=== PATIENT | female | born 1940 | race Caucasian/White ===

== ENCOUNTER → 2016-05-11 | Outpatient (CLI) | payer MEDICARE, OTHER ==
[2016-05-11 10:05] LABS: ALANINE AMINOTRANSFERASE 29 U/L (9-52); ALBUMIN 4.4 g/dL (3.5-5.0); ALKALINE PHOSPHATASE 72 U/L (38-126); ANION GAP 13 (5-19); ASPARTATE AMINO TRANSFERASE 27 U/L (14-36); BILIRUBIN,DIRECT 0.1 mg/dL (0.0-0.4); BILIRUBIN,TOTAL 0.8 mg/dL (0.2-1.3); BLOOD UREA NITROGEN 23 mg/dL (7-20); CALCIUM 9.1 mg/dL (8.4-10.2); CARBON DIOXIDE 28 mmol/L (22-30); CHLORIDE 100 mmol/L (98-107); CHOLESTEROL 226.99 mg/dL (0-200); CREATININE RESULT 0.77 mg/dL (0.52-1.25); Direct HDL 58 mg/dL (>40); GLUCOSE 141 mg/dL (75-110); POTASSIUM 4.1 mmol/L (3.6-5.0); TOTAL PROTEIN 6.9 g/dL (6.3-8.2); TRIGLYCERIDES 99 mg/dL (<150)
[2016-05-11 10:22] LABS: DIRECT LDL 127 mg/dL (<100)
[2016-05-11 10:27] LABS: ANION GAP 13 (5-19); BLOOD UREA NITROGEN 23 mg/dL (7-20); CALCIUM 9.1 mg/dL (8.4-10.2); CARBON DIOXIDE 28 mmol/L (22-30); CHLORIDE 100 mmol/L (98-107); CHOLESTEROL 226.99 mg/dL (0-200); CREATININE RESULT 0.77 mg/dL (0.52-1.25); DIRECT LDL 127 mg/dL (<100); Direct HDL 58 mg/dL (>40); GLUCOSE 141 mg/dL (75-110); POTASSIUM 4.1 mmol/L (3.6-5.0); TRIGLYCERIDES 99 mg/dL (<150)
== END ==
LOC: OD 08:05
PROVIDERS: ATTEND Family Medicine
DX: E11.9 Type 2 diabetes mellitus without complications (principal); I10 Essential (primary) hypertension; E78.5 Hyperlipidemia, unspecified
CPT/HCPCS: 36415; 80048; 80053; 80061; 83036; 84443

== ENCOUNTER 2016-06-08 15:04 | Emergency (ER) | payer MEDICARE, OTHER ==
--- NOTE | 2016-06-08 16:00 | ER Document Report ---
ED Medical Screen (RME) - General Chief Complaint: Swelling of Lower Extremity Stated Complaint: SWOLLEN LEGS Mode of Arrival: Ambulatory Information source: Patient TRAVEL OUTSIDE OF THE [place] IN LAST 30 DAYS: No - HPI Onset: Other - 2 WEEKS? Onset/Duration: Gradual Quality of pain: Pressure Severity: Mild Associated Symptoms: Leg swelling. denies: Chest pain, Chills, Fever, Shortness of breath Exacerbated by: Other - WORSE LATE IN THE DAY Relieved by: Denies Similar symptoms previously: No Recently seen / treated by doctor: Yes - Related Data Smoking: Non-smoker Frequency of alcohol use: None Drug Abuse: None Allergies/Adverse Reactions: diphenhydramine HCl [From Benadryl] Allergy (Severe, Verified 06/08/16 15:53) trouble breathing, redness of skin cortisone [Cortisone] Allergy (Unknown, Verified 06/08/16 15:53) oxcarbazepine [From Trileptal] Allergy (Verified 06/08/16 15:53) WEIGHT LOSS erythromycin base [Erythromycin Base] Adverse Reaction (Mild, Verified 06/08/16 15:53) upset stomach Sulfa (Sulfonamide Antibiotics) Adverse Reaction (Mild, Verified 06/08/16 15:53) itchy eyes IVP dye Allergy (Mild, Uncoded 06/08/16 15:53) splotches Past Medical History - General Information source: Patient - Social History Cigarette use (# per day): No Chew tobacco use (# tins/day): No Frequency of alcohol use: None Drug Abuse: None Lives with: Family Family history: None - Past Medical History Cardiac Medical History: Reports: Hx Hypercholesterolemia, Hx Hypertension - UP AND DOWN Denies: Hx Coronary Artery Disease - Neg cath 11/16, Hx Heart Attack - catherization Pulmonary Medical History: Reports: Hx Bronchitis Denies: Hx Asthma, Hx COPD, Hx Pneumonia, Hx Tuberculosis Neurological Medical History: Denies: Hx Cerebrovascular Accident, Hx Seizures Renal/ Medical History: Denies: Hx Peritoneal Dialysis GI Medical History: Reports: Hx Gastroesophageal Reflux Disease, Hx Hiatal Hernia, Hx Ulcer - years ago. Denies: Hx Hepatitis Musculoskeltal Medical History: Reports Hx Arthritis Psychiatric Medical History: Reports: Hx Anxiety, Hx Bipolar Disorder, Hx Depression Infectious Medical History: Denies: Hx Hepatitis Past Surgical History: Reports: Hx Cardiac Catheterization - 11/2011, Hx Cholecystectomy, Hx Hysterectomy, Hx Orthopedic Surgery - cyst removed right wrist and right shoulder. Denies: Hx Mastectomy, Hx Open Heart Surgery, Hx Pacemaker - Immunizations Immunizations up to date: No Hx Diphtheria, Pertussis, Tetanus Vaccination: No - unk Review of Systems - Review of Systems Constitutional: No symptoms reported EENT: No symptoms reported Cardiovascular: Edema. denies: Chest pain, Palpitations, Orthopnea Respiratory: No symptoms reported Gastrointestinal: No symptoms reported Skin: No symptoms reported Neurological/Psychological: No symptoms reported Physical Exam - Vital signs Vitals: Temp Pulse Resp BP Pulse Ox 98.7 F 88 20 171/71 H 97 06/08/16 15:14 06/08/16 15:14 06/08/16 15:14 06/08/16 15:14 06/08/16 15:14 Interpretation: Hypertensive. No: Tachycardic, Tachypneic - General General appearance: Appears well, Alert In distress: None - HEENT Head: Normocephalic Eyes: Normal Conjunctiva: Normal Ears: Normal Nasal: Normal Mouth/Lips: Normal Mucous membranes: Normal - Respiratory Respiratory status: No respiratory distress - Cardiovascular Rhythm: Regular - Abdominal Inspection: Obese - Back Back: Normal - Extremities General upper extremity: Normal inspection General lower extremity: Edema - 2+ BILAT.. No: Normal inspection Course - Vital Signs Vital signs: Temp Pulse Resp BP Pulse Ox 98.7 F 88 20 171/71 H 97 06/08/16 15:14 06/08/16 15:14 06/08/16 15:14 06/08/16 15:14 06/08/16 15:14
[2016-06-08 17:07] LABS: APPEARANCE,URINE CLEAR; BILIRUBIN,URINE NEGATIVE (NEGATIVE); GLUCOSE, URINE NEGATIVE (NEGATIVE); KETONES,URINE NEGATIVE (NEGATIVE); LEUKOCYTE ESTERASE,URINE NEGATIVE (NEGATIVE); NITRITE,URINE NEGATIVE (NEGATIVE); PROTEIN,URINE NEGATIVE (NEGATIVE); URINE SPECIFIC GRAVITY 1.005; UROBILINOGEN,URINE NEGATIVE mg/dL (<2.0)
--- NOTE | 2016-06-08 18:35 | ER Document Report ---
ED General - General Chief Complaint: Swelling of Lower Extremity Stated Complaint: SWOLLEN LEGS Mode of Arrival: Ambulatory Information source: Patient, [facility] Records Notes: This is a 76-year-old female who presents for evaluation of edema. She states that she feels swollen all over but specifically in her legs. She states that this has been progressing for the past 2 weeks. She did see her primary care physician Dr. Miles 2 weeks ago, and states that she was told to take Lasix twice a day which she has been compliant with. She states that her lower extremity swelling has gotten worse. Of note she denies any chest pain or shortness of breath although occasionally she has some dyspnea on exertion but this does not appear to be new for her. She denies any fevers chills or systemic symptoms. She has had no dysuria. TRAVEL OUTSIDE OF THE [place] IN LAST 30 DAYS: No - Related Data Allergies/Adverse Reactions: diphenhydramine HCl [From Benadryl] Allergy (Severe, Verified 06/08/16 15:53) trouble breathing, redness of skin cortisone [Cortisone] Allergy (Unknown, Verified 06/08/16 15:53) oxcarbazepine [From Trileptal] Allergy (Verified 06/08/16 15:53) WEIGHT LOSS erythromycin base [Erythromycin Base] Adverse Reaction (Mild, Verified 06/08/16 15:53) upset stomach Sulfa (Sulfonamide Antibiotics) Adverse Reaction (Mild, Verified 06/08/16 15:53) itchy eyes IVP dye Allergy (Mild, Uncoded 06/08/16 15:53) splotches Past Medical History - General Information source: Patient - Social History Smoking Status: Unknown if Ever Smoked Cigarette use (# per day): No Chew tobacco use (# tins/day): No Frequency of alcohol use: None Drug Abuse: None Lives with: Family Family History: Reviewed & Not Pertinent Patient has suicidal ideation: No Patient has homicidal ideation: No - Past Medical History Cardiac Medical History: Reports: Hx Hypercholesterolemia, Hx Hypertension - UP AND DOWN Denies: Hx Coronary Artery Disease - Neg cath 11/16, Hx Heart Attack - catherization Pulmonary Medical History: Reports: Hx Bronchitis Denies: Hx Asthma, Hx COPD, Hx Pneumonia, Hx Tuberculosis Neurological Medical History: Denies: Hx Cerebrovascular Accident, Hx Seizures Renal/ Medical History: Denies: Hx Peritoneal Dialysis GI Medical History: Reports: Hx Gastroesophageal Reflux Disease, Hx Hiatal Hernia, Hx Ulcer - years ago. Denies: Hx Hepatitis Musculoskeltal Medical History: Reports Hx Arthritis Psychiatric Medical History: Reports: Hx Anxiety, Hx Bipolar Disorder, Hx Depression Infectious Medical History: Denies: Hx Hepatitis Past Surgical History: Reports: Hx Cardiac Catheterization - 11/2011, Hx Cholecystectomy, Hx Hysterectomy, Hx Orthopedic Surgery - cyst removed right wrist and right shoulder. Denies: Hx Mastectomy, Hx Open Heart Surgery, Hx Pacemaker - Immunizations Immunizations up to date: No Hx Diphtheria, Pertussis, Tetanus Vaccination: No - unk Hx Pneumococcal Vaccination: 11/06/11 Review of Systems - Review of Systems Constitutional: denies: Chills, Fever, Weakness, Recent illness EENT: No symptoms reported. denies: Nose congestion, Throat pain Cardiovascular: See HPI. denies: Chest pain, Palpitations, Orthopnea Respiratory: No symptoms reported. denies: Cough, Hurts to breathe Gastrointestinal: No symptoms reported Genitourinary: No symptoms reported. denies: Dysuria Musculoskeletal: See HPI, Leg swelling Skin: No symptoms reported Neurological/Psychological: No symptoms reported Physical Exam - Vital signs Vitals: Temp Pulse Resp BP Pulse Ox 98.7 F 88 20 171/71 H 97 06/08/16 15:14 06/08/16 15:14 06/08/16 15:14 06/08/16 15:14 06/08/16 15:14 - Notes Notes: PHYSICAL EXAMINATION: GENERAL: Well-appearing, well-nourished and in no acute distress. Very pleasant and conversant with no conversational dyspnea HEAD: Atraumatic, normocephalic. EYES: Pupils equal round and reactive to light, extraocular movements intact, sclera anicteric, conjunctiva are normal. ENT: nares patent, oropharynx clear without exudates. Moist mucous membranes. NECK: Normal range of motion, supple without lymphadenopathy LUNGS: Breath sounds clear to auscultation bilaterally and equal. No wheezes rales or rhonchi. HEART: Regular rate and rhythm without murmurs ABDOMEN: Soft, nontender, normoactive bowel sounds. No guarding, no rebound. No masses appreciated. EXTREMITIES: Normal range of motion. 2+ pitting edema BLE which is symmetric, mild erythema to anterior shins bilaterally, DNVI NEUROLOGICAL: Cranial nerves grossly intact. Normal speech. Motor strength +5/ 5 B upper and lower extremities, no focal sensory deficits noted PSYCH: Normal mood, normal affect. SKIN: Warm, Dry, no rashes or lesions noted. Course - Re-evaluation Re-evalutation: 06/08/16 20:00 Labs, EKG and chest x-ray reviewed and are reassuring. The patient has no chest pain or shortness of breath. 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 Webb earlier today about her symptoms. He recommended that she cut her dose of amlodipine and half. She actually has a follow-up appointment with him on Sunday which is 4 days. She is instructed to decrease her dose of amlodipine as directed and she will take an extra dose of Lasix tonight. Also she is instructed to elevate her legs when able. She is appropriate for discharge at this time, and she is very comfortable with the plan. Strict return precautions were discussed. - Vital Signs Vital signs: Temp Pulse Resp BP Pulse Ox 98.3 F 61 16 159/75 H 97 06/08/16 20:20 06/08/16 20:20 06/08/16 20:20 06/08/16 20:20 06/08/16 20:20 - Laboratory Result Diagrams: 06/08/16 18:30 06/08/16 18:30 Laboratory results interpreted by me: 06/08/16 06/08/16 18:30 18:30 RBC 5.39 H Glucose 130 H Discharge - Discharge Clinical Impression: Peripheral edema Hypertension Qualifiers: Hypertension type: essential hypertension Qualified Code(s): I10 - Essential ( primary) hypertension Condition: Stable Disposition: HOME, SELF-CARE Additional Instructions: Edema, Peripheral You have swelling in your legs. This is called peripheral edema. It can be caused by "leaky capillaries," inflammation, disease of the leg veins, or excess salt and water in your body. Edema may be a sign of heart, kidney, or liver disease. A medical evaluation can determine if there is a serious underlying cause for your edema. Avoid prolonged standing. If you must sit for a long time, occasionally get up and walk around or elevate your legs. Support stockings can be helpful in limiting swelling. Often diuretic or water pills are used to remove excess salt and water from your body. Call the doctor or return if you develop increased swelling, pain, or redness, shortness of breath, chest pain, or any other significant change. As discussed and recommended by your steamboat captain today, decrease your Amlodipine dose by 1/2. Also, take an extra dose of your lasix tonight. Elevate your legs when able. Follow up with Dr. Webb on Sunday as scheduled. Return to the ER for fever, chest pain, breathing trouble, or any worsening symptoms or concerns as we discussed. Forms: Elevated Blood Pressure Referrals: YON MILES MD [Primary Care Provider] - Follow up in 3-5 days
[2016-06-08 18:59] LABS: ABSOLUTE BASOPHILS # (AUTO) 0.1 10^3/uL (0.0-0.2); ABSOLUTE EOSINOPHILS # (AUTO) 0.3 10^3/uL (0.0-0.6); ABSOLUTE LYMPHOCYTES (AUTO) 1.5 10^3/uL (0.5-4.7); ABSOLUTE MONOCYTES (AUTO) 0.5 10^3/uL (0.1-1.4); ABSOLUTE NEUT (AUTO) 4.9 10^3/uL (1.7-8.2); BASOPHILS % (AUTO) 1.1 % (0-2); EOSINOPHILS % (AUTO) 4.4 % (0-6); HEMATOCRIT 46.2 % (36.0-47.0); HEMOGLOBIN 15.4 g/dL (12.0-15.5); LYMPHOCYTES % (AUTO) 20.8 % (13-45); MEAN CORPUSCULAR HEMOGLOBIN 28.6 pg (27.0-33.4); MEAN CORPUSCULAR HGB CONC 33.4 g/dL (32.0-36.0); MEAN CORPUSCULAR VOLUME 86 fl (80-97); MONOCYTES % (AUTO) 6.9 % (3-13); RED BLOOD COUNT 5.39 10^6/uL (3.72-5.28); RED CELL DISTRIBUTION WIDTH 13.3 % (11.5-14.0); SEGMENTED NEUTROPHILS % (AUTO) 66.8 % (42-78); WHITE BLOOD COUNT 7.4 10^3/uL (4.0-10.5)
[2016-06-08 19:21] LABS: ALANINE AMINOTRANSFERASE 37 U/L (9-52); ALBUMIN 4.5 g/dL (3.5-5.0); ALKALINE PHOSPHATASE 87 U/L (38-126); ANION GAP 14 (5-19); ASPARTATE AMINO TRANSFERASE 31 U/L (14-36); BILIRUBIN,DIRECT 0.3 mg/dL (0.0-0.4); BILIRUBIN,TOTAL 0.9 mg/dL (0.2-1.3); BLOOD UREA NITROGEN 18 mg/dL (7-20); CARBON DIOXIDE 28 mmol/L (22-30); CHLORIDE 100 mmol/L (98-107); CREATININE RESULT 0.79 mg/dL (0.52-1.25); GLUCOSE 130 mg/dL (75-110); POTASSIUM 4.2 mmol/L (3.6-5.0); SODIUM 141.5 mmol/L (137-145); TOTAL PROTEIN 7.5 g/dL (6.3-8.2)
[2016-06-08 20:27] VITALS: BP 159/75
--- NOTE | 2016-06-09 08:14 | EKG REPORT ---
SEVERITY:- ABNORMAL ECG - SINUS RHYTHM JAYNE, CONSIDER BIATRIAL ABNORMALITIES LEFT BUNDLE BRANCH BLOCK : Confirmed by: Jose Bell MD 09-Jun-2016 08:13:40
== END 2016-06-08 20:20 | disposition home or self-care (01) ==
LOC: ER 15:04
DX: R60.0 Localized edema (principal); I10 Essential (primary) hypertension; M79.89 Other specified soft tissue disorders
CPT/HCPCS: 36415; 71010; 80053; 81001; 83880; 85025; 93005; 93010; 99283

== ENCOUNTER 2016-08-07 20:27 | Emergency (ER) | payer MEDICARE, OTHER ==
[2016-08-07 21:59] LABS: AMORPHOUS SEDIMENT,URINE TRACE /HPF; APPEARANCE,URINE SLIGHTLY-CLOUDY; BILIRUBIN,URINE NEGATIVE (NEGATIVE); GLUCOSE, URINE NEGATIVE (NEGATIVE); KETONES,URINE NEGATIVE (NEGATIVE); LEUKOCYTE ESTERASE,URINE LARGE (NEGATIVE); NITRITE,URINE NEGATIVE (NEGATIVE); PROTEIN,URINE NEGATIVE (NEGATIVE); URINE SPECIFIC GRAVITY 1.005; UROBILINOGEN,URINE NEGATIVE mg/dL (<2.0)
[2016-08-07] MEDS ORDERED: CEPHALEXIN 500 MG CAPSULE PO ONE (22:24)
[2016-08-07] MEDS ORDERED: PHENAZOPYRIDINE HCL 100 MG TABLET PO ONE (22:24)
--- NOTE | 2016-08-07 22:26 | ER Document Report ---
ED General - General Chief Complaint: Urinary Problem Stated Complaint: PAINFUL URINATION Time Seen by Provider: 08/07/16 22:12 Notes: Patient is a 76-year-old female who presents with 10 days of dysuria that has been unresolved despite outpatient treatment with nitrofurantoin. Patient does describe it as a severe, burning pain that is worsened by passing urine. Nothing improves the pain other than Pyridium. Patient states this feels similar to when she has had urinary tract infections in the past. Denies any flank pain, fever or constitutional symptoms. TRAVEL OUTSIDE OF THE [place] IN LAST 30 DAYS: No - Related Data Allergies/Adverse Reactions: diphenhydramine HCl [From Benadryl] Allergy (Severe, Verified 08/07/16 21:17) trouble breathing, redness of skin cortisone [Cortisone] Allergy (Unknown, Verified 08/07/16 21:17) oxcarbazepine [From Trileptal] Allergy (Verified 08/07/16 21:17) WEIGHT LOSS erythromycin base [Erythromycin Base] Adverse Reaction (Mild, Verified 08/07/16 21:17) upset stomach Sulfa (Sulfonamide Antibiotics) Adverse Reaction (Mild, Verified 08/07/16 21:17) itchy eyes IVP dye Allergy (Mild, Uncoded 08/07/16 21:17) splotches Past Medical History - General Information source: Patient - Social History Smoking Status: Never Smoker Chew tobacco use (# tins/day): No Frequency of alcohol use: None Drug Abuse: None Lives with: Family Family History: Reviewed & Not Pertinent Patient has suicidal ideation: No Patient has homicidal ideation: No - Past Medical History Cardiac Medical History: Reports: Hx Hypercholesterolemia, Hx Hypertension - UP AND DOWN Denies: Hx Coronary Artery Disease - Neg cath 11/16, Hx Heart Attack - catherization Pulmonary Medical History: Reports: Hx Bronchitis Denies: Hx Asthma, Hx COPD, Hx Pneumonia, Hx Tuberculosis Neurological Medical History: Denies: Hx Cerebrovascular Accident, Hx Seizures Renal/ Medical History: Denies: Hx Peritoneal Dialysis GI Medical History: Reports: Hx Gastroesophageal Reflux Disease, Hx Hiatal Hernia, Hx Ulcer - years ago. Denies: Hx Hepatitis Musculoskeltal Medical History: Reports Hx Arthritis Psychiatric Medical History: Reports: Hx Anxiety, Hx Bipolar Disorder, Hx Depression Infectious Medical History: Denies: Hx Hepatitis Past Surgical History: Reports: Hx Cardiac Catheterization - 11/2011, Hx Cholecystectomy, Hx Hysterectomy, Hx Orthopedic Surgery - cyst removed right wrist and right shoulder. Denies: Hx Mastectomy, Hx Open Heart Surgery, Hx Pacemaker - Immunizations Immunizations up to date: No Hx Diphtheria, Pertussis, Tetanus Vaccination: No - unk Hx Pneumococcal Vaccination: 11/06/11 Review of Systems - Review of Systems Notes: Constitutional: Negative for fever. HENT: Negative for sore throat. Eyes: Negative for visual changes. Cardiovascular: Negative for chest pain. Respiratory: Negative for shortness of breath. Gastrointestinal: Negative for abdominal pain, vomiting or diarrhea. Genitourinary: Positive for dysuria. Musculoskeletal: Negative for back pain. Skin: Negative for rash. Neurological: Negative for headaches, weakness or numbness. 10 point ROS negative except as marked above and in HPI. Physical Exam - Vital signs Vitals: Temp Pulse Resp BP Pulse Ox 98.6 F 58 L 18 140/85 H 100 08/07/16 21:17 08/07/16 21:17 08/07/16 21:17 08/07/16 21:17 08/07/16 21:17 Interpretation: Bradycardic Notes: PHYSICAL EXAMINATION: GENERAL: Well-appearing, well-nourished and in no acute distress. HEAD: Atraumatic, normocephalic. EYES: Pupils equal round and reactive to light, extraocular movements intact, sclera anicteric, conjunctiva are normal. ENT: nares patent, oropharynx clear without exudates. Moist mucous membranes. NECK: Normal range of motion, supple without lymphadenopathy LUNGS: Breath sounds clear to auscultation bilaterally and equal. No wheezes rales or rhonchi. HEART: Regular rate and rhythm without murmurs ABDOMEN: Soft, nontender, normoactive bowel sounds. No guarding, no rebound. No masses appreciated. No flank tenderness on palpation EXTREMITIES: Normal range of motion, no pitting or edema. No cyanosis. NEUROLOGICAL: No focal neurological deficits. Moves all extremities spontaneously and on command. PSYCH: Normal mood, normal affect. SKIN: Warm, Dry, normal turgor, no rashes or lesions noted. Course - Re-evaluation Re-evalutation: 08/07/16 22:24 Patient presents with symptoms consistent with an acute cystitis. Vitals wnl. No history of fever, flank pain, or constitution symptoms to suggest ascending infection at this time. Patient is well in appearance, tolerating oral intake without difficulty. No focal abdominal tenderness to suggest acute appendicitis , biliary pathology, acute pancreatitis, tubo-ovarian abscesses, or pelvic inflammatory disease. Patient will be started on antibiotics at this time. A culture has been sent. They will be discharged with return precautions and follow-up recommendations. - Vital Signs Vital signs: Temp Pulse Resp BP Pulse Ox 98.6 F 53 L 16 152/55 H 96 08/07/16 22:34 08/07/16 22:34 08/07/16 22:34 08/07/16 22:34 08/07/16 22:34 - Laboratory Laboratory results interpreted by me: 08/07/16 21:30 Urine Blood MODERATE H Ur Leukocyte Esterase LARGE H Discharge - Discharge Clinical Impression: Cystitis Condition: Good Disposition: HOME, SELF-CARE Additional Instructions: Your urine shows findings consistent with a urinary tract infection. Please take all the antibiotics as directed even if your symptoms have improved. Please follow-up with your primary care physician as needed. Return to emergency room if you develop fever >101F, persistent vomiting, become lethargic , have severe pain in your sides, or any other symptoms that are concerning to you. Prescriptions: Cephalexin Monohydrate [Keflex 500 mg Capsule] 500 mg PO QID #20 capsule Phenazopyridine HCl [Pyridium 100 Mg Tablet] 100 mg PO TID #15 tablet Referrals: YON WILLETT MD [Primary Care Provider] - Follow up as needed
[2016-08-07 22:41] VITALS: BP 152/55
== END 2016-08-07 22:40 | disposition home or self-care (01) ==
LOC: ER 20:27
DX: N30.90 Cystitis, unspecified without hematuria (principal); E78.00 Pure hypercholesterolemia, unspecified; I10 Essential (primary) hypertension; K21.9 Gastro-esophageal reflux disease without esophagitis; Z88.3 Allergy status to other anti-infective agents; Z88.2 Allergy status to sulfonamides; Z90.49 Acquired absence of other specified parts of digestive tract; Z90.710 Acquired absence of both cervix and uterus
CPT/HCPCS: 99283; 36415; 87086; 87088; 81001; 87186; A9270 ×2; J3490

== ENCOUNTER 2016-08-13 17:34 | Emergency (ER) | payer MEDICARE, OTHER ==
--- NOTE | 2016-08-13 18:12 | ER Document Report ---
ED Medical Screen (RME) - General Chief Complaint: Urinary Problem Stated Complaint: URINARY SYMPTOMS Time Seen by Provider: 08/13/16 18:04 Mode of Arrival: Ambulatory Information source: Patient Notes: 76-year-old female with complaints of abdominal pain urinary symptoms and flank pain. Patient notes she has been on recent 2 doses of antibiotics I have greeted and performed a rapid initial assessment of this patient. A comprehensive ED assessment and evaluation of the patient, analysis of test results and completion of the medical decision making process will be conducted by additional ED providers. PHYSICAL EXAMINATION: GENERAL: Well-appearing, well-nourished and in no acute distress. HEAD: Atraumatic, normocephalic. EYES: Pupils equal round extraocular movements intact, conjunctiva are normal. ENT: Nares patent NECK: Normal range of motion LUNGS: No respiratory distress Musculoskeletal: Normal range of motion NEUROLOGICAL: Normal speech, normal gait. PSYCH: Normal mood, normal affect. SKIN: Warm, Dry, normal turgor, no rashes or lesions noted. TRAVEL OUTSIDE OF THE [place] IN LAST 30 DAYS: No - Related Data Allergies/Adverse Reactions: diphenhydramine HCl [From Benadryl] Allergy (Severe, Verified 08/07/16 21:17) trouble breathing, redness of skin cortisone [Cortisone] Allergy (Unknown, Verified 08/07/16 21:17) oxcarbazepine [From Trileptal] Allergy (Verified 08/07/16 21:17) WEIGHT LOSS erythromycin base [Erythromycin Base] Adverse Reaction (Mild, Verified 08/07/16 21:17) upset stomach Sulfa (Sulfonamide Antibiotics) Adverse Reaction (Mild, Verified 08/07/16 21:17) itchy eyes IVP dye Allergy (Mild, Uncoded 08/07/16 21:17) splotches Past Medical History - Social History Family history: None - Past Medical History Cardiac Medical History: Reports: Hx Hypercholesterolemia, Hx Hypertension - UP AND DOWN Denies: Hx Coronary Artery Disease - Neg cath 11/16, Hx Heart Attack - catherization Pulmonary Medical History: Reports: Hx Bronchitis Denies: Hx Asthma, Hx COPD, Hx Pneumonia, Hx Tuberculosis Neurological Medical History: Denies: Hx Cerebrovascular Accident, Hx Seizures Renal/ Medical History: Denies: Hx Peritoneal Dialysis GI Medical History: Reports: Hx Gastroesophageal Reflux Disease, Hx Hiatal Hernia, Hx Ulcer - years ago. Denies: Hx Hepatitis Musculoskeltal Medical History: Reports Hx Arthritis Psychiatric Medical History: Reports: Hx Anxiety, Hx Bipolar Disorder, Hx Depression Infectious Medical History: Denies: Hx Hepatitis Past Surgical History: Reports: Hx Cardiac Catheterization - 11/2011, Hx Cholecystectomy, Hx Hysterectomy, Hx Orthopedic Surgery - cyst removed right wrist and right shoulder. Denies: Hx Mastectomy, Hx Open Heart Surgery, Hx Pacemaker - Immunizations Immunizations up to date: No Hx Diphtheria, Pertussis, Tetanus Vaccination: No - unk Physical Exam - Vital signs Vitals: Temp Pulse Resp BP Pulse Ox 98 F 82 17 193/63 H 95 08/13/16 17:51 08/13/16 17:51 08/13/16 17:51 08/13/16 17:51 08/13/16 17:51 Course - Vital Signs Vital signs: Temp Pulse Resp BP Pulse Ox 98 F 82 17 193/63 H 95 08/13/16 17:51 08/13/16 17:51 08/13/16 17:51 08/13/16 17:51 08/13/16 17:51
[2016-08-13 18:47] LABS: APPEARANCE,URINE CLEAR; BILIRUBIN,URINE NEGATIVE (NEGATIVE); GLUCOSE, URINE NEGATIVE (NEGATIVE); KETONES,URINE NEGATIVE (NEGATIVE); LEUKOCYTE ESTERASE,URINE NEGATIVE (NEGATIVE); NITRITE,URINE NEGATIVE (NEGATIVE); PROTEIN,URINE NEGATIVE (NEGATIVE); URINE SPECIFIC GRAVITY 1.002; UROBILINOGEN,URINE NEGATIVE mg/dL (<2.0)
[2016-08-13 19:10] LABS: ABSOLUTE BASOPHILS # (AUTO) 0.1 10^3/uL (0.0-0.2); ABSOLUTE EOSINOPHILS # (AUTO) 0.4 10^3/uL (0.0-0.6); ABSOLUTE LYMPHOCYTES (AUTO) 2.1 10^3/uL (0.5-4.7); ABSOLUTE MONOCYTES (AUTO) 0.6 10^3/uL (0.1-1.4); ABSOLUTE NEUT (AUTO) 5.3 10^3/uL (1.7-8.2); EOSINOPHILS % (AUTO) 4.7 % (0-6); HEMATOCRIT 47.1 % (36.0-47.0); HEMOGLOBIN 15.7 g/dL (12.0-15.5); LYMPHOCYTES % (AUTO) 24.9 % (13-45); MEAN CORPUSCULAR HEMOGLOBIN 28.4 pg (27.0-33.4); MEAN CORPUSCULAR HGB CONC 33.4 g/dL (32.0-36.0); MEAN CORPUSCULAR VOLUME 85 fl (80-97); MONOCYTES % (AUTO) 7.1 % (3-13); RED BLOOD COUNT 5.54 10^6/uL (3.72-5.28); RED CELL DISTRIBUTION WIDTH 13.5 % (11.5-14.0); SEGMENTED NEUTROPHILS % (AUTO) 62.3 % (42-78); WHITE BLOOD COUNT 8.5 10^3/uL (4.0-10.5)
--- NOTE | 2016-08-13 19:11 | RADIOLOGY REPORT (SQ) ---
EXAM DESCRIPTION: CT ABD/PELVIS NO ORAL OR IV COMPLETED DATE/TIME: 08/13/2016 6:19 pm REASON FOR STUDY: abd pain COMPARISON: 02/21/2012 TECHNIQUE: CT scan of the abdomen and pelvis performed without intravenous or oral contrast. Images reviewed with lung, soft tissue, and bone windows. Reconstructed coronal and sagittal MPR images revi ewed. All images stored on PACS. All CT scanners at this facility use dose modulation, iterative reconstruction, and/or weight based d osing when appropriate to reduce radiation dose to as low as reasonably achievable (ALARA). [facility]: Dose Right [facility]: CareDose [facility]: Dose Right [facility]: Teradose 4D [facility]: Smart 6fusion RADIATION DOSE: Up-to-date CT equipment and radiation dose reduction techniques were employed. CTDIv ol: 17.1 mGy. DLP: 893 mGy-cm.mGy. LIMITATIONS: None. FINDINGS: LOWER CHEST: No significant findings. No nodules or infiltrates. NON-CONTRASTED LIVER, SPLEEN, ADRENALS: Evaluation limited by lack of IV contrast. No identified sign ificant masses. PANCREAS: No masses. No peripancreatic inflammatory changes. GALLBLADDER: Surgically absent. RIGHT KIDNEY AND URETER: No suspicious masses. Assessment limited by lack of IV contrast. No signif icant calcifications. No hydronephrosis or hydroureter. LEFT KIDNEY AND URETER: No suspicious masses. Assessment limited by lack of IV contrast. No signifi cant calcifications. No hydronephrosis or hydroureter. AORTA AND RETROPERITONEUM: No aneurysm. No retroperitoneal masses or adenopathy. BOWEL AND PERITONEAL CAVITY: Colonic diverticulosis. No obvious masses or inflammatory changes. No f ree fluid. APPENDIX: Normal. PELVIS, BLADDER, AND ABDOMINAL WALL:Prior hysterectomy. No free fluid. Bladder normal. BONES: No significant findings. OTHER: No other significant finding. IMPRESSION: NO ACUTE PROCESS IN THE ABDOMEN OR PELVIS. TECHNICAL DOCUMENTATION: JOB ID: [id number] Quality ID # [id number]: Final reports with documentation of one or more dose reduction techniques (e.g., Au tomated exposure control, adjustment of the mA and/or kV according to patient size, use of iterative reconstruction technique) 2010 [employer]- All Rights Reserved
--- NOTE | 2016-08-13 19:25 | ER Document Report ---
ED GI/ - General Chief Complaint: Urinary Problem Stated Complaint: URINARY SYMPTOMS Time Seen by Provider: 08/13/16 18:04 Mode of Arrival: Ambulatory Notes: The 76-year-old female presents to ED for urinary tract symptoms and pain in his flank. No fever no nausea or vomiting. She had a UTI on July 26 and that antibiotics and on Sunday she was seen and get another set of antibiotics she states she continued to have pelvic pain flank pain. TRAVEL OUTSIDE OF THE [place] IN LAST 30 DAYS: No - HPI Patient complains to provider of: Flank pain, Pelvic pain, Vaginal pain Onset: Timing/Duration: Intermittent Quality of pain: Burning Severity at maximum: Severe Severity in ED: Moderate Pain Level: 3 Location: Left flank, Right flank, Pelvis, Vaginal Vaginal bleeding (Compared to normal period): None Associated symptoms: Radiates to back Exacerbated by: Other - urination Relieved by: Denies Similar symptoms previously: Yes Recently seen / treated by doctor: Yes - Related Data Allergies/Adverse Reactions: diphenhydramine HCl [From Benadryl] Allergy (Severe, Verified 08/13/16 22:41) trouble breathing, redness of skin cortisone [Cortisone] Allergy (Unknown, Verified 08/13/16 22:41) oxcarbazepine [From Trileptal] Allergy (Verified 08/13/16 22:41) WEIGHT LOSS erythromycin base [Erythromycin Base] Adverse Reaction (Mild, Verified 08/13/16 22:41) upset stomach Sulfa (Sulfonamide Antibiotics) Adverse Reaction (Mild, Verified 08/13/16 22:41) itchy eyes IVP dye Allergy (Mild, Uncoded 08/13/16 22:41) splotches Past Medical History - General Information source: Patient - Social History Smoking Status: Never Smoker Cigarette use (# per day): No Chew tobacco use (# tins/day): No Smoking Education Provided: No Frequency of alcohol use: Rare Drug Abuse: None Occupation: Retired Lives with: Alone Family History: Reviewed & Not Pertinent Patient has suicidal ideation: No Patient has homicidal ideation: No - Past Medical History Cardiac Medical History: Reports: Hx Hypercholesterolemia, Hx Hypertension - UP AND DOWN Denies: Hx Coronary Artery Disease - Neg cath 11/16 Pulmonary Medical History: Reports: Hx Bronchitis EENT Medical History: Reports: None Neurological Medical History: Reports: None Endocrine Medical History: Reports: Hx Diabetes Mellitus Type 2 Renal/ Medical History: Reports: Other - fibroids Malignancy Medical History: Reports: None GI Medical History: Reports: Hx Gastroesophageal Reflux Disease, Hx Hiatal Hernia, Hx Ulcer - years ago, Hx Colonoscopy, Hx Endoscopy Musculoskeltal Medical History: Reports Hx Arthritis Skin Medical History: Reports None Psychiatric Medical History: Reports: Hx Anxiety, Hx Bipolar Disorder, Hx Depression Traumatic Medical History: Reports: None Infectious Medical History: Reports: None Past Surgical History: Reports: Hx Cardiac Catheterization - 11/2011, Hx Cholecystectomy, Hx Hysterectomy, Hx Orthopedic Surgery - cyst removed right wrist and right shoulder, Other - cyst removed from right shoulder and hand, 8 eye surgeries - Immunizations Immunizations up to date: No Hx Diphtheria, Pertussis, Tetanus Vaccination: No - unk Hx Pneumococcal Vaccination: 11/06/11 Review of Systems - Review of Systems Constitutional: No symptoms reported EENT: No symptoms reported Cardiovascular: No symptoms reported Respiratory: No symptoms reported Gastrointestinal: Abdominal pain. denies: Diarrhea, Nausea, Vomiting Genitourinary: Flank pain, Other - burning with urination Female Genitourinary: No symptoms reported Musculoskeletal: Back pain Skin: No symptoms reported Hematologic/Lymphatic: No symptoms reported Neurological/Psychological: No symptoms reported Physical Exam - Vital signs Vitals: Temp Pulse Resp BP Pulse Ox 98 F 82 17 193/63 H 95 08/13/16 17:51 08/13/16 17:51 08/13/16 17:51 08/13/16 17:51 08/13/16 17:51 Interpretation: Normal - Notes Notes: Physical Exam: General: Alert, appears well. HEENT: Normocephalic. Atraumatic. PERRLA. Extraocular movements intact. Oropharynx clear. Neck: Supple. Non-tender. Respiratory: No respiratory distress. Clear and equal breath sounds bilaterally. Cardiovascular: Regular rate and rhythm. Abdominal: Normal Inspection. Soft, tender lower abdomen and bilateral flank. No distension. Normal Bowel Sounds. Back: Non-tender. No deformity or step off. Bilateral CVA Extremities: Moves all four extremities. Upper extremities: Normal inspection. Non-tender. Normal color. Normal ROM. Normal temperature. Lower extremities: Normal inspection. Non-tender. No edema. Normal color. Normal ROM. Normal temperature. Neurological: Cranial nerves II-XII grossly intact bilaterally. Strength 5/5 throughout. Sensation intact to light touch. Normal cognition. AAOx4. Normal speech. Psychological: Normal affect. Normal Mood. Skin: Warm. Dry. Normal color. - General General appearance: Appears well, Alert - HEENT Head: Normocephalic, Atraumatic Eyes: Normal Pupils: PERRL - Respiratory Respiratory status: No respiratory distress Chest status: Nontender Breath sounds: Normal Chest palpation: Normal - Cardiovascular Rhythm: Regular Heart sounds: Normal auscultation Murmur: No - Abdominal Inspection: Normal Distension: No distension Bowel sounds: Normal Tenderness: Tender Organomegaly: No organomegaly - Back Back: Normal, Nontender - Extremities General upper extremity: Normal inspection, Nontender, Normal color, Normal ROM , Normal temperature General lower extremity: Normal inspection, Nontender, Normal color, Normal ROM , Normal temperature, Normal weight bearing. No: Sandra's sign - Neurological Neuro grossly intact: Yes Cognition: Normal Orientation: AAOx4 [place] Coma Scale Eye Opening: Spontaneous [place] Coma Scale Verbal: Oriented [place] Coma Scale Motor: Obeys Commands [place] Coma Scale Total: 15 Speech: Normal Motor strength normal: LUE, RUE, LLE, RLE Sensory: Normal - Psychological Associated symptoms: Normal affect, Normal mood - Skin Skin Temperature: Warm Skin Moisture: Dry Skin Color: Normal Course - Re-evaluation Re-evalutation: 08/13/16 23:00 Labs and CAT scan with patient report given to patient to follow-up with her primary doctor. She was instructed to call her primary doctor in the morning to schedule a follow-up appointment. Patient has been drinking fluids throughout her stay here and is tolerating them well no nausea or vomiting. She states the pain has decreased since she has been drinking a lot of water. - Vital Signs Vital signs: Temp Pulse Resp BP Pulse Ox 97.9 F 82 20 138/53 H 96 08/13/16 21:00 08/13/16 17:51 08/13/16 22:01 08/13/16 22:01 08/13/16 22:01 - Laboratory Result Diagrams: 08/13/16 18:47 08/13/16 21:44 Laboratory results interpreted by me: 08/13/16 08/13/16 08/13/16 18:47 19:56 21:44 RBC 5.54 H Hgb 15.7 H Hct 47.1 H Glucose 134 H POC Glucose 166 H - Diagnostic Test Radiology reviewed: Image reviewed, Reports reviewed Discharge - Discharge Clinical Impression: Flank pain Condition: Stable Disposition: HOME, SELF-CARE Additional Instructions: Flank Pain We weren't able to prove an exact cause for your flank pain. Pain in the flank can be caused by a muscle strain or spasm. Sometimes a kidney stone causes pain, but can't be found on our tests. Infection in the kidney should be evident on a urine test. Early shingles can occasionally cause flank pain, without the rash that proves the diagnosis. On rare occasions, disease of the pancreas, aorta, spleen, or colon can create pain in the flank. At this time, there's no evidence of a dangerous condition, and it seems safe for you to be at home. If the pain goes away and does not come back, no further testing will be needed. If pain persists, or becomes more severe, we may need to repeat some tests or order additional new testing. Blood in the urine, urgency to urinate frequently, and pain that radiates to the groin can indicate a kidney stone. Fever may mean that the pain is due to infection, either of the kidney or the colon (diverticulitis). If your pain is early shingles, you should develop an eruption of blisters in the painful area within a few days. Call the doctor or return if you have pain that is spreading or becoming more severe, pain that does not resolve with time, fever, or any other new symptoms. Acetaminophen Acetaminophen may be taken for pain relief or fever control. It's much safer than aspirin, offering a wider range of "safe" dosages. It is safe during . Some brand names are Tylenol, Panadol, Datril, Anacin 3, Tempra, and Liquiprin. Acetaminophen can be repeated every four hours. The following are maximum recommended dosages: WEIGHT Dose Drops Elixir Chewable( 80mg) (LBS.) drprs=droppers tsp=teaspoon 6 40 mg .4 ml (1/2) 6-11 80 mg .8 ml (full) 1/2 tsp 1 tab 12-16 120 mg 1 1/2 drprs 3/4 tsp 1 1/2 tabs 17-23 160 mg 2 drprs 1 tsp 2 tabs 24-30 240 mg 3 drprs 1 1/2 tsp 3 tabs 30-35 320 mg 2 tsp 4 tabs 36-41 360 mg 2 1/4 tsp 4 1 /2 tabs 42-47 400 mg 2 1/2 tsp 5 tabs 48-53 480 mg 3 tsp 6 tabs 54-59 520 mg 3 1/4 tsp 6 1 /2 tabs 60-64 560 mg 3 1/2 tsp 7 tabs 65-70 600 mg 3 3/4 tsp 7 1 /2 tabs 71-76 640 mg 4 tsp 8 tabs 77-82 720 mg 4 1/2 tsp 9 tabs 83-88 800 mg 5 tsp 10 tabs >89 pounds or adults 650 mg to 900 mg Acetaminophen can be repeated every four hours. Maximum daily dose not to exceed 4000 mg. These maximum recommended dosages are slightly higher than the dosages written on the product container, but these dosages are very safe and well below the toxic dosage for acetaminophen. Increase your fluid intake especially water. Call your primary doctor in the morning to schedule a follow-up appointment. Please take your labs that I provided with you to your doctor's appointment. FOLLOW-UP CARE: If you have been referred to a physician for follow-up care, call the physician s office for an appointment as you were instructed or within the next two days. If you experience worsening or a significant change in your symptoms, notify the physician immediately or return to the Emergency Department at any time for re-evaluation.
--- NOTE | 2016-08-13 21:07 | EKG REPORT ---
SEVERITY:- ABNORMAL ECG - SINUS RHYTHM MULTIPLE ATRIAL PREMATURE COMPLEXES PROBABLE LEFT ATRIAL ABNORMALITY LEFT BUNDLE BRANCH BLOCK : Confirmed by: Jose Bell MD 13-Aug-2016 21:06:40
[2016-08-13 22:11] LABS: VENOUS BLOOD BASE EXCESS 4.5 mmol/L; VENOUS BLOOD HCO3 30.9 mmol/L (20-32); VENOUS BLOOD PCO2 52.8 mmHg (35-63); VENOUS BLOOD PH 7.39 (7.30-7.42)
[2016-08-13 22:13] LABS: ALANINE AMINOTRANSFERASE 29 U/L (9-52); ALBUMIN 4.1 g/dL (3.5-5.0); ALKALINE PHOSPHATASE 82 U/L (38-126); ANION GAP 8 (5-19); ASPARTATE AMINO TRANSFERASE 22 U/L (14-36); BILIRUBIN,DIRECT 0.2 mg/dL (0.0-0.4); BILIRUBIN,TOTAL 0.6 mg/dL (0.2-1.3); BLOOD UREA NITROGEN 17 mg/dL (7-20); CALCIUM 9.3 mg/dL (8.4-10.2); CARBON DIOXIDE 28 mmol/L (22-30); CHLORIDE 105 mmol/L (98-107); CREATININE RESULT 0.82 mg/dL (0.52-1.25); GLUCOSE 134 mg/dL (75-110); TOTAL PROTEIN 7.2 g/dL (6.3-8.2)
[2016-08-13 23:11] VITALS: BP 154/59
== END 2016-08-13 23:20 | disposition home or self-care (01) ==
LOC: ER 17:34
DX: R10.9 Unspecified abdominal pain (principal); R10.2 Pelvic and perineal pain; R30.0 Dysuria; M54.9 Dorsalgia, unspecified; E11.9 Type 2 diabetes mellitus without complications; I10 Essential (primary) hypertension; Z87.440 Personal history of urinary (tract) infections; Z88.8 Allergy status to other drugs, medicaments and biological substances; Z91.041 Radiographic dye allergy status
CPT/HCPCS: 36415; 74176; 80053; 81001; 82803; 82962; 83605; 85025; 85610; 87040; 87086; 93005; 93010; 99284

== ENCOUNTER → 2016-09-13 | Outpatient (CLI) | payer MEDICARE, OTHER ==
[2016-09-15 06:39] LABS: THYROXINE (T4) 6.5 ug/dL (4.5-12.0)
[2016-09-15 14:40] LABS: IMMUNOGLOBULIN G 867 mg/dL (700-1600)
[2016-09-16 08:10] LABS: IMMUNOGLOBULIN M 103 mg/dL (26-217)
[2016-09-16 08:12] LABS: DEAMIDATED GLIADIN IGA AB 6 units (0-19); DEAMIDATED GLIADIN IGG AB 2 units (0-19); IMMUNOGLOBULIN A 2 266 mg/dL (64-422); T-TRANSGLUTAMINASE (TTG) IGG <2 U/mL (0-5)
[2016-09-19 11:41] LABS: LEAD UR None Detected ug/L (0-49); MERCURY UR 1 ug/L (0-19); MERCURY/CREAT RATIO UR 1 ug/g creat (0-5)
== END ==
LOC: OD 14:34
PROVIDERS: ATTEND Specialist
DX: E53.8 Deficiency of other specified B group vitamins (principal); E05.90 Thyrotoxicosis, unspecified without thyrotoxic crisis or storm; E11.9 Type 2 diabetes mellitus without complications
CPT/HCPCS: 36415; 82043; 82175; 82607; 82784; 83520; 83655; 83825; 84436; 84443; 84480; 85652; 86038

== ENCOUNTER 2016-11-11 22:08 | Emergency (ER) | payer MEDICARE, OTHER ==
[2016-11-11] MEDS ORDERED: CETIRIZINE 10 MG TABLET PO ONE (23:54)
[2016-11-11] MEDS ORDERED: FAMOTIDINE 20 MG TABLET PO ONE (23:55)
--- NOTE | 2016-11-12 01:14 | ER Document Report ---
ED General - General Chief Complaint: Insect Bite Stated Complaint: POSSIBLE INSECT BITE Time Seen by Provider: 11/11/16 23:54 Mode of Arrival: Ambulatory Information source: Patient Notes: Patient is a 68-year-old female comes emergency room complaining of an insect bite to her left antecubital area. She states she is sitting out on the porch tonight and something better. She has had a reaction to where it is swollen up warm and itchy. Patient denies any other areas of concern and has no history of major reactions to any kind of stings. States she even does not remember being stung. TRAVEL OUTSIDE OF THE [place] IN LAST 30 DAYS: No - HPI Onset: Just prior to arrival Onset/Duration: Constant, Waxing and waning Quality of pain: Other - Itchy Severity: Moderate Pain Level: 2 Associated symptoms: None Exacerbated by: Denies Relieved by: Denies Similar symptoms previously: No Recently seen / treated by doctor: No - Related Data Allergies/Adverse Reactions: diphenhydramine HCl [From Benadryl] Allergy (Severe, Verified 11/11/16 22:37) trouble breathing, redness of skin cortisone [Cortisone] Allergy (Unknown, Verified 11/11/16 22:37) oxcarbazepine [From Trileptal] Allergy (Verified 11/11/16 22:37) WEIGHT LOSS erythromycin base [Erythromycin Base] Adverse Reaction (Mild, Verified 11/11/16 22:37) upset stomach Sulfa (Sulfonamide Antibiotics) Adverse Reaction (Mild, Verified 11/11/16 22:37) itchy eyes IVP dye Allergy (Mild, Uncoded 11/11/16 22:37) splotches Past Medical History - General Information source: Patient - Social History Smoking Status: Former Smoker Frequency of alcohol use: None Drug Abuse: None Lives with: Alone Family History: Reviewed & Not Pertinent - Medical History Notes: History of high blood pressure - Past Medical History Cardiac Medical History: Reports: Hx Hypercholesterolemia, Hx Hypertension - UP AND DOWN Denies: Hx Coronary Artery Disease - Neg cath 11/16, Hx Heart Attack - catherization Pulmonary Medical History: Reports: Hx Bronchitis Denies: Hx Asthma, Hx COPD, Hx Pneumonia, Hx Tuberculosis Neurological Medical History: Denies: Hx Cerebrovascular Accident, Hx Seizures Endocrine Medical History: Reports: Hx Diabetes Mellitus Type 2 Renal/ Medical History: Denies: Hx Peritoneal Dialysis GI Medical History: Reports: Hx Gastroesophageal Reflux Disease, Hx Hiatal Hernia, Hx Ulcer - years ago, Hx Colonoscopy, Hx Endoscopy. Denies: Hx Hepatitis Musculoskeltal Medical History: Reports Hx Arthritis Psychiatric Medical History: Reports: Hx Anxiety, Hx Bipolar Disorder, Hx Depression Infectious Medical History: Denies: Hx Hepatitis Past Surgical History: Reports: Hx Cardiac Catheterization - 11/2011, Hx Cholecystectomy, Hx Hysterectomy, Hx Orthopedic Surgery - cyst removed right wrist and right shoulder, Other - cyst removed from right shoulder and hand, 8 eye surgeries. Denies: Hx Mastectomy, Hx Open Heart Surgery, Hx Pacemaker - Immunizations Immunizations up to date: No Hx Diphtheria, Pertussis, Tetanus Vaccination: No - unk Hx Pneumococcal Vaccination: 11/06/11 Review of Systems - Review of Systems Constitutional: No symptoms reported EENT: No symptoms reported Cardiovascular: No symptoms reported Respiratory: No symptoms reported Gastrointestinal: No symptoms reported Genitourinary: No symptoms reported Female Genitourinary: No symptoms reported Musculoskeletal: No symptoms reported Skin: See HPI, Rash, Other - Allergic reaction Hematologic/Lymphatic: No symptoms reported Neurological/Psychological: No symptoms reported -: Yes All other systems reviewed and negative Physical Exam - Vital signs Vitals: Temp Pulse Resp BP Pulse Ox 98.1 F 59 L 18 191/76 H 95 11/11/16 22:39 11/11/16 22:39 11/11/16 22:39 11/11/16 22:39 11/11/16 22:39 - Notes Notes: Patient is awake alert and oriented 4 answers questions appropriately is in no apparent distress - General General appearance: Appears well - HEENT Head: Normocephalic, Atraumatic Eyes: Normal External canal: Normal Tympanic membrane: Normal Sinus: Normal. No: Swelling Nasal: Normal Mouth/Lips: Normal. No: Angioedema Mucous membranes: Normal, Moist Pharynx: Normal. No: Blood in hypopharynx, Erythema, Exudate, Peritonsillar abscess, Post nasal drainage, Retropharyngeal abscess, Tonsillar hypertrophy, Uvular edema, Potential airway comprom. Neck: Normal, Supple. No: Lymphadenopathy, Meningismus - Respiratory Respiratory status: No respiratory distress Chest status: Nontender Breath sounds: Normal. No: Rales, Rhonchi, Stridor, Wheezing Chest palpation: No: Normal - Cardiovascular Heart sounds: Normal auscultation Murmur: No - Extremities General upper extremity: Tender. No: Normal inspection, Edema Arm: Tender, Other - Examination patient's left arm shows that at the antecubital she has an approximately 8 cm x 5 cm raised area that appears to be a high or urticarial in nature. Mild warmth to it as well there is a secondary hyper type appearance that is attached to a just off the distal portion that is about 3 cm around. Again both are urticarial in nature and in description. Warmth to touch. Question a secondary cellulitis possibility.. No: Normal Elbow: Normal Forearm: Normal Course - Vital Signs Vital signs: Temp Pulse Resp BP Pulse Ox 98.1 F 59 L 18 191/76 H 95 11/11/16 22:39 11/11/16 22:39 11/11/16 22:39 11/11/16 22:39 11/11/16 22:39 - Transfer of Care Notes: 11/12/16 01:15 Patient has allergies to Benadryl hydrocortisone cortisone injection so we have been limited to what we can use. Patient is taking Zyrtec in the past so we are given that again tonight. We also given her some Pepcid as a histamine floresita. We are keeping here over an hour so we can monitor her response to the Zyrtec as well as to the Zyrtec. 11/12/16 01:[address] patient on an antibiotic secondary to the possibilities being in a extensive cellulitis that is needing to be kept in check. 11/12/16 01:25 To note I would back and examined patient and she is having some reduction in the amount of swelling and itching in the areas after taking the Zyrtec and the Pepcid. However as we are looking at it we spotted an area that was a possibility of being a stinger. I used a pair of forceps or tweezers and removed it and it was what appeared to be a stinger from an insect. Patient bled a little bit into the area when use a Band-Aid to cover it. Discharge - Discharge Clinical Impression: Cellulitis Allergic reaction Qualifiers: Encounter type: initial encounter Qualified Code(s): T78.40XA - Allergy, unspecified, initial encounter Condition: Stable Disposition: HOME, SELF-CARE Additional Instructions: Cellulitis You have an infection of your skin and underlying soft tissues called cellulitis. This is due to bacteria, which can enter through any break in the skin, or even through an irritated hair follicle. Untreated, cellulitis will usually worsen. Antibiotics are required. Usually, warm packs or warm soaks, and elevation of the infected area are recommended. You should start getting better within 24 to 36 hours. Most infections respond quickly to the right medication. Follow-up care is important, however, to check for abscess (boil) formation, unsuspected foreign body, or resistant infection. If you develop fever, chills, or if the area of infection is becoming rapidly more swollen or painful, call the doctor at once. Insect Sting You've been stung by an insect. The venom can cause pain, redness, and swelling. Right after the sting, we sometimes use adrenaline to reduce the reaction to the venom. This also stops any allergic reaction. You should apply cold compresses, rest and elevate the affected part, and take antihistamines. A more severe, itchy red swelling sometimes develops the next day. This is a local allergic reaction to the venom. This local allergy isn't dangerous. We treat it with cortisone-type medicine and antihistamines. Sometimes we use antibiotics if we're worried about infection. If you develop a fever, chills, a red streak, or swollen glands in the area of the bite, infection may be starting. Return at once. Insect stings from the bee and hornet family may cause a severe allergic reaction. Symptoms include hoarseness, shortness of breath, general redness of the skin, general itching, or lightheadedness. If any of these symptoms occur, you'll be treated with adrenalin and cortisone-like steroids. You should carry an "Anaphylaxis Kit" with you in the summer months so you can administer these medications to yourself before getting emergency medical care. Home and rest. Continue with the Zyrtec and the ranitidine as directed. He may resume all your other medications. Monitor the area and use cool compresses 3-4 times a day. Return to ER for any concerns or problems. Prescriptions: Cephalexin Monohydrate [Keflex 500 mg Capsule] 500 mg PO Q6H 5 Days #20 capsule Cetirizine HCl [Zyrtec 10 mg Tablet] 1 tab PO DAILY 15 Days #15 tablet Ranitidine HCl 150 mg PO BID 14 Days #28 tablet Forms: Elevated Blood Pressure Referrals: YON WILLETT MD [Primary Care Provider] - Follow up as needed
[2016-11-12 01:35] VITALS: BP 170/81
== END 2016-11-12 01:35 | disposition home or self-care (01) ==
LOC: ER 22:08
DX: L03.114 Cellulitis of left upper limb (principal); T78.40XA Allergy, unspecified, initial encounter; S50.362A Insect bite (nonvenomous) of left elbow, initial encounter; W57.XXXA Bitten or stung by nonvenomous insect and other nonvenomous arthropods, initial encounter; Z87.891 Personal history of nicotine dependence
CPT/HCPCS: 99281; A9270 ×2

== ENCOUNTER → 2016-12-05 | Outpatient (CLI) | payer MEDICARE, OTHER | LOC: OD 09:47 | PROVIDERS: ATTEND Family Medicine | DX: E11.9 Type 2 diabetes mellitus without complications (principal) | CPT/HCPCS: 36415; 83036 ==

== ENCOUNTER 2017-01-05 19:03 | Emergency (ER) | payer MEDICARE, OTHER ==
--- NOTE | 2017-01-05 21:04 | ER Document Report ---
ED General - General Chief Complaint: Vaginal Pain Stated Complaint: VAGINAL IRRITATION Time Seen by Provider: 01/05/17 20:57 Mode of Arrival: Ambulatory Information source: Patient Notes: This is a 76-year-old female with a history of diabetes status post antibiotics for 2 weeks, now presents with vaginal irritation and whitish discharge. Patient also states she has had right foot pain but does not really remember any trauma. TRAVEL OUTSIDE OF THE [place] IN LAST 30 DAYS: No - HPI Onset: Just prior to arrival Onset/Duration: Gradual Quality of pain: No pain Severity: None Pain Level: Denies Associated symptoms: denies: Chest pain, Fever, Shortness of breath Exacerbated by: Denies Relieved by: Denies Similar symptoms previously: No Recently seen / treated by doctor: Yes - Related Data Allergies/Adverse Reactions: diphenhydramine HCl [From Benadryl] Allergy (Severe, Verified 01/05/17 19:05) trouble breathing, redness of skin cortisone [Cortisone] Allergy (Unknown, Verified 01/05/17 19:05) oxcarbazepine [From Trileptal] Allergy (Verified 01/05/17 19:05) WEIGHT LOSS erythromycin base [Erythromycin Base] Adverse Reaction (Mild, Verified 01/05/17 19:05) upset stomach Sulfa (Sulfonamide Antibiotics) Adverse Reaction (Mild, Verified 01/05/17 19:05) itchy eyes IVP dye Allergy (Mild, Uncoded 01/05/17 19:05) splotches Past Medical History - General Information source: Patient - Social History Smoking Status: Never Smoker Cigarette use (# per day): No Chew tobacco use (# tins/day): No Frequency of alcohol use: None Drug Abuse: None Lives with: Alone Family History: Reviewed & Not Pertinent Patient has suicidal ideation: No Patient has homicidal ideation: No - Past Medical History Cardiac Medical History: Reports: Hx Hypercholesterolemia, Hx Hypertension - UP AND DOWN Denies: Hx Coronary Artery Disease - Neg cath 11/16, Hx Heart Attack - catherization Pulmonary Medical History: Reports: Hx Bronchitis Denies: Hx Asthma, Hx COPD, Hx Pneumonia, Hx Tuberculosis Neurological Medical History: Denies: Hx Cerebrovascular Accident, Hx Seizures Endocrine Medical History: Reports: Hx Diabetes Mellitus Type 2 Renal/ Medical History: Denies: Hx Peritoneal Dialysis GI Medical History: Reports: Hx Gastroesophageal Reflux Disease, Hx Hiatal Hernia, Hx Ulcer - years ago, Hx Colonoscopy, Hx Endoscopy. Denies: Hx Hepatitis Musculoskeltal Medical History: Reports Hx Arthritis Psychiatric Medical History: Reports: Hx Anxiety, Hx Bipolar Disorder, Hx Depression Infectious Medical History: Denies: Hx Hepatitis Past Surgical History: Reports: Hx Cardiac Catheterization - 11/2011, Hx Cholecystectomy, Hx Hysterectomy, Hx Orthopedic Surgery - cyst removed right wrist and right shoulder, Other - cyst removed from right shoulder and hand, 8 eye surgeries. Denies: Hx Mastectomy, Hx Open Heart Surgery, Hx Pacemaker - Immunizations Immunizations up to date: No Hx Diphtheria, Pertussis, Tetanus Vaccination: No - unk Hx Pneumococcal Vaccination: 11/06/11 Review of Systems - Review of Systems Constitutional: denies: Chills, Fever EENT: No symptoms reported Cardiovascular: No symptoms reported Respiratory: No symptoms reported Gastrointestinal: No symptoms reported Genitourinary: No symptoms reported Female Genitourinary: No symptoms reported Musculoskeletal: See HPI Skin: No symptoms reported Hematologic/Lymphatic: No symptoms reported Neurological/Psychological: No symptoms reported Physical Exam - Vital signs Vitals: Temp Pulse Resp BP Pulse Ox 98.6 F 92 18 192/75 H 97 01/05/17 19:21 01/05/17 19:21 01/05/17 19:21 01/05/17 19:21 01/05/17 19:21 Notes: Physical exam: GENERAL: This is a 76-year-old female who appear was well on exam, alert and oriented 3, no acute distress HEAD: Atraumatic, normocephalic. EYES: Pupils equal round and reactive to light, extraocular movements intact, sclera anicteric, conjunctiva are normal. ENT: TMs normal, nares patent, oropharynx clear without exudates. Moist mucous membranes. NECK: Normal range of motion, supple without obvious mass or JVD. LUNGS: Breath sounds clear to auscultation bilaterally and equal. No wheezes rales or rhonchi. HEART: Regular rate and rhythm without murmurs, rubs or gallops. ABDOMEN: Soft, normoactive bowel sounds. No tenderness to palpation. No guarding, no rebound. No masses appreciated. Vaginal exam: External genitalia with excoriation of the skin of the labia majora. She does have a whitish discharge in the vault. No masses, no tenderness. EXTREMITIES: Normal range of motion, no pitting or edema. No clubbing or cyanosis. NEUROLOGICAL: Cranial nerves II through XII grossly intact. Normal speech, moving all extremities. No obvious lesions of the right foot. PSYCH: Normal mood, normal affect. SKIN: Warm, Dry, normal turgor, no rashes or lesions noted. Course - Vital Signs Vital signs: Temp Pulse Resp BP Pulse Ox 98.6 F 92 18 192/75 H 97 01/05/17 19:21 01/05/17 19:21 01/05/17 19:21 01/05/17 19:21 01/05/17 19:21 - Diagnostic Test Radiology reviewed: Image reviewed, Reports reviewed - Right foot x-rays show no foreign body or bony injury Discharge - Discharge Clinical Impression: Vaginitis, Right foot pain, Hypertension Condition: Stable Disposition: HOME, SELF-CARE Additional Instructions: Recommendations: If you continue to have vaginal irritation, take the Diflucan tablet in 3 days. Rest, drink plenty of fluids As far as your blood pressure: Continue your medicines, check your blood pressure and if he continues to stay high, follow-up with your primary care doctor. As we discussed today, the x-rays of the right foot looked good. Follow-up with your primary care doctor if you have continued pain in that foot. Prescriptions: Fluconazole [Diflucan] 150 mg PO ONCE PRN #1 tablet PRN Reason: Referrals: YON WILLETT MD [Primary Care Provider] - Follow up as needed
--- NOTE | 2017-01-05 21:42 | RADIOLOGY REPORT (SQ) ---
EXAM DESCRIPTION: FOOT RIGHT COMPLETE COMPLETED DATE/TIME: 01/05/2017 9:34 pm REASON FOR STUDY: diabetic-right lateral foot pain COMPARISON: None. NUMBER OF VIEWS: Three views. TECHNIQUE: AP, lateral and oblique radiographic images acquired of the right foot. LIMITATIONS: None. FINDINGS: MINERALIZATION: Normal. BONES: No acute fracture or dislocation. No worrisome bone lesions. Small plantar and dorsal calcan eal spurs. JOINTS: No effusions. SOFT TISSUES: No soft tissue swelling. No foreign body. OTHER: No other significant finding. IMPRESSION: NEGATIVE STUDY OF THE RIGHT FOOT. NO RADIOGRAPHIC EVIDENCE OF ACUTE INJURY. TECHNICAL DOCUMENTATION: JOB ID: [id number] [employer]- All Rights Reserved
[2017-01-05 21:56] LABS: APPEARANCE,URINE CLEAR; BILIRUBIN,URINE NEGATIVE (NEGATIVE); GLUCOSE, URINE NEGATIVE (NEGATIVE); KETONES,URINE NEGATIVE (NEGATIVE); LEUKOCYTE ESTERASE,URINE NEGATIVE (NEGATIVE); NITRITE,URINE NEGATIVE (NEGATIVE); PROTEIN,URINE NEGATIVE (NEGATIVE); URINE SPECIFIC GRAVITY 1.011; UROBILINOGEN,URINE NEGATIVE mg/dL (<2.0)
[2017-01-05 22:17] LABS: RBC,URINE 0-1 /HPF; WBC,URINE 0-1 /HPF
[2017-01-05] MEDS ORDERED: FLUCONAZOLE 100 MG TABLET PO ONE (22:26)
[2017-01-05 23:42] VITALS: BP 164/74
== END 2017-01-05 23:42 | disposition home or self-care (01) ==
LOC: ER 19:03
DX: N76.0 Acute vaginitis (principal); R10.2 Pelvic and perineal pain; I10 Essential (primary) hypertension; E78.00 Pure hypercholesterolemia, unspecified; E11.9 Type 2 diabetes mellitus without complications; Z88.2 Allergy status to sulfonamides; Z88.3 Allergy status to other anti-infective agents; Z90.49 Acquired absence of other specified parts of digestive tract; Z90.710 Acquired absence of both cervix and uterus
CPT/HCPCS: 99284; 87210; 81001; 73630; A9270

== ENCOUNTER → 2017-02-23 | Outpatient (CLI) | payer MEDICARE, OTHER ==
--- NOTE | 2017-02-23 13:52 | RADIOLOGY REPORT (SQ) ---
EXAM DESCRIPTION: CHEST PA/LATERAL COMPLETED DATE/TIME: 02/23/2017 1:40 pm REASON FOR STUDY: COUGH, LT RIB CAGE PAIN, ACUTE BRONCHITIS COMPARISON: June 2016 EXAM PARAMETERS: NUMBER OF VIEWS: two views TECHNIQUE: Digital Frontal and Lateral radiographic views of the chest acquired. RADIATION DOSE: NA LIMITATIONS: none FINDINGS: LUNGS AND PLEURA: No opacities, masses or pneumothorax. No pleural effusion. MEDIASTINUM AND HILAR STRUCTURES: No masses or contour abnormalities. HEART AND VASCULAR STRUCTURES: Cardiac silhouette is enlarged and unchanged in configuration. BONES: No acute findings. HARDWARE: None in the chest. OTHER: No other significant finding. IMPRESSION: No significant interval change. No acute changes. Cardiomegaly. Other findings as not ed above TECHNICAL DOCUMENTATION: JOB ID: [id number] [employer]- All Rights Reserved
== END ==
LOC: OD 13:26
PROVIDERS: ATTEND Family Medicine
DX: J20.9 Acute bronchitis, unspecified (principal); R05 Cough; R07.81 Pleurodynia; R49.0 Dysphonia
CPT/HCPCS: 71046

== ENCOUNTER 2017-04-22 08:02 | Emergency (ER) | payer MEDICARE, OTHER ==
[2017-04-22] MEDS ORDERED: ASPIRIN 81 MG TABLET, CHEWABLE PO ONE (08:13)
--- NOTE | 2017-04-22 08:51 | EKG REPORT ---
SEVERITY:- ABNORMAL ECG - SINUS RHYTHM LEFT ATRIAL ABNORMALITY LEFT BUNDLE BRANCH BLOCK : Confirmed by: Jose Bell MD 22-Apr-2017 08:50:58
--- NOTE | 2017-04-22 09:12 | RADIOLOGY REPORT (SQ) ---
EXAM DESCRIPTION: CHEST SINGLE VIEW COMPLETED DATE/TIME: 04/22/2017 8:42 am REASON FOR STUDY: chest pain COMPARISON: Chest films 05/10/2015, 06/08/2016, 02/23/2017 EXAM PARAMETERS: NUMBER OF VIEWS: One view. TECHNIQUE: Single frontal radiographic view of the chest acquired. RADIATION DOSE: NA LIMITATIONS: None. FINDINGS: LUNGS AND PLEURA: No opacities, masses or pneumothorax. No pleural effusion. MEDIASTINUM AND HILAR STRUCTURES: No masses. Contour normal. HEART AND VASCULAR STRUCTURES: Stable marked cardiomegaly BONES: No acute findings. HARDWARE: None in the chest. OTHER: No other significant finding. IMPRESSION: Stable cardiomegaly TECHNICAL DOCUMENTATION: JOB ID: [id number] [employer]- All Rights Reserved Reading location - IP/workstation name: [email or web address]
[2017-04-22 09:15] LABS: ABSOLUTE BASOPHILS # (AUTO) 0.1 10^3/uL (0.0-0.2); ABSOLUTE EOSINOPHILS # (AUTO) 0.3 10^3/uL (0.0-0.6); ABSOLUTE LYMPHOCYTES (AUTO) 1.5 10^3/uL (0.5-4.7); ABSOLUTE MONOCYTES (AUTO) 0.5 10^3/uL (0.1-1.4); ABSOLUTE NEUT (AUTO) 3.7 10^3/uL (1.7-8.2); BASOPHILS % (AUTO) 1.2 % (0-2); EOSINOPHILS % (AUTO) 4.5 % (0-6); HEMATOCRIT 45.1 % (36.0-47.0); HEMOGLOBIN 15.6 g/dL (12.0-15.5); LYMPHOCYTES % (AUTO) 24.7 % (13-45); MEAN CORPUSCULAR HEMOGLOBIN 29.3 pg (27.0-33.4); MEAN CORPUSCULAR HGB CONC 34.6 g/dL (32.0-36.0); MEAN CORPUSCULAR VOLUME 85 fl (80-97); MONOCYTES % (AUTO) 8.8 % (3-13); PLATELET COUNT 208 10^3/uL (150-450); RED BLOOD COUNT 5.32 10^6/uL (3.72-5.28); RED CELL DISTRIBUTION WIDTH 13.1 % (11.5-14.0); SEGMENTED NEUTROPHILS % (AUTO) 60.8 % (42-78); TOTAL CELLS COUNTED % (AUTO) 100 %; WHITE BLOOD COUNT 6.1 10^3/uL (4.0-10.5)
--- NOTE | 2017-04-22 09:19 | ER Document Report ---
ED Cardiac - General Chief Complaint: Chest Pain Stated Complaint: CHEST PAIN Time Seen by Provider: 04/22/17 08:56 Notes: Patient is a 77-year-old female, past medical history hypertension, chronic back pain, presents with 3 days of bilateral lower anterior and posterior chest squeezing that is worse with twisting of her torso. She noticed mild left shoulder pain and her usual back pain that is worse with movement. She has an appointment with Orthopedics in 3 days to discuss her back pain. Patient denies shortness of breath, nausea, vomiting, increased leg swelling, numbness, tingling, cough or fevers. TRAVEL OUTSIDE OF THE [place] IN LAST 30 DAYS: No - Related Data Allergies/Adverse Reactions: diphenhydramine HCl [From Benadryl] Allergy (Severe, Verified 04/22/17 08:05) trouble breathing, redness of skin cortisone [Cortisone] Allergy (Unknown, Verified 04/22/17 08:05) oxcarbazepine [From Trileptal] Allergy (Verified 04/22/17 08:05) WEIGHT LOSS erythromycin base [Erythromycin Base] Adverse Reaction (Mild, Verified 04/22/17 08:05) upset stomach Sulfa (Sulfonamide Antibiotics) Adverse Reaction (Mild, Verified 04/22/17 08:05) itchy eyes IVP dye Allergy (Mild, Uncoded 04/22/17 08:05) splotches Past Medical History - General Information source: Patient - Social History Smoking Status: Never Smoker Chew tobacco use (# tins/day): No Frequency of alcohol use: Occasional Drug Abuse: None Family History: Reviewed & Not Pertinent Patient has suicidal ideation: No Patient has homicidal ideation: No - Past Medical History Cardiac Medical History: Reports: Hx Hypercholesterolemia, Hx Hypertension - UP AND DOWN Denies: Hx Coronary Artery Disease - Neg cath 11/16, Hx Heart Attack - catherization Pulmonary Medical History: Reports: Hx Bronchitis Denies: Hx Asthma, Hx COPD, Hx Pneumonia, Hx Tuberculosis Neurological Medical History: Denies: Hx Cerebrovascular Accident, Hx Seizures Endocrine Medical History: Reports: Hx Diabetes Mellitus Type 2 Renal/ Medical History: Denies: Hx Peritoneal Dialysis GI Medical History: Reports: Hx Gastroesophageal Reflux Disease, Hx Hiatal Hernia, Hx Ulcer - years ago, Hx Colonoscopy, Hx Endoscopy. Denies: Hx Hepatitis Musculoskeltal Medical History: Reports Hx Arthritis Psychiatric Medical History: Reports: Hx Anxiety, Hx Bipolar Disorder, Hx Depression Infectious Medical History: Denies: Hx Hepatitis Past Surgical History: Reports: Hx Cardiac Catheterization - 11/2011, Hx Cholecystectomy, Hx Hysterectomy, Hx Orthopedic Surgery - cyst removed right wrist and right shoulder, Other - cyst removed from right shoulder and hand, 8 eye surgeries. Denies: Hx Mastectomy, Hx Open Heart Surgery, Hx Pacemaker - Immunizations Immunizations up to date: No Hx Diphtheria, Pertussis, Tetanus Vaccination: No - unk Hx Pneumococcal Vaccination: 11/06/11 Review of Systems - Review of Systems Notes: REVIEW OF SYSTEMS: CONSTITUTIONAL: -fevers, -chills EENT: -eye pain, -difficulty swallowing, -nasal congestion CARDIOVASCULAR: +chest pain, -syncope. RESPIRATORY: -cough, -SOB GASTROINTESTINAL: -abdominal pain, -nausea, -vomiting, -diarrhea GENITOURINARY: -dysuria, -hematuria MUSCULOSKELETAL: +back pain, -neck pain SKIN: -rash or skin lesions. HEMATOLOGIC: -easy bruising or bleeding. LYMPHATIC: -swollen, enlarged glands. NEUROLOGICAL: -altered mental status or loss of consciousness, -headache, - neurologic symptoms PSYCHIATRIC: -anxiety, -depression. ALL OTHER SYSTEMS REVIEWED AND NEGATIVE. Physical Exam - Vital signs Vitals: Temp Pulse Resp BP Pulse Ox 98.6 F 100 16 189/75 H 97 04/22/17 08:11 04/22/17 08:11 04/22/17 08:11 04/22/17 08:11 04/22/17 08:11 - Notes Notes: PHYSICAL EXAMINATION: GENERAL: Well-appearing, well-nourished and in no acute distress. HEAD: Atraumatic, normocephalic. EYES: Pupils equal round and reactive to light, extraocular movements intact, sclera anicteric, conjunctiva are normal. ENT: nares patent, oropharynx clear without exudates. Moist mucous membranes. NECK: Normal range of motion, supple without lymphadenopathy LUNGS: Breath sounds clear to auscultation bilaterally and equal. No wheezes rales or rhonchi. HEART: Regular rhythm. BACK: No midline tenderness. B/L lower paraspinal tenderness and left upper back tenderness. ABDOMEN: Soft, nontender, normoactive bowel sounds. No guarding, no rebound. No masses appreciated. EXTREMITIES: Normal range of motion, no pitting or edema. No cyanosis. NEUROLOGICAL: Cranial nerves grossly intact. Normal speech, normal gait. Normal sensory and motor exams. PSYCH: Normal mood, normal affect. SKIN: Warm, Dry, normal turgor, no rashes or lesions noted. Course - Re-evaluation Re-evalutation: Patient with no red flag signs for low back pain at this time. Her EKG does not show any ischemic changes and 2 troponins are negative. Chest x-ray also does not show any acute abnormalities. She appears well and after Toradol, her symptoms have completely resolved. Her symptoms are most consistent with chest wall strain, but told her to follow-up with her PMD and [facility] for further evaluation and treatment due to her age and risk factors. Given very strict return precautions and she understands. - Vital Signs Vital signs: Temp Pulse Resp BP Pulse Ox 98.6 F 100 17 189/75 H 95 04/22/17 08:11 04/22/17 08:11 04/22/17 08:39 04/22/17 08:11 04/22/17 08:39 - Laboratory Result Diagrams: 04/22/17 08:55 04/22/17 08:55 Laboratory results interpreted by me: 04/22/17 04/22/17 08:55 08:55 RBC 5.32 H Hgb 15.6 H Glucose 172 H - Diagnostic Test Radiology reviewed: Image reviewed, Reports reviewed Radiology results interpreted by me: CXR: stable cardiomegaly - EKG Interpretation by Me EKG shows normal: [place], QRS Complexes, ST-T Waves Rate: Normal Rhythm: NSR [place]/QRS: LBBB When compared to previous EKG there are: No significant change Additional EKG results interpreted by me: Old LBBB. No Scarbossa criteria for STEMI. Discharge - Discharge Clinical Impression: Chest pain Qualifiers: Chest pain type: unspecified Qualified Code(s): R07.9 - Chest pain, unspecified Back pain Qualifiers: Back pain location: back pain in unspecified location Chronicity: chronic Back pain laterality: bilateral Qualified Code(s): M54.9 - Dorsalgia, unspecified Condition: Stable Disposition: HOME, SELF-CARE Additional Instructions: CHEST PAIN OF UNCLEAR CAUSE: The exact cause of your chest pain isn't clear. Fortunately, there is no evidence of a dangerous medical condition. Further testing may be required to find the source of the pain. Most often, we find that this pain is coming from the chest wall -- the muscles or rib joints in the chest. But chest pain can come from the lung and lung lining, the esophagus, the heart valves or heart lining, and even the stomach or gallbladder. Rest. Eat lightly until the pain is gone. We may prescribe medicine for pain and inflammation. You should call the physician immediately if the pain radiates to the shoulder, jaw or arms; if you start to run a fever or develop a cough; or if you develop shortness of breath, or other new or alarming symptoms. NORMAL EXAM AND WORKUP: At this time, your examination and workup show no significant abnormality. No significant abnormal physical findings were noted. All laboratory, EKG, and imaging (x-ray, CT scans, ultrasound) studies that were ordered show no significant abnormality. Although your examination and all studies that were ordered showed no significant abnormal finding, there are no examinations and no studies that are 100% accurate. There is always the possibility that some abnormality could exist and not be detected with physical examination or within the limits and capabilities of laboratory and other studies. You should return or follow up as you were instructed on your visit today for further evaluation if your symptoms do not resolve. CHEST WALL PAIN: Your chest pain may be coming from the chest wall. This is often caused by straining the muscles or joints in the chest during physical activity, direct trauma, coughing, or vigorous vomiting. Persons with arthritis are especially prone to this type of pain, due to inflammation of the cartilage joints near the breast bone. Occasionally, no cause can be found. Rest from strenuous physical activity. This kind of chest pain is usually made worse by movement of the chest. Depending on the symptoms, we may prescribe medicine for pain, muscle relaxation, and antiinflammatory effects. If the pain is new, and seems to be due to muscle strain, cold packs can help. Otherwise, apply gentle warmth to the painful area for 15 minutes every hour or two. You should call contact the doctor immediately if things change. Further evaluation is needed if you develop a fever or cough, if the nature of the pain changes, or if you become short of breath. ANGINA EPISODE: Your physician has diagnosed the pain you experienced as an episode of angina. Angina occurs when a portion of the heart muscle temporarily lacks oxygen. It does not cause any permanent heart damage, but serves as a warning. Hospitalization is not necessary now. Evaluation of your cardiac condition , and medical therapy for angina will be necessary. It's important you be sure to keep all appointments and take medication exactly as prescribed. Angina is usually treated with a type of "nitrate" medication. This is available as ointment, pills, or sublingual (under the tongue) tablets. Depending on your clinical situation, other medications may be added to help control angina. These may include beta blockers or calcium blockers. If episodes of angina are occurring with increased frequency, or if chest pain lasts longer than 15 minutes or does not respond to nitroglycerin, you must seek emergency medical care immediately. ASPIRIN: Aspirin has been shown to have a beneficial effect on blood circulation by reducing the clotting effect of platelets in the blood. These beneficial effects can be achieved by taking just a single baby (81 mg) aspirin a day. It is recommended that any person over the age of forty take a single baby aspirin every day for heart and brain circulation, unless you are allergic to aspirin or have some significant bleeding disorder. It is strongly recommended that people who have proven cardiac or blood circulation disturbances should take a baby aspirin every day. FOLLOW-UP CARE: If you have been referred to a physician for follow-up care, call the physician s office for an appointment as you were instructed or within the next two days. If you experience worsening or a significant change in your symptoms, notify the physician immediately or return to the Emergency Department at any time for re-evaluation. Forms: Elevated Blood Pressure Referrals: YON WILLETT MD [Primary Care Provider] - Follow up as needed
[2017-04-22 09:27] LABS: ALANINE AMINOTRANSFERASE 36 U/L (9-52); ALBUMIN 4.4 g/dL (3.5-5.0); ALKALINE PHOSPHATASE 85 U/L (38-126); ANION GAP 12 (5-19); ASPARTATE AMINO TRANSFERASE 24 U/L (14-36); BILIRUBIN,DIRECT 0.3 mg/dL (0.0-0.4); BILIRUBIN,TOTAL 0.6 mg/dL (0.2-1.3); BLOOD UREA NITROGEN 17 mg/dL (7-20); CALCIUM 9.6 mg/dL (8.4-10.2); CARBON DIOXIDE 28 mmol/L (22-30); CHLORIDE 101 mmol/L (98-107); CREATINE KINASE 122 U/L (30-135); GLUCOSE 172 mg/dL (75-110); POTASSIUM 4.2 mmol/L (3.6-5.0); SODIUM 140.5 mmol/L (137-145); TOTAL PROTEIN 7.4 g/dL (6.3-8.2)
[2017-04-22 12:04] VITALS: BP 160/83
== END 2017-04-22 12:09 | disposition home or self-care (01) ==
LOC: ER 08:02
DX: R07.9 Chest pain, unspecified (principal); M54.9 Dorsalgia, unspecified; G89.29 Other chronic pain; I10 Essential (primary) hypertension; I44.7 Left bundle-branch block, unspecified; M25.512 Pain in left shoulder; Z88.8 Allergy status to other drugs, medicaments and biological substances; Z91.041 Radiographic dye allergy status
CPT/HCPCS: 93005; 99285; 36415; 82550; 85025; 80053; 84484; 71045; 93010; A9270

== ENCOUNTER → 2017-07-11 | Outpatient (CLI) | payer MEDICARE, OTHER ==
[2017-07-11 11:09] LABS: ANION GAP 8 (5-19); BLOOD UREA NITROGEN 14 mg/dL (7-20); CALCIUM 9.5 mg/dL (8.4-10.2); CARBON DIOXIDE 31 mmol/L (22-30); CHLORIDE 102 mmol/L (98-107); CHOLESTEROL 208.33 mg/dL (0-200); GLUCOSE 152 mg/dL (75-110); POTASSIUM 4.7 mmol/L (3.6-5.0); SODIUM 141.2 mmol/L (137-145); TRIGLYCERIDES 173 mg/dL (<150)
[2017-07-11 11:20] LABS: DIRECT LDL 130 mg/dL (<100)
[2017-07-11 11:21] LABS: VLDL CHOLESTEROL 34.6 mg/dL (10-31)
== END ==
LOC: OD 09:31
PROVIDERS: ATTEND Family Medicine
DX: E11.9 Type 2 diabetes mellitus without complications (principal); E78.5 Hyperlipidemia, unspecified; I10 Essential (primary) hypertension; Z79.899 Other long term (current) drug therapy
CPT/HCPCS: 36415; 80048; 80061; 83036; 84443

== ENCOUNTER 2017-09-10 12:47 | Emergency (ER) | payer MEDICARE, OTHER ==
--- NOTE | 2017-09-10 14:11 | ER Document Report ---
HPI - HPI Patient complains to provider of: Fell Onset: Just prior to arrival Pain Level: 4 Context: 77-year-old female was looking backwards and tripped over a cement block in parking lot injuring her right hand and left elbow. Tetanus is not current. He already has an orthopedic doctor here in town. She did not hit her head there was no dizziness or vertigo. She has no headache. No neck pain. Associated Symptoms: None Exacerbated by: Movement Relieved by: Denies Similar symptoms previously: No Recently seen / treated by doctor: No - ROS ROS below otherwise negative: Yes Systems Reviewed and Negative: Yes All other systems reviewed and negative - REPRODUCTIVE Reproductive: DENIES: : Past Medical History - General Information source: Patient - Social History Smoking Status: Never Smoker Frequency of alcohol use: None Drug Abuse: None Lives with: Family Family History: Reviewed & Not Pertinent - Past Medical History Cardiac Medical History: Reports: Hx Hypercholesterolemia, Hx Hypertension - UP AND DOWN Pulmonary Medical History: Reports: Hx Bronchitis Endocrine Medical History: Reports: Hx Diabetes Mellitus Type 2 Renal/ Medical History: Denies: Hx Peritoneal Dialysis GI Medical History: Reports: Hx Gastroesophageal Reflux Disease, Hx Hiatal Hernia, Hx Ulcer - years ago, Hx Colonoscopy, Hx Endoscopy Musculoskeletal Medical History: Reports Hx Arthritis Psychiatric Medical History: Reports: Hx Anxiety, Hx Bipolar Disorder, Hx Depression Past Surgical History: Reports: Hx Cardiac Catheterization - 11/2011, Hx Cholecystectomy, Hx Hysterectomy, Hx Orthopedic Surgery - cyst removed right wrist and right shoulder, Other - cyst removed from right shoulder and hand, 8 eye surgeries - Immunizations Immunizations up to date: No Hx Diphtheria, Pertussis, Tetanus Vaccination: No - unk Hx Pneumococcal Vaccination: 11/06/11 Vertical Provider Document - CONSTITUTIONAL Agree With Documented VS: Yes Exam Limitations: No Limitations - INFECTION CONTROL TRAVEL OUTSIDE OF THE [place] IN LAST 30 DAYS: No - NECK Neck: Supple - Nontender - MUSCULOSKELETAL/EXTREMETIES Musculoskeletal/Extremeties: MAEW, FROM, Tender - Especially the fourth right metacarpal, Edema, Eccymosis Notes: Mild tender to the left olecranon abras . Range of motion of the elbow. No rotational deviation of the right hand - NEURO Level of Consciousness: Awake Motor/Sensory: No Motor Deficit, No Sensory Deficit - DERM Integumentary: No Rash Course - Re-evaluation Re-evalutation: 09/10/17 Spiral fracture of the fourth right metacarpal. The elbow x-ray is negative. The elbow in place bacitracin and a Band-Aid on the elbow. - Vital Signs Vital signs: Temp Pulse Resp BP Pulse Ox 98.5 F 90 18 153/75 H 93 09/10/17 13:06 09/10/17 13:06 09/10/17 13:06 09/10/17 13:06 09/10/17 13:06 Procedures - Immobilization Right Arm Time completed: 15:50 Pre-Proc Neuro Vasc Exam: Normal Immobilizer type: Ulnar Performed by: PCT Post-Proc Neuro Vasc Exam: Normal Alignment checked and good: Yes Notes: 09/10/17 15:55 sling Discharge - Discharge Clinical Impression: Spiral fx of the rt fifth MC, Left elbow contusion, Left elbow abrasion Condition: Good Disposition: HOME, SELF-CARE Instructions: Abrasions ([facility]), Fractured Metacarpal ([facility]), Splint Precautions ( [facility]), Temporary Splint ([facility]), Tetanus Immunization Given ([facility]) Additional Instructions: Keep the splint on and elevate your fracture Tylenol for pain pain medication see your orthopedic doctor this week for this spiral metacarpel fracture Prescriptions: Hydrocodone Bit/Acetaminophen [Hydrocodon-Acetaminophen 5-325] 1 each PO Q4HP PRN #15 tablet PRN Reason: Referrals: YON WILLETT MD [Primary Care Provider] - Follow up as needed
[2017-09-10] MEDS ORDERED: DIPH/PERTUSS(ACELL)/TETANUS VAC/PF 0.5 ML SYR (>=10YO) IM ONE (14:22)
--- NOTE | 2017-09-10 15:34 | RADIOLOGY REPORT (SQ) ---
EXAM DESCRIPTION: ELBOW LEFT OVER 2 VIEWS COMPLETED DATE/TIME: 09/10/2017 3:10 pm REASON FOR STUDY: fall left elbow injury COMPARISON: None. NUMBER OF VIEWS: Four views. TECHNIQUE: AP, lateral, and both oblique radiographic images acquired of the left elbow. LIMITATIONS: None. FINDINGS: MINERALIZATION: Normal. BONES: No acute fracture or dislocation. No worrisome bone lesions. JOINT: No effusion. SOFT TISSUES: No soft tissue swelling. No foreign body. OTHER: No other significant finding. IMPRESSION: 1 No acute osseous findings. TECHNICAL DOCUMENTATION: JOB ID: [id number] [employer]- All Rights Reserved Reading location - IP/workstation name: [email or web address]
--- NOTE | 2017-09-10 15:43 | RADIOLOGY REPORT (SQ) ---
EXAM DESCRIPTION: HAND RIGHT 3 VIEWS COMPLETED DATE/TIME: 09/10/2017 3:10 pm REASON FOR STUDY: fall COMPARISON: None. EXAM PARAMETERS: NUMBER OF VIEWS: Three views. TECHNIQUE: AP, lateral and oblique radiographic images acquired of the right hand. LIMITATIONS: None. FINDINGS: MINERALIZATION: Normal. BONES: Slightly displace of oblique fracture mid shaft fifth metacarpal bone. Soft tissue swelling. JOINTS: Moderate to moderate severe first carpometacarpal and scaphoid trapezial joint space narrowi ng and mild subchondral sclerosis. Subchondral cystic changes and the ulnar styloid process. SOFT TISSUES: No soft tissue swelling. No foreign body. OTHER: No other significant finding. IMPRESSION: 1 Slightly displaced fracture, fifth metacarpal bone. Soft tissue swelling. 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 COMMENT: 1. The results of this examination were discussed with the emergency department provider diallo green 09/10/2017 at 15:31 hours. TECHNICAL DOCUMENTATION: JOB ID: [id number] [employer]- All Rights Reserved Reading location - IP/workstation name: [email or web address]
[2017-09-10 16:01] VITALS: BP 150/85
== END 2017-09-10 16:00 | disposition home or self-care (01) ==
LOC: ER 12:47
PROC: 2W3CX1Z Immobilization of Right Lower Arm using Splint (ICD-10-PCS; principal; 2017-09-10)
DX: S62.326A Displaced fracture of shaft of fifth metacarpal bone, right hand, initial encounter for closed fracture (principal); S50.02XA Contusion of left elbow, initial encounter; W01.0XXA Fall on same level from slipping, tripping and stumbling without subsequent striking against object, initial encounter; Y92.481 Parking lot as the place of occurrence of the external cause; E78.00 Pure hypercholesterolemia, unspecified; I10 Essential (primary) hypertension; E11.9 Type 2 diabetes mellitus without complications; Z90.710 Acquired absence of both cervix and uterus; Z90.49 Acquired absence of other specified parts of digestive tract
CPT/HCPCS: 90471; 90715; 99284

== ENCOUNTER → 2017-09-27 | Outpatient (CLI) | payer MEDICARE, OTHER ==
--- NOTE | 2017-09-27 15:52 | RADIOLOGY REPORT (SQ) ---
EXAM DESCRIPTION: KNEE RIGHT 4 VIEWS COMPLETED DATE/TIME: 09/27/2017 3:37 pm REASON FOR STUDY: FELL 09/10/17 AND LANDED ON BOTH KNEES AND ELBOWS COMPARISON: None. NUMBER OF VIEWS: Four views. TECHNIQUE: AP, lateral, and both oblique radiographic images acquired of the right knee. LIMITATIONS: None. FINDINGS: MINERALIZATION: Small bone island distal femur. BONES: No acute fracture or dislocation. No worrisome bone lesions. JOINT: No effusion. SOFT TISSUES: No soft tissue swelling. No radio-opaque foreign body. OTHER: No other significant finding. IMPRESSION: NEGATIVE STUDY OF THE RIGHT KNEE. NO RADIOGRAPHIC EVIDENCE OF ACUTE INJURY. TECHNICAL DOCUMENTATION: JOB ID: [id number] [employer]- All Rights Reserved Reading location - IP/workstation name: [email or web address]
--- NOTE | 2017-09-27 15:52 | RADIOLOGY REPORT (SQ) ---
EXAM DESCRIPTION: KNEE LEFT 4 VIEWS COMPLETED DATE/TIME: 09/27/2017 3:37 pm REASON FOR STUDY: FELL 09/10/17 AND LANDED ON BOTH KNEES AND ELBOWS COMPARISON: None. NUMBER OF VIEWS: Four views. TECHNIQUE: AP, lateral, and both oblique radiographic images acquired of the left knee. LIMITATIONS: None. FINDINGS: MINERALIZATION: Normal. BONES: No acute fracture or dislocation. No worrisome bone lesions. JOINT: No effusion. SOFT TISSUES: No soft tissue swelling. No radio-opaque foreign body. OTHER: No other significant finding. IMPRESSION: NEGATIVE STUDY OF THE LEFT KNEE. NO RADIOGRAPHIC EVIDENCE OF ACUTE INJURY. TECHNICAL DOCUMENTATION: JOB ID: [id number] [employer]- All Rights Reserved Reading location - IP/workstation name: [email or web address]
--- NOTE | 2017-09-27 16:13 | RADIOLOGY REPORT (SQ) ---
EXAM DESCRIPTION: LUMBAR SPINE COMPLETE COMPLETED DATE/TIME: 09/27/2017 3:37 pm REASON FOR STUDY: FELL 09/10/17 AND LANDED ON BOTH KNEES AND ELBOWS COMPARISON: 03/16/2012 NUMBER OF VIEWS: Five views including obliques. TECHNIQUE: AP, lateral, oblique, and sacral radiographic images acquired of the lumbar spine. LIMITATIONS: None. FINDINGS: MINERALIZATION: Normal. SEGMENTATION: Normal. No transitional anatomy. ALIGNMENT: Mild convex right scoliosis. VERTEBRAE: Maintained height. No fracture or worrisome bone lesion. DISCS: Multilevel disc space narrowing with osteophytes. POSTERIOR ELEMENTS: Pedicles and facets are intact. No pars defect or posterior arch defects. Facet arthropathy is present. HARDWARE: None in the spine. PARASPINAL SOFT TISSUES: Normal. PELVIS: Intact as visualized. No fractures or worrisome bone lesions. SI joints intact. OTHER: No other significant finding. IMPRESSION: SPONDYLOSIS WITHOUT BONE LESION OR FRACTURE. TECHNICAL DOCUMENTATION: JOB ID: [id number] [employer]- All Rights Reserved Reading location - IP/workstation name: [email or web address]
== END ==
LOC: OD 15:01
PROVIDERS: ATTEND Family Medicine
DX: M54.5 Low back pain (principal); M25.561 Pain in right knee; M25.562 Pain in left knee; M47.896 Other spondylosis, lumbar region; Z91.81 History of falling
CPT/HCPCS: 72110

== ENCOUNTER 2018-01-21 03:05 | Emergency (ER) | payer MEDICARE ==
--- NOTE | 2018-01-21 04:06 | ER Document Report ---
Addendum entered and electronically signed by MORGAN MUKHERJEE FNP 01/21/18 06:54: Course - Vital Signs Vital signs: Temp Pulse Resp BP Pulse Ox 98.1 F 57 L 16 119/48 L 96 01/21/18 05:57 01/21/18 04:05 01/21/18 03:09 01/21/18 05:02 01/21/18 05:02 - Laboratory Result Diagrams: 01/21/18 04:12 01/21/18 04:12 Laboratory results interpreted by me: 01/21/18 01/21/18 01/21/18 04:12 04:12 04:35 Eosinophils % 7.8 H Glucose 198 H Urine Glucose (UA) 50 H - EKG Interpretation by Me Additional EKG results interpreted by me: 01/21/18 04:23 Sinus bradycardia with a left bundle branch block. Rate 55. MT 144; QRS 150; QT 44; QTC 463. Premature atrial contraction noted. Original Note: ED General - General Chief Complaint: Dizziness Stated Complaint: DIZZY,CONGESTED Time Seen by Provider: 01/21/18 03:35 Mode of Arrival: Ambulatory Information source: Patient Notes: Patient is a 77-year-old female who presents to the emergency department with a chief complaint of dizziness and congestion. She states that she has had this for the past week. She saw her primary care doctor on Sunday, and states that he did not give her any medication for her symptoms. She describes her dizziness as a more "falling asleep" type of dizziness. She states her runny nose started yesterday. And now she has an associated cough. TRAVEL OUTSIDE OF THE [place] IN LAST 30 DAYS: No - Related Data Allergies/Adverse Reactions: diphenhydramine HCl [From Benadryl] Allergy (Severe, Verified 09/10/17 12:48) trouble breathing, redness of skin cortisone [Cortisone] Allergy (Unknown, Verified 09/10/17 12:48) oxcarbazepine [From Trileptal] Allergy (Verified 09/10/17 12:48) WEIGHT LOSS erythromycin base [Erythromycin Base] Adverse Reaction (Mild, Verified 09/10/17 12:48) upset stomach Sulfa (Sulfonamide Antibiotics) Adverse Reaction (Mild, Verified 09/10/17 12:48) itchy eyes IVP dye Allergy (Mild, Uncoded 04/22/17 08:05) splotches Past Medical History - General Information source: Patient - Social History Smoking Status: Never Smoker Frequency of alcohol use: Rare Drug Abuse: None Family History: Reviewed & Not Pertinent - Past Medical History Cardiac Medical History: Reports: Hx Hypercholesterolemia, Hx Hypertension - UP AND DOWN Denies: Hx Coronary Artery Disease - Neg cath 11/16, Hx Heart Attack - catherization Pulmonary Medical History: Reports: Hx Bronchitis Denies: Hx Asthma, Hx COPD, Hx Pneumonia, Hx Tuberculosis Neurological Medical History: Denies: Hx Cerebrovascular Accident, Hx Seizures Endocrine Medical History: Reports: Hx Diabetes Mellitus Type 2 Renal/ Medical History: Denies: Hx Peritoneal Dialysis GI Medical History: Reports: Hx Gastroesophageal Reflux Disease, Hx Hiatal Hernia, Hx Ulcer - years ago, Hx Colonoscopy, Hx Endoscopy. Denies: Hx Hepatitis Musculoskeletal Medical History: Reports Hx Arthritis Psychiatric Medical History: Reports: Hx Anxiety, Hx Bipolar Disorder, Hx Depression Infectious Medical History: Denies: Hx Hepatitis Past Surgical History: Reports: Hx Cardiac Catheterization - 11/2011, Hx Cholecystectomy, Hx Hysterectomy, Hx Orthopedic Surgery - cyst removed right wrist and right shoulder, Other - cyst removed from right shoulder and hand, 8 eye surgeries. Denies: Hx Mastectomy, Hx Open Heart Surgery, Hx Pacemaker - Immunizations Immunizations up to date: No Hx Diphtheria, Pertussis, Tetanus Vaccination: No - unk Hx Pneumococcal Vaccination: 11/06/11 Review of Systems - Review of Systems Notes: REVIEW OF SYSTEMS: CONSTITUTIONAL : Denies recent illness. Denies recent unintentional weight loss. Denies fever, chills, or sweats. EENT: See HPI CARDIOVASCULAR: Denies chest pain. RESPIRATORY: See HPI GASTROINTESTINAL: Denies nausea, vomiting, and diarrhea. Denies abdominal pain. Denies constipation. GENITOURINARY: Denies difficulty urinating, burning, blood in urine, urgency or frequency. MUSCULOSKELETAL: Denies neck and back pain. Denies joint pain or swelling. SKIN: Denies rash, itchiness, or lesions HEMATOLOGIC : Denies easy bruising or bleeding. LYMPHATIC: Denies swollen, painful, enlarged glands. NEUROLOGICAL: See HPI PSYCHIATRIC: Denies stress, anxiety, alteration in sleep patterns, or depression. All other systems reviewed and negative. Physical Exam - Vital signs Vitals: Temp Pulse Resp BP Pulse Ox 98.1 F 65 16 164/90 H 98 01/21/18 03:09 01/21/18 03:09 01/21/18 03:09 01/21/18 03:09 01/21/18 03:09 - Notes Notes: PHYSICAL EXAMINATION: GENERAL: Appears well, healthy, well-nourished, no acute distress. HEAD: Normocephalic, atraumatic. EYES: PERRL, conjunctiva normal, all extraocular movements intact, sclera nonic teric ENT: Moist mucous membranes. Tenderness to maxillary sinus area. NECK: Supple, no noticeable swelling, redness, rash. Normal range of motion. LUNGS: Equal breath sounds bilaterally and clear to auscultation. No wheezes rales or rhonchi. CARDIOVASCULAR: S1-S2, regular rate, regular rhythm. Radial pulses 2+, normal. ABDOMEN: Normoactive bowel sounds. Soft, nontender, no guarding, no rebound tenderness, and no masses palpated. EXTREMITIES: Normal strength and range of motion, no pitting or edema. No cyanosis. NEUROLOGICAL: Moves all extremities upon command. Strength 5/5 in all extremities. PSYCH: Normal mood, normal affect. SKIN: Warm, dry. No rash, lesions, ulcerations noted. Normal skin turgor. Course - Re-evaluation Re-evalutation: Due to patient's age and chief complaint of dizziness and cough, a full workup for pneumonia and possible other etiologies will be done. She does not have any neurological deficits or discoordination, therefore I do not suspect she has an intracranial bleed. Patient's labs are unremarkable. Her chest x-ray is clear, therefore she does not have pneumonia. Her urinalysis is unremarkable, therefore she does not have a urinary tract infection. She is not complaining of a headache. She does have maxillary sinus tenderness upon palpation. I suspect her dizziness is coming from her sinuses because when she bends down, she feels pressure in her sinuses and sloshing in the area. She will be treated with amoxicillin to treat her sinus infection. 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 Verbal discharge instructions were given to the patient. She verbalized understanding. She is stable for discharge. - Vital Signs Vital signs: Temp Pulse Resp BP Pulse Ox 98.1 F 57 L 16 143/72 H 98 01/21/18 03:09 01/21/18 04:05 01/21/18 03:09 01/21/18 04:05 01/21/18 03:09 - Laboratory Result Diagrams: 01/21/18 04:12 01/21/18 04:12 Laboratory results interpreted by me: 01/21/18 01/21/18 01/21/18 04:12 04:12 04:35 Eosinophils % 7.8 H Glucose 198 H Urine Glucose (UA) 50 H Discharge - Discharge Clinical Impression: Dizziness, Bradycardia Sinusitis Qualifiers: Sinusitis location: maxillary Chronicity: acute Recurrence: non-recurrent Qualified Code(s): J01.00 - Acute maxillary sinusitis, unspecified Condition: Stable Disposition: HOME, SELF-CARE Additional Instructions: You are seen in the emergency department for dizziness and congestion. Your labs are normal at this time. Your chest x-ray is normal. You do not have the flu. You have a sinus infection, which is probably causing her dizziness. You will be will be treated with antibiotics for. Please take the antibiotics as prescribed. Please finish all your antibiotics, even if you feel you are getting better. Your heart rate was also low here in the emergency department. Follow-up with your primary care doctor and your equipment operator wage hand in regards to this issue. If you develop a fever greater than 100.4 F, have worsening cough, or have any symptoms that are worrisome to you, please return to the emergency department. Prescriptions: Amoxicillin Trihydrate [Amoxil 875 mg Tablet] 1 tab PO BID #20 tablet Referrals: YON WILLETT MD [Primary Care Provider] - Follow up as needed
--- NOTE | 2018-01-21 04:14 | RADIOLOGY REPORT (SQ) ---
EXAM DESCRIPTION: X-ray single view chest. CLINICAL HISTORY: 77 years Female, cough x1 week COMPARISON: 02/23/2017 TECHNIQUE: Single portable view of the chest performed on 01/21/2018 at 3:58 AM FINDINGS: The lungs are well expanded and are clear. There is no evidence of a pneumothorax. The cardiac silhouette is stable and enlarged. The mediastinal contours are normal. No acute osseous abnormality is identified. No focal soft tissue abnormalities are seen. Lines and tubes: None. IMPRESSION: 1. No evidence of acute intrathoracic disease. 2. Stable cardiomegaly.
[2018-01-21 04:22] LABS: ABSOLUTE BASOPHILS # (AUTO) 0.1 10^3/uL (0.0-0.2); ABSOLUTE EOSINOPHILS # (AUTO) 0.5 10^3/uL (0.0-0.6); ABSOLUTE LYMPHOCYTES (AUTO) 1.6 10^3/uL (0.5-4.7); ABSOLUTE MONOCYTES (AUTO) 0.6 10^3/uL (0.1-1.4); ABSOLUTE NEUT (AUTO) 3.6 10^3/uL (1.7-8.2); BASOPHILS % (AUTO) 1.3 % (0-2); EOSINOPHILS % (AUTO) 7.8 % (0-6); HEMATOCRIT 42.8 % (36.0-47.0); HEMOGLOBIN 14.9 g/dL (12.0-15.5); LYMPHOCYTES % (AUTO) 24.9 % (13-45); MEAN CORPUSCULAR HEMOGLOBIN 29.6 pg (27.0-33.4); MEAN CORPUSCULAR HGB CONC 34.9 g/dL (32.0-36.0); MEAN CORPUSCULAR VOLUME 85 fl (80-97); MONOCYTES % (AUTO) 9.2 % (3-13); PLATELET COUNT 213 10^3/uL (150-450); RED BLOOD COUNT 5.05 10^6/uL (3.72-5.28); RED CELL DISTRIBUTION WIDTH 13.4 % (11.5-14.0); SEGMENTED NEUTROPHILS % (AUTO) 56.8 % (42-78); TOTAL CELLS COUNTED % (AUTO) 100 %; WHITE BLOOD COUNT 6.4 10^3/uL (4.0-10.5)
[2018-01-21 04:39] LABS: A TYPE INFLUENZA AG NEGATIVE (NEGATIVE); B INFLUENZA AG NEGATIVE (NEGATIVE)
[2018-01-21 04:47] LABS: ALANINE AMINOTRANSFERASE 21 U/L (9-52); ALBUMIN 4.2 g/dL (3.5-5.0); ALKALINE PHOSPHATASE 92 U/L (38-126); ANION GAP 8 (5-19); ASPARTATE AMINO TRANSFERASE 22 U/L (14-36); BILIRUBIN,DIRECT 0.1 mg/dL (0.0-0.4); BILIRUBIN,TOTAL 0.7 mg/dL (0.2-1.3); BLOOD UREA NITROGEN 16 mg/dL (7-20); CALCIUM 9.2 mg/dL (8.4-10.2); CARBON DIOXIDE 28 mmol/L (22-30); CHLORIDE 102 mmol/L (98-107); GLUCOSE 198 mg/dL (75-110); POTASSIUM 4.3 mmol/L (3.6-5.0); SODIUM 138.3 mmol/L (137-145)
[2018-01-21 05:00] LABS: APPEARANCE,URINE CLEAR; BILIRUBIN,URINE NEGATIVE (NEGATIVE); COLOR,URINE YELLOW; GLUCOSE, URINE 50 mg/dL (NEGATIVE); KETONES,URINE NEGATIVE (NEGATIVE); LEUKOCYTE ESTERASE,URINE NEGATIVE (NEGATIVE); NITRITE,URINE NEGATIVE (NEGATIVE); PROTEIN,URINE NEGATIVE (NEGATIVE); URINE SPECIFIC GRAVITY 1.013; UROBILINOGEN,URINE NEGATIVE mg/dL (<2.0)
[2018-01-21 05:57] VITALS: BP 119/48
--- NOTE | 2018-01-21 07:43 | EKG REPORT ---
SEVERITY:- ABNORMAL ECG - SINUS RHYTHM ATRIAL PREMATURE COMPLEX PROBABLE LEFT ATRIAL ABNORMALITY LEFT BUNDLE BRANCH BLOCK : Confirmed by: Jose Bell MD 21-Jan-2018 07:42:38
== END 2018-01-21 05:57 | disposition home or self-care (01) ==
LOC: ER 03:05
DX: J01.00 Acute maxillary sinusitis, unspecified (principal); R00.1 Bradycardia, unspecified; R42 Dizziness and giddiness; I44.7 Left bundle-branch block, unspecified; R05 Cough; I10 Essential (primary) hypertension; E11.9 Type 2 diabetes mellitus without complications; Z88.8 Allergy status to other drugs, medicaments and biological substances; Z88.1 Allergy status to other antibiotic agents; Z88.2 Allergy status to sulfonamides; Z91.041 Radiographic dye allergy status
CPT/HCPCS: 36415; 71045; 80053; 81001; 85025; 87804; 93005; 93010; 99284

== ENCOUNTER 2018-01-25 22:31 | Emergency (ER) | payer MEDICARE, OTHER ==
[2018-01-25] MEDS ORDERED: BESIFLOXACIN HCL 0.6% OPH SUSP 5 ML BOTTLE OD ONE (23:44)
--- NOTE | 2018-01-26 00:27 | RADIOLOGY REPORT (SQ) ---
EXAM DESCRIPTION: XR CHEST 2 VIEWS COMPLETED DATE/TME: 01/25/2018 23:43 CLINICAL HISTORY: 77 years Female, cough fever COMPARISON: 01/21/18 NUMBER OF VIEWS/TECHNIQUE: 2, Frontal, Lateral FINDINGS: Increased lung volume, pulmonary vascular congestion, normal cardiac silhouette, and intact bony thorax. Upper abdominal clips. IMPRESSION: No acute cardiopulmonary findings.
--- NOTE | 2018-01-26 00:36 | ER Document Report ---
ED General - General Chief Complaint: Cold Symptoms Stated Complaint: EYE SWELLING, THROAT AND EAR PAIN Time Seen by Provider: 01/25/18 23:07 Notes: Patient is a 77-year-old female presents with complaint of runny nose cough and congestion. She was seen on the and placed on amoxicillin. She says she still has some cough but today noticed that she is developing mucus in her right eye in her right eye has become matted and irritated. She does not smoke. She denies any vomiting. Subjective fevers at home. No other complaints at this time. TRAVEL OUTSIDE OF THE [place] IN LAST 30 DAYS: No - Related Data Allergies/Adverse Reactions: diphenhydramine HCl [From Benadryl] Allergy (Severe, Verified 09/10/17 12:48) trouble breathing, redness of skin cortisone [Cortisone] Allergy (Unknown, Verified 09/10/17 12:48) oxcarbazepine [From Trileptal] Allergy (Verified 09/10/17 12:48) WEIGHT LOSS erythromycin base [Erythromycin Base] Adverse Reaction (Mild, Verified 09/10/17 12:48) upset stomach Sulfa (Sulfonamide Antibiotics) Adverse Reaction (Mild, Verified 09/10/17 12:48) itchy eyes IVP dye Allergy (Mild, Uncoded 04/22/17 08:05) splotches Past Medical History - Social History Smoking Status: Never Smoker Chew tobacco use (# tins/day): No Frequency of alcohol use: Occasional Drug Abuse: None Family History: Reviewed & Not Pertinent Patient has suicidal ideation: No Patient has homicidal ideation: No - Past Medical History Cardiac Medical History: Reports: Hx Hypercholesterolemia, Hx Hypertension - UP AND DOWN Denies: Hx Coronary Artery Disease - Neg cath 11/16, Hx Heart Attack - catherization Pulmonary Medical History: Reports: Hx Bronchitis Denies: Hx Asthma, Hx COPD, Hx Pneumonia, Hx Tuberculosis Neurological Medical History: Denies: Hx Cerebrovascular Accident, Hx Seizures Endocrine Medical History: Reports: Hx Diabetes Mellitus Type 2 Renal/ Medical History: Denies: Hx Peritoneal Dialysis GI Medical History: Reports: Hx Gastroesophageal Reflux Disease, Hx Hiatal Hernia, Hx Ulcer - years ago, Hx Colonoscopy, Hx Endoscopy. Denies: Hx Hepatitis Musculoskeletal Medical History: Reports Hx Arthritis Psychiatric Medical History: Reports: Hx Anxiety, Hx Bipolar Disorder, Hx Depression Infectious Medical History: Denies: Hx Hepatitis Past Surgical History: Reports: Hx Cardiac Catheterization - 11/2011, Hx Cholecystectomy, Hx Hysterectomy, Hx Orthopedic Surgery - cyst removed right wrist and right shoulder, Other - cyst removed from right shoulder and hand, 8 eye surgeries. Denies: Hx Mastectomy, Hx Open Heart Surgery, Hx Pacemaker - Immunizations Immunizations up to date: No Hx Diphtheria, Pertussis, Tetanus Vaccination: No - unk Hx Pneumococcal Vaccination: 11/06/11 Review of Systems - Review of Systems Notes: My Normal Review Basic REVIEW OF SYSTEMS: CONSTITUTIONAL : Subjective fevers EENT: Nasal congestion, mattering of right eye. RESPIRATORY: Recurrent dry cough GASTROINTESTINAL: Denies abdominal pain. Denies nausea, vomiting, or diarrhea. GENITOURINARY: Denies difficulty urinating, painful urination, burning, frequency, or blood in urine. MUSCULOSKELETAL: Denies neck or back pain or joint pain or swelling. SKIN: Denies rash or skin lesions. NEUROLOGICAL: Denies altered mental status or loss of consciousness. Denies headache. Denies weakness or paralysis or loss of use of either side. Denies problems with gait or speech. Denies sensory or motor loss. ALL OTHER SYSTEMS REVIEWED AND NEGATIVE. Physical Exam - Vital signs Vitals: Temp Pulse Resp BP Pulse Ox 99.3 F 91 21 H 172/74 H 94 01/25/18 22:50 01/25/18 22:50 01/25/18 22:50 01/25/18 22:50 01/25/18 22:50 - Notes Notes: General Appearance: Well nourished, alert, cooperative, no acute distress, no obvious discomfort. Audible nasal congestion on exam. Vitals: reviewed, See vital signs table. Head: no swelling or tenderness to the head Eyes: Pupils are equal and reactive. Patient's right eye is obviously matter with large amount of yellow mucus. Conjunctive is erythematous. No hypopyon. Mouth: No decreasd moisture Throat: No tonsillar inflammation, No airway obstruction, No lymphadenopathy Neck: Supple, no neck tenderness, No thyromegaly Ears: Slight erythema to the right TM. Left TM is normal-appearing. Lungs: No wheezing, No rales, No rhonci, No accessory muscle use, good air exchange bilaterally. Heart: Normal rate, Regular rythm, No murmur, no rub Abdomen: Normal BS, soft, No rigidity, No abdominal tenderness, No guarding, no rebound, Extremities: strength 5/5 in all extremities, good pulses in all extremities, no swelling or tenderness in the extremities, no edema. Skin: warm, dry, appropriate color, no rash Neuro: speech clear, oriented x 3, normal affect, responds appropriately to questions. Course - Re-evaluation Re-evalutation: 01/26/18 00:53 On exam patient is well-appearing. She always has congestion but does not have any difficulty breathing. She has some dry cough on exam. She did have a little bit diminishment on the right. This seems to clear coughing. Being that she is 77 years old I did want to get a repeat x-ray to make sure she is not developing pneumonia. Chest x-ray was negative. She does not have any wheezing therefore I do not think breathing treatment will improve her symptoms of cough. She is on amoxicillin. I will place her on besifloxacin for the conjunctivitis to right eye. I encouraged her follow-up with her doctor early next week. I encouraged her return to ER if she has difficulty breathing or worsening of any of her symptoms. Patient agrees with plan and will be discharged home. Dictation of this chart was performed using voice recognition software; therefore, there may be some unintended grammatical errors. - Vital Signs Vital signs: Temp Pulse Resp BP Pulse Ox 99.3 F 91 21 H 172/74 H 94 01/25/18 22:50 01/25/18 22:50 01/25/18 22:50 01/25/18 22:50 01/25/18 22:50 Discharge - Discharge Clinical Impression: Conjunctivitis Qualifiers: Conjunctivitis type: unspecified Laterality: right Qualified Code(s): H10.9 - Unspecified conjunctivitis URI (upper respiratory infection) Qualifiers: URI type: unspecified URI Qualified Code(s): J06.9 - Acute upper respiratory infection, unspecified Condition: Good Disposition: HOME, SELF-CARE Additional Instructions: You have an infection of your right eye. Please use warm compresses every day and then apply 1 drop of the besifloxacin eyedrop to your eye 3 times a day for 7 days. Please follow-up with your doctor on Sunday for reevaluation. Please return to the ER immediately if you have fevers, difficulty breathing, or if you feel that you are worsening. Please continue taking your amoxicillin as prescribed. Referrals: YON WILLETT MD [Primary Care Provider] - 01/28/18
[2018-01-26] MEDS ORDERED: BESIFLOXACIN HCL 0.6% OPH SUSP 5 ML BOTTLE ONE (00:52)
[2018-01-26 01:29] VITALS: BP 169/69
== END 2018-01-26 01:28 | disposition home or self-care (01) ==
LOC: ER 22:31
DX: J06.9 Acute upper respiratory infection, unspecified (principal); H10.9 Unspecified conjunctivitis; R09.89 Other specified symptoms and signs involving the circulatory and respiratory systems; R05 Cough; R09.81 Nasal congestion; R50.9 Fever, unspecified; I10 Essential (primary) hypertension; E11.9 Type 2 diabetes mellitus without complications
CPT/HCPCS: 71046; 99283

== ENCOUNTER → 2018-04-11 | Outpatient (CLI) | payer MEDICARE, OTHER ==
[2018-04-12 10:38] LABS: CREATININE URINE 47.7 mg/dL (Not Estab.); MICROALBUMIN URINE 6.9 ug/mL (Not Estab.)
== END ==
LOC: OD 10:12
PROVIDERS: ATTEND Family Medicine
DX: E11.65 Type 2 diabetes mellitus with hyperglycemia (principal)
CPT/HCPCS: 36415; 82043; 82570; 83036

== ENCOUNTER → 2018-08-02 | Outpatient (CLI) | payer MEDICARE, OTHER ==
[2018-08-02 09:48] LABS: ANION GAP 8 (5-19); BLOOD UREA NITROGEN 21 mg/dL (7-20); CARBON DIOXIDE 30 mmol/L (22-30); CHLORIDE 101 mmol/L (98-107); CHOLESTEROL 224.06 mg/dL (0-200); GLUCOSE 229 mg/dL (75-110); POTASSIUM 4.9 mmol/L (3.6-5.0); SODIUM 139.2 mmol/L (137-145); TRIGLYCERIDES 150 mg/dL (<150)
[2018-08-02 09:59] LABS: DIRECT LDL 150 mg/dL (<100)
== END ==
LOC: OD 08:32
PROVIDERS: ATTEND Family Medicine
DX: E11.65 Type 2 diabetes mellitus with hyperglycemia (principal); E78.5 Hyperlipidemia, unspecified; I10 Essential (primary) hypertension; R10.9 Unspecified abdominal pain; Z79.899 Other long term (current) drug therapy
CPT/HCPCS: 36415; 80048; 80061; 83036; 84443; 86677

== ENCOUNTER → 2018-10-23 | Outpatient (CLI) | payer MEDICARE, OTHER ==
--- NOTE | 2018-10-23 15:53 | RADIOLOGY REPORT (SQ) ---
EXAM DESCRIPTION: CHEST PA/LATERAL COMPLETED DATE/TIME: 10/23/2018 3:36 pm REASON FOR STUDY: COUGH COMPARISON: 01/26/2018 EXAM PARAMETERS: NUMBER OF VIEWS: two views TECHNIQUE: Digital Frontal and Lateral radiographic views of the chest acquired. RADIATION DOSE: NA LIMITATIONS: none FINDINGS: LUNGS AND PLEURA: No opacities, masses or pneumothorax. No pleural effusion. MEDIASTINUM AND HILAR STRUCTURES: No masses or contour abnormalities. HEART AND VASCULAR STRUCTURES: Cardiomegaly. No pulmonary edema. BONES: No acute findings. HARDWARE: None in the chest. OTHER: No other significant finding. IMPRESSION: Cardiomegaly without pulmonary edema. TECHNICAL DOCUMENTATION: JOB ID: [id number] [employer]- All Rights Reserved Reading location - IP/workstation name: [email or web address]
== END ==
LOC: OD 15:22
PROVIDERS: ATTEND Nurse Practitioner Family
DX: I51.7 Cardiomegaly (principal); R05 Cough
CPT/HCPCS: 71046

== ENCOUNTER 2018-10-27 17:59 | Emergency (ER) | payer MEDICARE, OTHER ==
--- NOTE | 2018-10-27 18:26 | ER Document Report ---
ED Medical Screen (RME) - General Chief Complaint: High Blood Sugar Stated Complaint: BLOOD SUGAR ISSUES Time Seen by Provider: 10/27/18 18:21 Primary Care Provider: MELA KERR FNP-C [Primary Care Provider] - Follow up as needed Mode of Arrival: Ambulatory Information source: Patient Notes: This 78-year-old diabetic patient presents today with complaints of high blood sugar at home reports it was over 400. Upon arrival it was 318. Patient also reports she has been voiding frequently. Also complains of a nagging cough since last Sunday. No fevers. Patient did take her metformin. Denies fever vomiting diarrhea. Denies chest pain. Reports she feels like food gets stuck in her chest every now and then but does not have the pain now. I have greeted and performed a rapid initial assessment of this patient. A comprehensive ED assessment and evaluation of the patient, analysis of test results and completion of the medical decision making process will be conducted by additional ED providers. Dictation of this chart was performed using voice recognition software; therefore, there may be some unintended grammatical errors. TRAVEL OUTSIDE OF THE [place] IN LAST 30 DAYS: No - Related Data Allergies/Adverse Reactions: diphenhydramine HCl [From Benadryl] Allergy (Severe, Verified 09/10/17 12:48) trouble breathing, redness of skin cortisone [Cortisone] Allergy (Unknown, Verified 09/10/17 12:48) oxcarbazepine [From Trileptal] Allergy (Verified 09/10/17 12:48) WEIGHT LOSS erythromycin base [Erythromycin Base] Adverse Reaction (Mild, Verified 09/10/17 12:48) upset stomach Sulfa (Sulfonamide Antibiotics) Adverse Reaction (Mild, Verified 09/10/17 12:48) itchy eyes IVP dye Allergy (Mild, Uncoded 04/22/17 08:05) splotches Past Medical History - Social History Family history: None - Past Medical History Cardiac Medical History: Reports: Hx Hypercholesterolemia, Hx Hypertension - UP AND DOWN Denies: Hx Coronary Artery Disease - Neg cath 11/16, Hx Heart Attack - catherization Pulmonary Medical History: Reports: Hx Bronchitis Denies: Hx Asthma, Hx COPD, Hx Pneumonia, Hx Tuberculosis Neurological Medical History: Denies: Hx Cerebrovascular Accident, Hx Seizures Endocrine Medical History: Reports: Hx Diabetes Mellitus Type 2 Renal/ Medical History: Denies: Hx Peritoneal Dialysis GI Medical History: Reports: Hx Gastroesophageal Reflux Disease, Hx Hiatal Hernia, Hx Ulcer - years ago, Hx Colonoscopy, Hx Endoscopy. Denies: Hx Hepatitis Musculoskeltal Medical History: Reports Hx Arthritis Psychiatric Medical History: Reports: Hx Anxiety, Hx Bipolar Disorder, Hx Depression Infectious Medical History: Denies: Hx Hepatitis Past Surgical History: Reports: Hx Cardiac Catheterization - 11/2011, Hx Cholecystectomy, Hx Hysterectomy, Hx Orthopedic Surgery - cyst removed right wrist and right shoulder, Other - cyst removed from right shoulder and hand, 8 eye surgeries. Denies: Hx Mastectomy, Hx Open Heart Surgery, Hx Pacemaker - Immunizations Immunizations up to date: No Hx Diphtheria, Pertussis, Tetanus Vaccination: No - unk Physical Exam - Vital signs Vitals: Temp Pulse Resp BP Pulse Ox 98.8 F 68 18 218/94 H 99 10/27/18 18:21 10/27/18 18:21 10/27/18 18:21 10/27/18 18:21 10/27/18 18:21 Course - Vital Signs Vital signs: Temp Pulse Resp BP Pulse Ox 98.8 F 68 18 218/94 H 99 10/27/18 18:21 10/27/18 18:21 10/27/18 18:21 10/27/18 18:21 10/27/18 18:21 Doctor's Discharge - Discharge Referrals: MELA KERR FNP-C [Primary Care Provider] - Follow up as needed
[2018-10-27 18:58] LABS: ABSOLUTE BASOPHILS # (AUTO) 0.1 10^3/uL (0.0-0.2); ABSOLUTE EOSINOPHILS # (AUTO) 0.1 10^3/uL (0.0-0.6); ABSOLUTE MONOCYTES (AUTO) 0.7 10^3/uL (0.1-1.4); ABSOLUTE NEUT (AUTO) 8.5 10^3/uL (1.7-8.2); BASOPHILS % (AUTO) 0.9 % (0-2); EOSINOPHILS % (AUTO) 0.6 % (0-6); HEMATOCRIT 46.7 % (36.0-47.0); HEMOGLOBIN 15.7 g/dL (12.0-15.5); LYMPHOCYTES % (AUTO) 17.6 % (13-45); MEAN CORPUSCULAR HEMOGLOBIN 28.6 pg (27.0-33.4); MEAN CORPUSCULAR HGB CONC 33.7 g/dL (32.0-36.0); MEAN CORPUSCULAR VOLUME 85 fl (80-97); MONOCYTES % (AUTO) 5.9 % (3-13); PLATELET COUNT 259 10^3/uL (150-450); RED CELL DISTRIBUTION WIDTH 13.4 % (11.5-14.0); TOTAL CELLS COUNTED % (AUTO) 100 %; VENOUS BLOOD BASE EXCESS 2.3 mmol/L; VENOUS BLOOD HCO3 27.1 mmol/L (20-32); VENOUS BLOOD PCO2 42.7 mmHg (35-63); VENOUS BLOOD PH 7.42 (7.30-7.42); WHITE BLOOD COUNT 11.3 10^3/uL (4.0-10.5)
[2018-10-27 19:18] LABS: ALBUMIN 4.6 g/dL (3.5-5.0); ALKALINE PHOSPHATASE 132 U/L (38-126); ANION GAP 13 (5-19); ASPARTATE AMINO TRANSFERASE 23 U/L (14-36); BILIRUBIN,DIRECT 0.2 mg/dL (0.0-0.4); BILIRUBIN,TOTAL 0.5 mg/dL (0.2-1.3); BLOOD UREA NITROGEN 24 mg/dL (7-20); CALCIUM 9.8 mg/dL (8.4-10.2); CARBON DIOXIDE 26 mmol/L (22-30); CHLORIDE 95 mmol/L (98-107); GLUCOSE 327 mg/dL (75-110); POTASSIUM 4.8 mmol/L (3.6-5.0); TOTAL PROTEIN 7.2 g/dL (6.3-8.2)
--- NOTE | 2018-10-27 19:30 | RADIOLOGY REPORT (SQ) ---
EXAM DESCRIPTION: CHEST 2 VIEWS COMPLETED DATE/TIME: 10/27/2018 7:14 pm REASON FOR STUDY: cough COMPARISON: 10/23/2018 TECHNIQUE: Frontal and lateral radiographic views of the chest acquired. NUMBER OF VIEWS: Two view. LIMITATIONS: None. FINDINGS: LUNGS AND PLEURA: No pneumothorax. No consolidation or pleural effusion. Similar basilar scarring -subsegmental atelectasis. MEDIASTINUM AND HILAR STRUCTURES: Stable. HEART AND VASCULAR STRUCTURES: Stable. BONES: No acute findings. HARDWARE: None in the chest. OTHER: No other significant finding. IMPRESSION: NO ACUTE FINDINGS. TECHNICAL DOCUMENTATION: JOB ID: [id number] [place]-72 2010 [employer]- All Rights Reserved Reading location - IP/workstation name: [email or web address]
[2018-10-27] MEDS ORDERED: NORMAL SALINE 1000 ML 1,000 ML IV ONE (19:52)
--- NOTE | 2018-10-27 19:55 | ER Document Report ---
ED General - General Chief Complaint: High Blood Sugar Stated Complaint: BLOOD SUGAR ISSUES Time Seen by Provider: 10/27/18 18:21 Primary Care Provider: MELA KERR FNP-C [Primary Care Provider] - Follow up as needed Mode of Arrival: Ambulatory Notes: 78-year-old female presents emergency department complaining of a one-week history of cough productive of yellow sputum that has not gotten better. On Sunday she went to urgent care and was prescribed prednisone, albuterol inhaler and doxycycline as well as Tessalon Perles. States that this has not improved at all. Now she states that when she coughs she has pain in the epigastrium as well. Cough is productive yellow sputum. Patient is mostly concerned because her blood sugar and blood pressure at both elevated. Blood sugar at home was approximately 400 and blood pressure was 199 systolic. Patient is a diabetic who takes metformin 500 mg daily. Has noticed increasing urinary frequency mostly when she coughs. TRAVEL OUTSIDE OF THE [place] IN LAST 30 DAYS: No - Related Data Allergies/Adverse Reactions: diphenhydramine HCl [From Benadryl] Allergy (Severe, Verified 10/27/18 18:27) trouble breathing, redness of skin cortisone [Cortisone] Allergy (Unknown, Verified 10/27/18 18:27) oxcarbazepine [From Trileptal] Allergy (Verified 10/27/18 18:27) WEIGHT LOSS erythromycin base [Erythromycin Base] Adverse Reaction (Mild, Verified 10/27/18 18:27) upset stomach Sulfa (Sulfonamide Antibiotics) Adverse Reaction (Mild, Verified 10/27/18 18:27) itchy eyes IVP dye Allergy (Mild, Uncoded 18 08:05) splotches Past Medical History - General Information source: Patient - Social History Smoking Status: Never Smoker Frequency of alcohol use: Occasional Drug Abuse: None Family History: Reviewed & Not Pertinent Patient has suicidal ideation: No Patient has homicidal ideation: No - Past Medical History Cardiac Medical History: Reports: Hx Hypercholesterolemia, Hx Hypertension - UP AND DOWN Denies: Hx Coronary Artery Disease - Neg cath 11/16, Hx Heart Attack - catherization Pulmonary Medical History: Reports: Hx Bronchitis Denies: Hx Asthma, Hx COPD, Hx Pneumonia, Hx Tuberculosis Neurological Medical History: Denies: Hx Cerebrovascular Accident, Hx Seizures Endocrine Medical History: Reports: Hx Diabetes Mellitus Type 2 Renal/ Medical History: Denies: Hx Peritoneal Dialysis GI Medical History: Reports: Hx Gastroesophageal Reflux Disease, Hx Hiatal Hernia, Hx Ulcer - years ago, Hx Colonoscopy, Hx Endoscopy. Denies: Hx Hepatitis Musculoskeletal Medical History: Reports Hx Arthritis Psychiatric Medical History: Reports: Hx Anxiety, Hx Bipolar Disorder, Hx Depression Infectious Medical History: Denies: Hx Hepatitis Past Surgical History: Reports: Hx Cardiac Catheterization - 11/2011, Hx Cholecystectomy, Hx Hysterectomy, Hx Orthopedic Surgery - cyst removed right wrist and right shoulder, Other - cyst removed from right shoulder and hand, 8 eye surgeries. Denies: Hx Mastectomy, Hx Open Heart Surgery, Hx Pacemaker - Immunizations Immunizations up to date: No Hx Diphtheria, Pertussis, Tetanus Vaccination: No - unk Hx Pneumococcal Vaccination: 11/06/11 Review of Systems - Review of Systems Constitutional: No symptoms reported EENT: See HPI, Nose discharge Cardiovascular: No symptoms reported Respiratory: See HPI, Cough, Sputum Gastrointestinal: See HPI. denies: Vomiting Genitourinary: See HPI -: Yes All other systems reviewed and negative Physical Exam - Vital signs Vitals: Temp Pulse Resp BP Pulse Ox 98.8 F 68 18 218/94 H 99 10/27/18 18:21 10/27/18 18:21 10/27/18 18:21 10/27/18 18:21 10/27/18 18:21 Interpretation: Hypertensive - Notes Notes: GENERAL: Alert, interacts well. No acute distress. HEAD: Normocephalic, atraumatic EYES: Pupils equal, round and reactive to light, extraocular movements intact. ENT: Oral mucosa moist, tongue midline. Left ear shows injection of the tympanic membrane with small amount of clear fluid. NECK: Full range of motion, supple, trachea midline. LUNGS: Clear to auscultation bilaterally, no wheezes, rales or rhonchi, no respiratory distress. HEART: Regular rate and rhythm, no murmurs, gallops, rubs. ABDOMEN: Soft, nontender, nondistended, bowel sounds present in all 4 quadrants. EXTREMITIES: Moves all 4 extremities spontaneously, no edema, radial and dorsalis pedis pulses 2/4 bilaterally. No cyanosis. NEUROLOGICAL: Alert and oriented x3, normal speech. PSYCH: Normal mood, normal affect. SKIN: Warm, Dry, normal turgor, no rashes or lesions noted. Course - Re-evaluation Re-evalutation: 10/27/18 22:13 CBC shows mild leukocytosis 11.3, no shift, VBG unremarkable, chemistries show slight low sodium at 133.7, elevated glucose at 327, after half a liter of normal saline its only down to 312, will be given 3 units of insulin subcu, tr oponin negative, lipase normal, urine shows glucose but no signs of dehydration or infection. Chest x-ray does not reveal any acute process. No signs of pneumonia. Patient did have several episodes of coughing here that brought up yellow sputum. After being given a breathing treatment she actually brought up more sputum. Patient states she is not sure how to use her inhaler that she was given by urgent care. Patient will be given a spacer and instructed on exactly how to use her inhaler. Patient is already on prednisone, albuterol inhaler, doxycycline and Tessalon Perles. At present I do not think there is anything else we can do for her to help to resolve this cough any sooner, she will simply have to wait for the bronchitis to run its course and the doxycycline to take effect. Patient has been instructed to double her metformin while she is on the steroids and for 2 days afterwards. The elevated blood pressure is likely also a side effect of the steroid. Patient is not having any chest pain or headache or anything else that would be a sign of hypertensive emergency. No need for further blood pressure treatment temporarily at this time. Discharged home. - Vital Signs Vital signs: Temp Pulse Resp BP Pulse Ox 98.8 F 68 14 173/75 H 97 10/27/18 18:21 10/27/18 18:21 10/27/18 21:01 10/27/18 21:01 10/27/18 21:01 - Laboratory Result Diagrams: 10/27/18 18:39 10/27/18 18:39 Laboratory results interpreted by me: 10/27/18 10/27/18 10/27/18 18:39 18:39 20:05 WBC 11.3 H RBC 5.50 H Hgb 15.7 H Absolute Neuts (auto) 8.5 H Sodium 133.7 L Chloride 95 L BUN 24 H Glucose 327 H POC Glucose Alkaline Phosphatase 132 H Urine Glucose (UA) >=500 H 10/27/18 22:02 WBC RBC Hgb Absolute Neuts (auto) Sodium Chloride BUN Glucose POC Glucose 312 H Alkaline Phosphatase Urine Glucose (UA) Discharge - Discharge Clinical Impression: Bronchitis Steroid side effects Qualifiers: Encounter type: initial encounter Qualified Code(s): T38.0X5A - Adverse effect of glucocorticoids and synthetic analogues, initial encounter Hyperglycemia due to type 2 diabetes mellitus Qualifiers: Diabetes mellitus superintendent container terminal insulin use: without superintendent container terminal use Qualified Code(s): E11.65 - Type 2 diabetes mellitus with hyperglycemia Condition: Stable Disposition: HOME, SELF-CARE Additional Instructions: Bronchitis with Bronchospasm (Wheezing) You have bronchitis with bronchospasm (wheezing). Sometimes people develop wheezing with a chest cold. This occurs either because of an underlying tendency toward asthma or because the virus itself irritates the bronchial tubes. This irritation causes cough, shortness of breath, and wheezing. Emergency treatment of bronchospasm may include adrenaline shots or bronchodilator aerosol. You may feel lightheaded and have a rapid pulse for an hour or two. Rest and get plenty of fluids. At home, we'll treat you with a bronchodilator inhaler. Corticosteroids may be required for some patients. Until you recover, avoid chemical fumes, dusts, pollens, and exercising in very cold or dry air. If you smoke, stop now! Most cases of bronchitis get better without antibiotics. We prescribe antibiotics when we believe bacteria are damaging your airways, or if there's high risk the bronchitis will worsen into pneumonia. Increase your fluid intake. A cool mist humidifier may make your lungs more comfortable. An expectorant (cough medicine that loosens phlegm) can help. Repeated episodes of bronchitis and bronchospasm may result in lung damage -- for example, chronic bronchitis, recurrent pneumonias, or emphysema. If you develop a fever, increased wheezing, chest pain, or severe shortness of breath, you should contact the doctor immediately. Please take a double dose of your metformin every day while you are still taking the steroids and for 2 days after that. It would help to better control your blood sugar. Your blood pressure is likely elevated due to the steroids. If it continues to be elevated 1 week after finishing the steroids please follow-up with your primary care physician. Please use your albuterol inhaler with the spacer 2 puffs every 4 hours as needed for cough or wheezing. Please use nasal saline rinses such as a NetiPot or NeilMed Sinus Rinses. You may also use nasal steroid such as Nasonex or Flonase as available [id number]. Referrals: MELA KERR, CONTINUOUS WASHER OPERATOR-C [Primary Care Provider] - Follow up as needed
[2018-10-27 20:26] LABS: APPEARANCE,URINE CLEAR; BILIRUBIN,URINE NEGATIVE (NEGATIVE); COLOR,URINE STRAW; GLUCOSE, URINE >=500 mg/dL (NEGATIVE); KETONES,URINE NEGATIVE (NEGATIVE); LEUKOCYTE ESTERASE,URINE NEGATIVE (NEGATIVE); NITRITE,URINE NEGATIVE (NEGATIVE); PROTEIN,URINE NEGATIVE (NEGATIVE); UROBILINOGEN,URINE NEGATIVE mg/dL (<2.0)
[2018-10-27] MEDS ORDERED: ALBUTEROL SULFATE 0.083% NEB 2.5 MG/3 ML AMPUL NEB ONE (21:02)
[2018-10-27 21:40] VITALS: BP 173/75
[2018-10-27] MEDS ORDERED: INSULIN REG, HUMAN 100 UNIT/ML 3 ML VIAL (PYX) SUBCUT ONE (22:05)
== END 2018-10-27 22:52 | disposition home or self-care (01) ==
LOC: ER 17:59
DX: E11.65 Type 2 diabetes mellitus with hyperglycemia (principal); T38.0X5A Adverse effect of glucocorticoids and synthetic analogues, initial encounter; J40 Bronchitis, not specified as acute or chronic; R05 Cough; R10.13 Epigastric pain; R35.0 Frequency of micturition; I10 Essential (primary) hypertension; R09.89 Other specified symptoms and signs involving the circulatory and respiratory systems; D72.829 Elevated white blood cell count, unspecified; Z79.84 Long term (current) use of oral hypoglycemic drugs; Z88.8 Allergy status to other drugs, medicaments and biological substances; Z91.041 Radiographic dye allergy status
CPT/HCPCS: 94640; 99285; 96360; 96361; 36415; 82962; 83690; 85025; 80053; 81001; 84484; 82803; 71046; A9270 ×2; J7030; J1815

== ENCOUNTER 2018-11-01 16:58 | Emergency (ER) | payer MEDICARE, OTHER ==
[2018-11-01] MEDS ORDERED: IPRATROPIUM/ALBUTEROL 0.5-2.5 MG/3 ML AMPUL NEB ONE (17:29)
--- NOTE | 2018-11-01 17:31 | ER Document Report ---
ED Medical Screen (RME) - General Chief Complaint: Weakness Stated Complaint: WEAKNESS Time Seen by Provider: 11/01/18 17:21 Primary Care Provider: MELA KERR FNP-C [Primary Care Provider] - Follow up as needed Notes: Patient is an 78-year-old female who presents emergency department with a chief complaint weakness. She has had her symptoms for the past 5 days. She also has complaints of a cough. States that she has had some chills today. She states that her whole body hurts and she feels like she cannot walk as much as she normally does. Exam: Expiratory wheezes noted in all lung chavarria. I have greeted and performed a rapid initial assessment of this patient. A comprehensive ED assessment and evaluation of the patient, analysis of test results and completion of medical decision making process will be conducted by an additional ED providers. TRAVEL OUTSIDE OF THE [place] IN LAST 30 DAYS: No - Related Data Allergies/Adverse Reactions: diphenhydramine HCl [From Benadryl] Allergy (Severe, Verified 10/27/18 18:27) trouble breathing, redness of skin cortisone [Cortisone] Allergy (Unknown, Verified 10/27/18 18:27) oxcarbazepine [From Trileptal] Allergy (Verified 10/27/18 18:27) WEIGHT LOSS erythromycin base [Erythromycin Base] Adverse Reaction (Mild, Verified 10/27/18 18:27) upset stomach Sulfa (Sulfonamide Antibiotics) Adverse Reaction (Mild, Verified 10/27/18 18:27) itchy eyes IVP dye Allergy (Mild, Uncoded 04/22/17 08:05) splotches Past Medical History - Social History Family history: None - Past Medical History Cardiac Medical History: Reports: Hx Hypercholesterolemia, Hx Hypertension - UP AND DOWN Denies: Hx Coronary Artery Disease - Neg cath 11/16, Hx Heart Attack - catherization Pulmonary Medical History: Reports: Hx Bronchitis Denies: Hx Asthma, Hx COPD, Hx Pneumonia, Hx Tuberculosis Neurological Medical History: Denies: Hx Cerebrovascular Accident, Hx Seizures Endocrine Medical History: Reports: Hx Diabetes Mellitus Type 2 Renal/ Medical History: Denies: Hx Peritoneal Dialysis GI Medical History: Reports: Hx Gastroesophageal Reflux Disease, Hx Hiatal Hernia, Hx Ulcer - years ago, Hx Colonoscopy, Hx Endoscopy. Denies: Hx Hepatitis Musculoskeltal Medical History: Reports Hx Arthritis Psychiatric Medical History: Reports: Hx Anxiety, Hx Bipolar Disorder, Hx Depression Infectious Medical History: Denies: Hx Hepatitis Past Surgical History: Reports: Hx Cardiac Catheterization - 11/2011, Hx Cholecystectomy, Hx Hysterectomy, Hx Orthopedic Surgery - cyst removed right wrist and right shoulder, Other - cyst removed from right shoulder and hand, 8 eye surgeries. Denies: Hx Mastectomy, Hx Open Heart Surgery, Hx Pacemaker - Immunizations Immunizations up to date: No Hx Diphtheria, Pertussis, Tetanus Vaccination: No - unk Doctor's Discharge - Discharge Referrals: MELA KERR FNP-C [Primary Care Provider] - Follow up as needed
[2018-11-01 18:19] LABS: ABSOLUTE BASOPHILS # (AUTO) 0.1 10^3/uL (0.0-0.2); ABSOLUTE EOSINOPHILS # (AUTO) 0.3 10^3/uL (0.0-0.6); ABSOLUTE LYMPHOCYTES (AUTO) 1.8 10^3/uL (0.5-4.7); ABSOLUTE MONOCYTES (AUTO) 0.8 10^3/uL (0.1-1.4); ABSOLUTE NEUT (AUTO) 6.4 10^3/uL (1.7-8.2); BASOPHILS % (AUTO) 0.6 % (0-2); EOSINOPHILS % (AUTO) 3.6 % (0-6); HEMATOCRIT 46.4 % (36.0-47.0); HEMOGLOBIN 15.5 g/dL (12.0-15.5); LYMPHOCYTES % (AUTO) 19.2 % (13-45); MEAN CORPUSCULAR HEMOGLOBIN 28.8 pg (27.0-33.4); MEAN CORPUSCULAR HGB CONC 33.4 g/dL (32.0-36.0); MEAN CORPUSCULAR VOLUME 86 fl (80-97); MONOCYTES % (AUTO) 8.1 % (3-13); PLATELET COUNT 189 10^3/uL (150-450); RED BLOOD COUNT 5.39 10^6/uL (3.72-5.28); RED CELL DISTRIBUTION WIDTH 13.3 % (11.5-14.0); SEGMENTED NEUTROPHILS % (AUTO) 68.5 % (42-78); TOTAL CELLS COUNTED % (AUTO) 100 %; WHITE BLOOD COUNT 9.3 10^3/uL (4.0-10.5)
--- NOTE | 2018-11-01 18:19 | RADIOLOGY REPORT (SQ) ---
EXAM DESCRIPTION: CHEST 2 VIEWS COMPLETED DATE/TIME: 11/01/2018 5:54 pm REASON FOR STUDY: weakness COMPARISON: 10/27/2018 TECHNIQUE: Frontal and lateral radiographic views of the chest acquired. NUMBER OF VIEWS: Two view. LIMITATIONS: None. FINDINGS: LUNGS AND PLEURA: No pneumothorax. Similar chronic interstitial changes -basilar scarring . No consolidation or pleural effusion. MEDIASTINUM AND HILAR STRUCTURES: Stable. HEART AND VASCULAR STRUCTURES: Stable. BONES: No acute findings. HARDWARE: None in the chest. OTHER: No other significant finding. IMPRESSION: NO ACUTE FINDINGS. TECHNICAL DOCUMENTATION: JOB ID: [id number] [place]-72 2010 [employer]- All Rights Reserved Reading location - IP/workstation name: [email or web address]
[2018-11-01 18:57] LABS: ALBUMIN 3.9 g/dL (3.5-5.0); ALKALINE PHOSPHATASE 103 U/L (38-126); ANION GAP 8 (5-19); ASPARTATE AMINO TRANSFERASE 20 U/L (14-36); BILIRUBIN,DIRECT 0.1 mg/dL (0.0-0.4); BILIRUBIN,TOTAL 0.7 mg/dL (0.2-1.3); BLOOD UREA NITROGEN 22 mg/dL (7-20); CALCIUM 9.2 mg/dL (8.4-10.2); CARBON DIOXIDE 27 mmol/L (22-30); CHLORIDE 100 mmol/L (98-107); GLUCOSE 319 mg/dL (75-110); POTASSIUM 4.4 mmol/L (3.6-5.0); TOTAL PROTEIN 6.5 g/dL (6.3-8.2)
[2018-11-01] MEDS ORDERED: RINGERS SOLUTION,LACTATED 1,000 ML IV ONE (19:13)
--- NOTE | 2018-11-01 19:15 | ER Document Report ---
ED General - General Chief Complaint: General Weakness Stated Complaint: WEAKNESS Time Seen by Provider: 11/01/18 17:21 Primary Care Provider: MELA KERR FNP-C [NURSE PRACTITIONER] - Follow up as needed TRAVEL OUTSIDE OF THE [place] IN LAST 30 DAYS: No - HPI Notes: Patient presents with 1 week of generalized weakness feeling rundown with a productive cough of yellow to white sputum. He denies any chest pain or shortness of breath. She denies any nausea vomiting or diarrhea - Related Data Allergies/Adverse Reactions: diphenhydramine HCl [From Benadryl] Allergy (Severe, Verified 10/27/18 18:27) trouble breathing, redness of skin cortisone [Cortisone] Allergy (Unknown, Verified 10/27/18 18:27) oxcarbazepine [From Trileptal] Allergy (Verified 10/27/18 18:27) WEIGHT LOSS erythromycin base [Erythromycin Base] Adverse Reaction (Mild, Verified 10/27/18 18:27) upset stomach Sulfa (Sulfonamide Antibiotics) Adverse Reaction (Mild, Verified 10/27/18 18:27) itchy eyes IVP dye Allergy (Mild, Uncoded 04/22/17 08:05) splotches Past Medical History - Social History Smoking Status: Never Smoker Frequency of alcohol use: Rare Drug Abuse: None Family History: Reviewed & Not Pertinent Patient has suicidal ideation: No Patient has homicidal ideation: No - Past Medical History Cardiac Medical History: Reports: Hx Hypercholesterolemia, Hx Hypertension Denies: Hx Coronary Artery Disease - Neg cath 11/16, Hx Heart Attack - catherization Pulmonary Medical History: Reports: Hx Bronchitis Denies: Hx Asthma, Hx COPD, Hx Pneumonia, Hx Tuberculosis Neurological Medical History: Denies: Hx Cerebrovascular Accident, Hx Seizures Endocrine Medical History: Reports: Hx Diabetes Mellitus Type 2 Renal/ Medical History: Denies: Hx Peritoneal Dialysis GI Medical History: Reports: Hx Gastroesophageal Reflux Disease, Hx Hiatal Hernia, Hx Ulcer - years ago, Hx Colonoscopy, Hx Endoscopy. Denies: Hx Hepatitis Musculoskeletal Medical History: Reports Hx Arthritis Psychiatric Medical History: Reports: Hx Anxiety, Hx Bipolar Disorder, Hx Depression Infectious Medical History: Denies: Hx Hepatitis Past Surgical History: Reports: Hx Cardiac Catheterization - 11/2011, Hx Chol ecystectomy, Hx Hysterectomy, Hx Orthopedic Surgery - cyst removed right wrist and right shoulder, Other - cyst removed from right shoulder and hand, 8 eye surgeries. Denies: Hx Mastectomy, Hx Open Heart Surgery, Hx Pacemaker - Immunizations Immunizations up to date: No Hx Diphtheria, Pertussis, Tetanus Vaccination: No - unk Hx Pneumococcal Vaccination: 11/06/11 Review of Systems - Review of Systems Constitutional: No symptoms reported EENT: No symptoms reported Cardiovascular: No symptoms reported Respiratory: See HPI Gastrointestinal: No symptoms reported Genitourinary: No symptoms reported Female Genitourinary: No symptoms reported Musculoskeletal: No symptoms reported Skin: No symptoms reported Hematologic/Lymphatic: No symptoms reported Neurological/Psychological: No symptoms reported Physical Exam - Vital signs Vitals: Temp Pulse Resp BP Pulse Ox 98.5 F 73 18 182/84 H 97 11/01/18 17:11/01/18 17:11/01/18 17:09 11/01/18 17:09 11/01/18 17:09 - General General appearance: Appears well, Alert - HEENT Head: Normocephalic, Atraumatic Eyes: Normal Pupils: PERRL - Respiratory Respiratory status: No respiratory distress Chest status: Nontender Breath sounds: Normal Chest palpation: Normal - Cardiovascular Rhythm: Regular Heart sounds: Normal auscultation Murmur: No - Neurological Neuro grossly intact: Yes Cognition: Normal Orientation: AAOx4 Course - Re-evaluation Re-evalutation: 11/01/18 19:14 Overall well-appearing patient jumped out of the bed when open the door because it scared her. Oriented x4. Lungs are clear but she was coughing during exam. She states she has been coughing up yellowish to white sputum. Dr. Jain is her primary care doctor. She was provided albuterol puffer and Keflex looking at the review of medications. The Keflex was prescribed on the of this month yesterday. X-ray and labs in progress 11/01/18 20:31 Chest x-ray shows no acute abnormalities. Patient is already on Keflex as well as albuterol puffer and she has a bottle of as a lasting which she has not opened yet. I discussed to use all these medications and follow-up with Dr. Jain in the next 2 to 5 days if symptoms are not improving. Drink plenty fluids get plenty of rest during this time. - Vital Signs Vital signs: Temp Pulse Resp BP Pulse Ox 98.5 F 73 18 182/84 H 97 11/01/18 17:09 11/01/18 17:09 11/01/18 17:09 11/01/18 17:09 11/01/18 17:09 - Laboratory Result Diagrams: 11/01/18 17:40 11/01/18 17:41 Laboratory results interpreted by me: 11/01/18 11/01/18 17:40 17:41 RBC 5.39 H Sodium 134.9 L BUN 22 H Glucose 319 H - Diagnostic Test Radiology reviewed: Reports reviewed Discharge - Discharge Clinical Impression: URI with cough and congestion Condition: Good Disposition: HOME, SELF-CARE Additional Instructions: Please continue to take the antibiotic prescribed to you by your primary care physician, as well as albuterol puffer 2 puffs every 4 hours while awake for the next 2 days and then 2 puffs every 4 hours as needed thereafter, and take the nasal puffers that were prescribed to you Referrals: MAXIMINO JAIN MD [Primary Care Provider] - Follow up in 3-5 days (If symptoms are not improving)
[2018-11-01 21:53] VITALS: BP 164/73
== END 2018-11-01 21:46 | disposition home or self-care (01) ==
LOC: ER 16:58
DX: J06.9 Acute upper respiratory infection, unspecified (principal); R53.1 Weakness; E78.00 Pure hypercholesterolemia, unspecified; I10 Essential (primary) hypertension; E11.9 Type 2 diabetes mellitus without complications; Z88.2 Allergy status to sulfonamides; Z88.3 Allergy status to other anti-infective agents; Z90.49 Acquired absence of other specified parts of digestive tract; Z91.041 Radiographic dye allergy status; Z90.710 Acquired absence of both cervix and uterus
CPT/HCPCS: 94640; 99283; 96360; 36415; 85025; 80053; 71046; J7120; A9270; J7620

== ENCOUNTER 2018-11-03 09:26 | Emergency (ER) | payer MEDICARE, OTHER ==
[2018-11-03] MEDS ORDERED: IPRATROPIUM/ALBUTEROL 0.5-2.5 MG/3 ML AMPUL NEB ONE (09:46)
--- NOTE | 2018-11-03 09:48 | ER Document Report ---
ED Medical Screen (RME) - General Chief Complaint: Chest Congestion Stated Complaint: CHILLS Time Seen by Provider: 11/03/18 09:45 Primary Care Provider: MAXIMINO JAIN MD [Primary Care Provider] - Follow up as needed Mode of Arrival: Ambulatory Information source: Patient Notes: Patient presents complaining of cold sweats and chills with shortness of breath and diarrhea. Patient states she has had a productive cough for the past 2 weeks and is been seen for this problem twice already. Patient has been on antibiotics to treat her symptoms. Patient denies any chest pain hx: Hypertension, diabetes I have greeted and performed a rapid initial assessment of this patient. A comprehensive ED assessment and evaluation of the patient, analysis of test results and completion of the medical decision making process will be conducted by additional ED providers. TRAVEL OUTSIDE OF THE [place] IN LAST 30 DAYS: No - Related Data Allergies/Adverse Reactions: diphenhydramine HCl [From Benadryl] Allergy (Severe, Verified 11/03/18 09:41) trouble breathing, redness of skin cortisone [Cortisone] Allergy (Unknown, Verified 11/03/18 09:41) oxcarbazepine [From Trileptal] Allergy (Verified 11/03/18 09:41) WEIGHT LOSS erythromycin base [Erythromycin Base] Adverse Reaction (Mild, Verified 11/03/18 09:41) upset stomach Sulfa (Sulfonamide Antibiotics) Adverse Reaction (Mild, Verified 11/03/18 09:41) itchy eyes IVP dye Allergy (Mild, Uncoded 11/03/18 09:41) splotches Past Medical History - Social History Chew tobacco use (# tins/day): No Frequency of alcohol use: None Drug Abuse: None Family history: None - Past Medical History Cardiac Medical History: Reports: Hx Hypercholesterolemia, Hx Hypertension Denies: Hx Coronary Artery Disease - Neg cath 11/16, Hx Heart Attack - catherization Pulmonary Medical History: Reports: Hx Bronchitis Denies: Hx Asthma, Hx COPD, Hx Pneumonia, Hx Tuberculosis Neurological Medical History: Denies: Hx Cerebrovascular Accident, Hx Seizures Endocrine Medical History: Reports: Hx Diabetes Mellitus Type 2 Renal/ Medical History: Denies: Hx Peritoneal Dialysis GI Medical History: Reports: Hx Gastroesophageal Reflux Disease, Hx Hiatal Hernia, Hx Ulcer - years ago, Hx Colonoscopy, Hx Endoscopy. Denies: Hx Hepatitis Musculoskeltal Medical History: Reports Hx Arthritis Psychiatric Medical History: Reports: Hx Anxiety, Hx Bipolar Disorder, Hx Depression Infectious Medical History: Denies: Hx Hepatitis Past Surgical History: Reports: Hx Cardiac Catheterization - 11/2011, Hx Cholecystectomy, Hx Hysterectomy, Hx Orthopedic Surgery - cyst removed right wrist and right shoulder, Other - cyst removed from right shoulder and hand, 8 eye surgeries. Denies: Hx Mastectomy, Hx Open Heart Surgery, Hx Pacemaker - Immunizations Immunizations up to date: No Hx Diphtheria, Pertussis, Tetanus Vaccination: No - unk Physical Exam - Vital signs Vitals: Temp Pulse Resp BP Pulse Ox 99.3 F 74 18 170/59 H 98 11/03/18 09:11/03/18 09:11/03/18 09:11/03/18 09:11/03/18 09:29 - Respiratory Breath sounds: Productive cough, Rhonchi, Wheezing Course - Vital Signs Vital signs: Temp Pulse Resp BP Pulse Ox 99.3 F 74 18 170/59 H 98 11/03/18 09:11/03/18 09:11/03/18 09:11/03/18 09:11/03/18 09:29 Doctor's Discharge - Discharge Referrals: MAXIMINO JAIN MD [Primary Care Provider] - Follow up as needed
[2018-11-03 11:13] LABS: APPEARANCE,URINE CLEAR; BILIRUBIN,URINE NEGATIVE (NEGATIVE); COLOR,URINE YELLOW; GLUCOSE, URINE >=500 mg/dL (NEGATIVE); KETONES,URINE NEGATIVE (NEGATIVE); LEUKOCYTE ESTERASE,URINE NEGATIVE (NEGATIVE); NITRITE,URINE NEGATIVE (NEGATIVE); PROTEIN,URINE NEGATIVE (NEGATIVE); URINE SPECIFIC GRAVITY 1.017; UROBILINOGEN,URINE NEGATIVE mg/dL (<2.0)
--- NOTE | 2018-11-03 11:35 | RADIOLOGY REPORT (SQ) ---
EXAM DESCRIPTION: CHEST 2 VIEWS COMPLETED DATE/TIME: 11/03/2018 11:23 am REASON FOR STUDY: cough COMPARISON: None. NUMBER OF VIEWS: Two view. TECHNIQUE: Frontal and lateral radiographic views of the chest acquired. LIMITATIONS: None. FINDINGS: LUNGS AND PLEURA: No opacities, masses or pneumothorax. No pleural effusion. MEDIASTINUM AND HILAR STRUCTURES: No masses. No contour abnormalities. HEART AND VASCULAR STRUCTURES: Heart enlarged without failure. Aorta normal for age. BONES: No acute findings. HARDWARE: None in the chest. OTHER: No other significant finding. IMPRESSION: CARDIAC ENLARGEMENT WITHOUT FAILURE. TECHNICAL DOCUMENTATION: JOB ID: [id number] [employer]- All Rights Reserved Reading location - IP/workstation name: [email or web address]
[2018-11-03 12:13] LABS: VENOUS BLOOD BASE EXCESS 1.3 mmol/L; VENOUS BLOOD HCO3 25.4 mmol/L (20-32); VENOUS BLOOD PCO2 38.9 mmHg (35-63); VENOUS BLOOD PH 7.43 (7.30-7.42)
[2018-11-03] MEDS ORDERED: FLUCONAZOLE 100 MG TABLET PO ONE (12:16)
[2018-11-03 12:19] LABS: ABSOLUTE BASOPHILS # (AUTO) 0.1 10^3/uL (0.0-0.2); ABSOLUTE EOSINOPHILS # (AUTO) 0.3 10^3/uL (0.0-0.6); ABSOLUTE LYMPHOCYTES (AUTO) 1.5 10^3/uL (0.5-4.7); ABSOLUTE MONOCYTES (AUTO) 0.8 10^3/uL (0.1-1.4); ABSOLUTE NEUT (AUTO) 5.8 10^3/uL (1.7-8.2); BASOPHILS % (AUTO) 0.8 % (0-2); EOSINOPHILS % (AUTO) 3.6 % (0-6); HEMATOCRIT 44.2 % (36.0-47.0); HEMOGLOBIN 14.7 g/dL (12.0-15.5); LYMPHOCYTES % (AUTO) 17.7 % (13-45); MEAN CORPUSCULAR HEMOGLOBIN 28.6 pg (27.0-33.4); MEAN CORPUSCULAR HGB CONC 33.3 g/dL (32.0-36.0); MEAN CORPUSCULAR VOLUME 86 fl (80-97); PLATELET COUNT 188 10^3/uL (150-450); RED BLOOD COUNT 5.15 10^6/uL (3.72-5.28); RED CELL DISTRIBUTION WIDTH 13.5 % (11.5-14.0); SEGMENTED NEUTROPHILS % (AUTO) 68.9 % (42-78); TOTAL CELLS COUNTED % (AUTO) 100 %; WHITE BLOOD COUNT 8.4 10^3/uL (4.0-10.5)
--- NOTE | 2018-11-03 12:20 | ER Document Report ---
ED General - General Chief Complaint: Chest Congestion Stated Complaint: CHILLS Time Seen by Provider: 11/03/18 09:45 Primary Care Provider: MAXIMINO JAIN MD [Primary Care Provider] - Follow up as needed Mode of Arrival: Ambulatory Notes: 78-year-old female presents emergency department complaining of a cough x2 weeks as well as diarrhea and vomiting for the past few days. Patient complains of a tight feeling in her epigastrium and lower chest. Describes dyspnea on exertion, sweats and chills. Patient is already been treated with steroids, albuterol inhaler with spacer, full course of doxycycline and has now been placed on Keflex on the 26 by her primary care physician Dr. Jain. Denies any fevers. Patient admits she is quite frustrated by her cough as it is causing her large amount of urinary incontinence and she states that she is peeing almost nonstop and that she is having burning when she pees because the skin around her vagina is so broken down and burning. TRAVEL OUTSIDE OF THE [place] IN LAST 30 DAYS: No - Related Data Allergies/Adverse Reactions: diphenhydramine HCl [From Benadryl] Allergy (Severe, Verified 11/03/18 09:41) trouble breathing, redness of skin cortisone [Cortisone] Allergy (Unknown, Verified 11/03/18 09:41) oxcarbazepine [From Trileptal] Allergy (Verified 11/03/18 09:41) WEIGHT LOSS erythromycin base [Erythromycin Base] Adverse Reaction (Mild, Verified 11/03/18 09:41) upset stomach Sulfa (Sulfonamide Antibiotics) Adverse Reaction (Mild, Verified 11/03/18 09:41) itchy eyes IVP dye Allergy (Mild, Uncoded 11/03/18 09:41) splotches Past Medical History - General Information source: Patient - Social History Smoking Status: Never Smoker Chew tobacco use (# tins/day): No Frequency of alcohol use: Rare Drug Abuse: None Family History: Reviewed & Not Pertinent Patient has suicidal ideation: No Patient has homicidal ideation: No - Past Medical History Cardiac Medical History: Reports: Hx Hypercholesterolemia, Hx Hypertension Denies: Hx Coronary Artery Disease - Neg cath 11/16, Hx Heart Attack - catherization Pulmonary Medical History: Reports: Hx Bronchitis Denies: Hx Asthma, Hx COPD, Hx Pneumonia, Hx Tuberculosis Neurological Medical History: Denies: Hx Cerebrovascular Accident, Hx Seizures Endocrine Medical History: Reports: Hx Diabetes Mellitus Type 2 Renal/ Medical History: Denies: Hx Peritoneal Dialysis GI Medical History: Reports: Hx Gastroesophageal Reflux Disease, Hx Hiatal Hernia, Hx Ulcer - years ago, Hx Colonoscopy, Hx Endoscopy. Denies: Hx Hepatitis Musculoskeletal Medical History: Reports Hx Arthritis Psychiatric Medical History: Reports: Hx Anxiety, Hx Bipolar Disorder, Hx Depression Infectious Medical History: Denies: Hx Hepatitis Past Surgical History: Reports: Hx Cardiac Catheterization - 11/2011, Hx Cholecystectomy, Hx Hysterectomy, Hx Orthopedic Surgery - cyst removed right wrist and right shoulder, Other - cyst removed from right shoulder and hand, 8 eye surgeries. Denies: Hx Mastectomy, Hx Open Heart Surgery, Hx Pacemaker - Immunizations Immunizations up to date: No Hx Diphtheria, Pertussis, Tetanus Vaccination: No - unk Hx Pneumococcal Vaccination: 11/06/11 Review of Systems - Review of Systems Constitutional: Chills, Diaphoresis EENT: No symptoms reported Cardiovascular: See HPI, Chest pain - Lower chest pain. Respiratory: See HPI Gastrointestinal: See HPI -: Yes All other systems reviewed and negative Physical Exam - Vital signs Vitals: Temp Pulse Resp BP Pulse Ox 99.3 F 74 18 170/59 H 98 11/03/18 09:29 11/03/18 09:29 11/03/18 09:29 11/03/18 09:29 11/03/18 09:29 Interpretation: Hypertensive - Notes Notes: GENERAL: Alert, interacts well. No acute distress. HEAD: Normocephalic, atraumatic EYES: Pupils equal, round and reactive to light, extraocular movements intact. ENT: Oral mucosa moist, tongue midline. NECK: Full range of motion, supple, trachea midline. LUNGS: Clear to auscultation bilaterally, no wheezes, rales or rhonchi, no respiratory distress. HEART: Regular rate and rhythm, no murmurs, gallops, rubs. ABDOMEN: Soft, nontender including the epigastrium, nondistended, bowel sounds present in all 4 quadrants. EXTREMITIES: Moves all 4 extremities spontaneously, no edema, radial and dorsalis pedis pulses 2/4 bilaterally. No cyanosis. NEUROLOGICAL: Alert and oriented x3, normal speech, biceps and patellar DTRs 2+ bilaterally. PSYCH: Normal mood, normal affect. SKIN: Warm, Dry, beefy red erythema with some satellite lesions around the labia, small amount of skin peeling, no blistering or skin sloughing. Course - Re-evaluation Re-evalutation: 11/03/18 16:09 CBC shows improving leukocytosis at 13.2, chemistries are improving with decreasing CBC unremarkable, VBG grossly unremarkable, chemistries grossly unremarkable except for an elevated glucose at 326 which is expected considering she is on steroids in a diabetic, urinalysis shows glucose but no signs of dehydration. Chest x-ray is negative, given the persistence of her symptoms I ordered a CT angiogram of the chest as well and this is negative does not even show small amount of pneumonia. Troponin negative. EKG unremarkable. Patient will be discharged to home. No further diarrhea in the emergency department. Told that she may use Imodium if necessary. - Vital Signs Vital signs: Temp Pulse Resp BP Pulse Ox 99.3 F 74 18 170/59 H 98 11/03/18 09:29 11/03/18 09:29 11/03/18 09:29 11/03/18 09:29 11/03/18 09:29 - Laboratory Result Diagrams: 11/03/18 11:50 11/03/18 11:50 Laboratory results interpreted by me: 11/03/18 11/03/18 11/03/18 10:42 11:50 11:50 VBG pH 7.43 H Sodium 134.6 L Glucose 326 H Urine Glucose (UA) >=500 H - EKG Interpretation by Me Additional EKG results interpreted by me: 11/03/18 12:22 EKG shows sinus bradycardia at a rate of 47, first-degree AV block, left bundle branch block, multiple PACs, poor R wave progression, no STEMI per my interpretation. Discharge - Discharge Clinical Impression: Bronchitis Hyperglycemia due to type 2 diabetes mellitus Qualifiers: Diabetes mellitus custodial insulin use: without custodial use Qualified Code(s): E11.65 - Type 2 diabetes mellitus with hyperglycemia Steroid side effects Qualifiers: Encounter type: initial encounter Qualified Code(s): T38.0X5A - Adverse effect of glucocorticoids and synthetic analogues, initial encounter Condition: Stable Disposition: HOME, SELF-CARE Additional Instructions: Please continue taking your antibiotics as directed as they are gone. Continue taking your metformin. Follow-up with Dr. Jain as an outpatient. Referrals: MAXIMINO JAIN MD [Primary Care Provider] - Follow up as needed
[2018-11-03 12:32] LABS: ALKALINE PHOSPHATASE 112 U/L (38-126); ANION GAP 9 (5-19); ASPARTATE AMINO TRANSFERASE 19 U/L (14-36); BILIRUBIN,DIRECT 0.2 mg/dL (0.0-0.4); BILIRUBIN,TOTAL 0.6 mg/dL (0.2-1.3); BLOOD UREA NITROGEN 14 mg/dL (7-20); CALCIUM 8.9 mg/dL (8.4-10.2); CARBON DIOXIDE 27 mmol/L (22-30); CHLORIDE 99 mmol/L (98-107); GLUCOSE 326 mg/dL (75-110); POTASSIUM 4.5 mmol/L (3.6-5.0); TOTAL PROTEIN 6.4 g/dL (6.3-8.2)
[2018-11-03] MEDS ORDERED: METHYLPREDNISOLONE INJ 125 MG/2 ML SDV IV ONE (13:08)
[2018-11-03] MEDS ORDERED: FAMOTIDINE INJ/PF 20 MG/2 ML SDV IV ONE (13:08)
--- NOTE | 2018-11-03 15:24 | RADIOLOGY REPORT (SQ) ---
EXAM DESCRIPTION: CTA CHEST COMPLETED DATE/TIME: 11/03/2018 2:58 pm REASON FOR STUDY: persistent cough and SOB after 2 weeks COMPARISON: Chest films 11/03/2018, 11/01/2018 TECHNIQUE: CT scan of the chest performed using helical scanning technique with dynamic intravenous contrast injection. Images reviewed with lung, soft tissue and bone windows. Reconstructed coronal and sagittal MPR images reviewed. Additional 3 dimensional post-processing performed to develop Maximal Intensity Projection images (ND P). All images stored on PACS. All CT scanners at this facility use dose modulation, iterative reconstruction, and/or weight based d osing when appropriate to reduce radiation dose to as low as reasonably achievable (ALARA). [facility]: Dose Right [facility]: CareDose [facility]: Dose Right [facility]: Teradose 4D [facility]: Clinked CONTRAST TYPE AND DOSE: contrast/concentration: Isovue 350.00 mg/ml; Total Contrast Delivered: 65.0 ml; Total Saline Delivered: 80.0 ml Contrast bolus optimized for the pulmonary arteries and thoracic aorta. RENAL FUNCTION: Creatinine 0.72 RADIATION DOSE: CT Rad equipment meets quality standard of care and radiation dose reduction techniq ues were employed. CTDIvol: 6.6 - 19.8 mGy. DLP: 703 mGy-cm. . LIMITATIONS: Mild motion artifact on imaging through the lung bases FINDINGS: LUNGS AND PLEURA: No masses, infiltrates, or pneumothorax. No pleural effusions or pleura l calcifications. AORTA AND GREAT VESSELS: No aneurysm or thoracic aortic dissection. HEART: Moderate cardiomegaly. Calcified aortic valve No pericardial effusion. No significant jaramillo ry artery calcifications. PULMONARY ARTERIES: No emboli visualized in the main pulmonary arteries or the proximal segmental bra nches. HILAR AND MEDIASTINAL STRUCTURES: No identified masses or abnormal nodes. HARDWARE: None in the chest. UPPER ABDOMEN: Post cholecystectomy THYROID AND OTHER SOFT TISSUES: No masses. No adenopathy. BONES: No acute or significant finding. 3D MIPS: Confirm above findings. OTHER: No other significant finding. IMPRESSION: NORMAL CTA OF THE CHEST. NO PULMONARY EMBOLI. COMMENT: Quality ID # [id number]: Final reports with documentation of one or more dose reduction techniques (e.g., Automated exposure control, adjustment of the mA and/or kV according to patient size, use of iterative reconstruction technique) TECHNICAL DOCUMENTATION: JOB ID: [id number] [employer]- All Rights Reserved Reading location - IP/workstation name: [email or web address]
[2018-11-03 16:49] VITALS: BP 180/58
--- NOTE | 2018-11-04 00:55 | EKG REPORT ---
SEVERITY:- ABNORMAL ECG - SINUS RHYTHM MULTIPLE ATRIAL PREMATURE COMPLEXES LEFT BUNDLE BRANCH BLOCK : Confirmed by: Aj Robert 04-Nov-2018 00:54:19
== END 2018-11-03 16:49 | disposition home or self-care (01) ==
LOC: ER 09:26
DX: J40 Bronchitis, not specified as acute or chronic (principal); T38.0X5A Adverse effect of glucocorticoids and synthetic analogues, initial encounter; E11.65 Type 2 diabetes mellitus with hyperglycemia; R09.89 Other specified symptoms and signs involving the circulatory and respiratory systems; R05 Cough; R32 Unspecified urinary incontinence; R19.7 Diarrhea, unspecified; R11.10 Vomiting, unspecified; R10.13 Epigastric pain; Z79.899 Other long term (current) drug therapy; I10 Essential (primary) hypertension
CPT/HCPCS: 93005; 94640; 99284; 96374; 36415; 87040; 87070; 87205; 83690; 85025; 80053; 81001; 84484; 82803; 71046; 71275; 93010; J2930; A9270 ×2; S0028; J7620

== ENCOUNTER 2018-11-13 19:22 | Emergency (ER) | payer MEDICARE, OTHER ==
--- NOTE | 2018-11-13 20:27 | ER Document Report ---
ED Medical Screen (RME) - General Chief Complaint: Fever Stated Complaint: TEMPERATURE Time Seen by Provider: 11/13/18 20:16 Primary Care Provider: MAXIMINO JAIN MD [Primary Care Provider] - Follow up as needed Notes: Patient is an 78-year-old female who presents the emergency department with a chief complaint of a fever. Patient states that her temperature is normally 97.6 and she took it earlier today and it was 99. She also states that she has had some diarrhea today. Patient also states that she feels like she has dry hands and lips. She has been using Monistat because she has some itching and burning in her vaginal area. States that she has not been diagnosed with a yeast infection. Past medical history includes hypertension, diabetes, and bronchitis. She was just recently placed on steroids. Exam: Mildly tender mid lower abdomen. I have greeted and performed a rapid initial assessment of this patient. A comprehensive ED assessment and evaluation of the patient, analysis of test results and completion of medical decision making process will be conducted by an additional ED providers. TRAVEL OUTSIDE OF THE [place] IN LAST 30 DAYS: No - Related Data Allergies/Adverse Reactions: diphenhydramine HCl [From Benadryl] Allergy (Severe, Verified 11/03/18 09:41) trouble breathing, redness of skin cortisone [Cortisone] Allergy (Unknown, Verified 11/03/18 09:41) oxcarbazepine [From Trileptal] Allergy (Verified 11/03/18 09:41) WEIGHT LOSS erythromycin base [Erythromycin Base] Adverse Reaction (Mild, Verified 11/03/18 09:41) upset stomach Sulfa (Sulfonamide Antibiotics) Adverse Reaction (Mild, Verified 11/03/18 09:41) itchy eyes IVP dye Allergy (Mild, Uncoded 11/03/18 09:41) splotches Past Medical History - Social History Chew tobacco use (# tins/day): No Drug Abuse: None Family history: None - Past Medical History Cardiac Medical History: Reports: Hx Hypercholesterolemia, Hx Hypertension Denies: Hx Coronary Artery Disease - Neg cath 11/16, Hx Heart Attack - catherization Pulmonary Medical History: Reports: Hx Bronchitis Denies: Hx Asthma, Hx COPD, Hx Pneumonia, Hx Tuberculosis Neurological Medical History: Denies: Hx Cerebrovascular Accident, Hx Seizures Endocrine Medical History: Reports: Hx Diabetes Mellitus Type 2 Renal/ Medical History: Denies: Hx Peritoneal Dialysis GI Medical History: Reports: Hx Gastroesophageal Reflux Disease, Hx Hiatal Hernia, Hx Ulcer - years ago, Hx Colonoscopy, Hx Endoscopy. Denies: Hx Hepatitis Musculoskeltal Medical History: Reports Hx Arthritis Psychiatric Medical History: Reports: Hx Anxiety, Hx Bipolar Disorder, Hx Depression Infectious Medical History: Denies: Hx Hepatitis Past Surgical History: Reports: Hx Cardiac Catheterization - 11/2011, Hx Cholecystectomy, Hx Hysterectomy, Hx Orthopedic Surgery - cyst removed right wrist and right shoulder, Other - cyst removed from right shoulder and hand, 8 eye surgeries. Denies: Hx Mastectomy, Hx Open Heart Surgery, Hx Pacemaker - Immunizations Immunizations up to date: No Hx Diphtheria, Pertussis, Tetanus Vaccination: No - unk Physical Exam - Vital signs Vitals: Temp Pulse Resp BP Pulse Ox 98.9 F 57 L 12 183/65 H 96 11/13/18 20:06 11/13/18 20:06 11/13/18 20:06 11/13/18 20:06 11/13/18 20:06 Course - Vital Signs Vital signs: Temp Pulse Resp BP Pulse Ox 98.9 F 57 L 12 183/65 H 96 11/13/18 20:06 11/13/18 20:06 11/13/18 20:06 11/13/18 20:06 11/13/18 20:06 Doctor's Discharge - Discharge Referrals: MAXIMINO JAIN MD [Primary Care Provider] - Follow up as needed
[2018-11-13 22:25] LABS: APPEARANCE,URINE CLEAR; BILIRUBIN,URINE NEGATIVE (NEGATIVE); COLOR,URINE STRAW; GLUCOSE, URINE >=500 mg/dL (NEGATIVE); KETONES,URINE NEGATIVE (NEGATIVE); LEUKOCYTE ESTERASE,URINE NEGATIVE (NEGATIVE); NITRITE,URINE NEGATIVE (NEGATIVE); PROTEIN,URINE NEGATIVE (NEGATIVE); URINE SPECIFIC GRAVITY 1.011; UROBILINOGEN,URINE NEGATIVE mg/dL (<2.0)
[2018-11-13 22:55] LABS: ABSOLUTE BASOPHILS # (AUTO) 0.1 10^3/uL (0.0-0.2); ABSOLUTE EOSINOPHILS # (AUTO) 0.3 10^3/uL (0.0-0.6); ABSOLUTE LYMPHOCYTES (AUTO) 1.5 10^3/uL (0.5-4.7); ABSOLUTE MONOCYTES (AUTO) 0.6 10^3/uL (0.1-1.4); ABSOLUTE NEUT (AUTO) 4.3 10^3/uL (1.7-8.2); BASOPHILS % (AUTO) 0.8 % (0-2); HEMATOCRIT 42.2 % (36.0-47.0); HEMOGLOBIN 14.3 g/dL (12.0-15.5); LYMPHOCYTES % (AUTO) 22.7 % (13-45); MEAN CORPUSCULAR HEMOGLOBIN 28.8 pg (27.0-33.4); MEAN CORPUSCULAR HGB CONC 33.8 g/dL (32.0-36.0); MEAN CORPUSCULAR VOLUME 85 fl (80-97); MONOCYTES % (AUTO) 9.2 % (3-13); PLATELET COUNT 174 10^3/uL (150-450); RED BLOOD COUNT 4.95 10^6/uL (3.72-5.28); RED CELL DISTRIBUTION WIDTH 13.6 % (11.5-14.0); SEGMENTED NEUTROPHILS % (AUTO) 63.3 % (42-78); TOTAL CELLS COUNTED % (AUTO) 100 %; WHITE BLOOD COUNT 6.8 10^3/uL (4.0-10.5)
[2018-11-13 23:10] LABS: ALBUMIN 3.8 g/dL (3.5-5.0); ALKALINE PHOSPHATASE 118 U/L (38-126); ANION GAP 7 (5-19); ASPARTATE AMINO TRANSFERASE 22 U/L (14-36); BILIRUBIN,DIRECT 0.1 mg/dL (0.0-0.4); BILIRUBIN,TOTAL 0.5 mg/dL (0.2-1.3); BLOOD UREA NITROGEN 12 mg/dL (7-20); CALCIUM 8.9 mg/dL (8.4-10.2); CARBON DIOXIDE 28 mmol/L (22-30); CHLORIDE 99 mmol/L (98-107); GLUCOSE 248 mg/dL (75-110); POTASSIUM 3.8 mmol/L (3.6-5.0); TOTAL PROTEIN 6.5 g/dL (6.3-8.2)
[2018-11-14] MEDS ORDERED: NORMAL SALINE 500 ML IV ONE (00:23)
--- NOTE | 2018-11-14 00:36 | ER Document Report ---
ED General - General Chief Complaint: Fever Stated Complaint: FEVER Time Seen by Provider: 11/13/18 20:16 Primary Care Provider: MAXIMINO JAIN MD [Primary Care Provider] - Follow up in 3-5 days Notes: Patient is an 78-year-old female that comes to the emergency department for chief complaint of feeling feverish today, she also states that she has been coughing for the better part of a month with some sputum production. Coughing has improved, she did have 3 episodes of diarrhea yesterday but none today. She denies chest pain, abdominal pain, flank pain, dysuria, or any particular complaints at this time. She is a history of type 2 diabetes, hypertension, hyperlipidemia, cholecystectomy, hysterectomy. TRAVEL OUTSIDE OF THE [place] IN LAST 30 DAYS: No - Related Data Allergies/Adverse Reactions: diphenhydramine HCl [From Benadryl] Allergy (Severe, Verified 11/03/18 09:41) trouble breathing, redness of skin cortisone [Cortisone] Allergy (Unknown, Verified 11/03/18 09:41) oxcarbazepine [From Trileptal] Allergy (Verified 11/03/18 09:41) WEIGHT LOSS erythromycin base [Erythromycin Base] Adverse Reaction (Mild, Verified 11/03/18 09:41) upset stomach Sulfa (Sulfonamide Antibiotics) Adverse Reaction (Mild, Verified 11/03/18 09:41) itchy eyes IVP dye Allergy (Mild, Uncoded 11/03/18 09:41) splotches Past Medical History - General Information source: Patient - Social History Smoking Status: Never Smoker Chew tobacco use (# tins/day): No Drug Abuse: None Lives with: Family Family History: Reviewed & Not Pertinent Patient has suicidal ideation: No Patient has homicidal ideation: No - Past Medical History Cardiac Medical History: Reports: Hx Hypercholesterolemia, Hx Hypertension Denies: Hx Coronary Artery Disease - Neg cath 11/16, Hx Heart Attack - catherization Pulmonary Medical History: Reports: Hx Bronchitis Denies: Hx Asthma, Hx COPD, Hx Pneumonia, Hx Tuberculosis Neurological Medical History: Denies: Hx Cerebrovascular Accident, Hx Seizures Endocrine Medical History: Reports: Hx Diabetes Mellitus Type 2 Renal/ Medical History: Denies: Hx Peritoneal Dialysis GI Medical History: Reports: Hx Gastroesophageal Reflux Disease, Hx Hiatal Hernia, Hx Ulcer - years ago, Hx Colonoscopy, Hx Endoscopy. Denies: Hx Hepatitis Musculoskeletal Medical History: Reports Hx Arthritis Psychiatric Medical History: Reports: Hx Anxiety, Hx Bipolar Disorder, Hx D epression Infectious Medical History: Denies: Hx Hepatitis Past Surgical History: Reports: Hx Cardiac Catheterization - 11/2011, Hx Cholecystectomy, Hx Hysterectomy, Hx Orthopedic Surgery - cyst removed right wrist and right shoulder, Other - cyst removed from right shoulder and hand, 8 eye surgeries. Denies: Hx Mastectomy, Hx Open Heart Surgery, Hx Pacemaker - Immunizations Immunizations up to date: No Hx Diphtheria, Pertussis, Tetanus Vaccination: No - unk Hx Pneumococcal Vaccination: 11/06/11 Review of Systems - Review of Systems Constitutional: See HPI EENT: No symptoms reported Cardiovascular: No symptoms reported Respiratory: See HPI Gastrointestinal: See HPI Genitourinary: No symptoms reported Female Genitourinary: No symptoms reported Musculoskeletal: No symptoms reported Skin: No symptoms reported Hematologic/Lymphatic: No symptoms reported Neurological/Psychological: No symptoms reported Physical Exam - Vital signs Vitals: Temp Pulse Resp BP Pulse Ox 98.9 F 57 L 12 183/65 H 96 11/13/18 20:06 11/13/18 20:06 11/13/18 20:06 11/13/18 20:06 11/13/18 20:06 - Notes Notes: GENERAL: Alert, interacts well. No acute distress. HEAD: Normocephalic, atraumatic. EYES: Pupils equal, round, and reactive to light. Extraocular movements intact. ENT: Oral mucosa moist, tongue midline. Oropharynx unremarkable. Airway patent. Nares patent, no nasal septal hematoma, TM's intact. NECK: Full range of motion. Supple. Trachea midline. LUNGS: Soft rhonchi and a few soft rales in the mid to lower lung chavarria on the left, right side is clear, no tachypnea, no signs of distress. HEART: Regular rate and rhythm. No murmur ABDOMEN: Soft, non-tender. Non-distended. Bowel sounds present in all 4 quadrants. GENITOURINARY: Deferred EXTREMITIES: Moves all 4 extremities spontaneously. No edema, normal radial and dorsalis pedis pulses bilaterally. No cyanosis. BACK: no cervical, thoracic, lumbar midline tenderness. No saddle anesthesia, normal distal neurovascular exam. Moves all extremities in full range of motion. NEUROLOGICAL: Alert and oriented x3. Normal speech. Cranial nerves II through XII grossly intact. PSYCH: Normal affect, normal mood. SKIN: Warm, dry, normal turgor. No rashes or lesions noted. Course - Re-evaluation Re-evalutation: Patient states she is having chills, she tells me she has had a fever but she has not had a temperature above 99 F. Initially she was hypertensive but this did improve with monitoring. However on examination she does have coughing, she also has some rhonchi and very soft rales in the left mid to lower lung field which do suggest pneumonia. This is not bilateral suggesting CHF. She does not have lower extremity edema. She does not have hypoxia, tachypnea, tachycardia. Her abdomen is completely benign. Patient is very interactive and conversational. CBC, chemistry, troponin, chest x-ray, EKG without acute findings. Urinalysis unremarkable. There is some hyperglycemia without acidosis on chemistry but I discussed this with patient and this is borderline for her but actually better than her baseline. Patient is requesting treatment for what she believes is pneumonia. Because she does have coughing for so long and she does have some abnormal lung sounds on one side despite her negative work-up, because of her age, she was placed on doxycycline, she was referred to primary care for close follow-up, discussed return precautions in detail. Patient and family at beds aditya state appreciation and agreement. Stable at time of discharge. - Vital Signs Vital signs: Temp Pulse Resp BP Pulse Ox 97.9 F 57 L 17 144/64 H 95 11/14/18 03:04 11/14/18 03:04 11/14/18 03:04 11/14/18 03:04 11/14/18 03:04 - Laboratory Result Diagrams: 11/13/18 22:25 11/13/18 22:25 Laboratory results interpreted by me: 11/13/18 11/13/18 22:05 22:25 Sodium 134.3 L Glucose 248 H Urine Glucose (UA) >=500 H Discharge - Discharge Clinical Impression: Cough, Chills Condition: Stable Disposition: HOME, SELF-CARE Additional Instructions: Your work-up is reassuring, however because of your chills/fever symptoms and abnormal lung sounds with cough for a month we have placed you on doxycycline fo r suspected developing underlying pneumonia. Rest, take the antibiotics, take Tylenol if needed for fever/chills, follow close with primary care for additional management. Come back if you are worse including difficulty breathing, spiking fevers, passing out, vomiting, or any other new or concerning symptoms. Prescriptions: Fluconazole [Diflucan] 150 mg PO ONCE PRN #1 tablet PRN Reason: Doxycycline Hyclate 100 mg PO BID #14 capsule Referrals: MAXIMINO JAIN MD [Primary Care Provider] - Follow up in 3-5 days
--- NOTE | 2018-11-14 01:47 | RADIOLOGY REPORT (SQ) ---
CLINICAL HISTORY: cough x1 month, chills COMPARISON: 11/03/2018. TECHNIQUE: XR CHEST 2 VIEWS 11/14/2018 12:23 AM CDT FINDINGS: The heart is mildly enlarged. Lungs are clear without consolidation, atelectasis, mass or edema. There is no pleural effusion. There is no pneumothorax. There are no acute osseous findings. IMPRESSION: Clear lungs.
[2018-11-14] MEDS ORDERED: DOXYCYCLINE HYCLATE 100 MG TABLET PO ONE (02:12)
[2018-11-14 03:07] VITALS: BP 144/64
--- NOTE | 2018-11-14 07:43 | EKG REPORT ---
SEVERITY:- ABNORMAL ECG - SINUS BRADYCARDIA ATRIAL PREMATURE COMPLEX IVCD, CONSIDER ATYPICAL LBBB : Confirmed by: Jose Bell MD 14-Nov-2018 07:42:32
== END 2018-11-14 03:07 | disposition home or self-care (01) ==
LOC: ER 19:22
DX: R05 Cough (principal); R68.83 Chills (without fever); R09.89 Other specified symptoms and signs involving the circulatory and respiratory systems; E11.65 Type 2 diabetes mellitus with hyperglycemia; I10 Essential (primary) hypertension; Z88.8 Allergy status to other drugs, medicaments and biological substances; Z91.041 Radiographic dye allergy status
CPT/HCPCS: 93005; 99284; 96360; 36415; 85025; 80053; 81001; 84484; 71046; 93010; A9270; J7040

== ENCOUNTER 2018-11-17 11:11 | Emergency (ER) | payer MEDICARE, OTHER ==
--- NOTE | 2018-11-17 11:23 | ER Document Report ---
ED Medical Screen (RME) - General Chief Complaint: Back Pain Stated Complaint: BACK PAIN Time Seen by Provider: 11/17/18 11:14 Primary Care Provider: MAXIMINO JAIN MD [Primary Care Provider] - Follow up as needed Notes: Patient presents complaining of not feeling well. Patient states she has had several episodes of diaphoresis at home. Patient also complains of low back pain. Patient denies any urinary symptoms. Patient also reports she has had cough for the past month with some difficulty breathing recently. Patient denies any chest pain. I have greeted and performed a rapid initial assessment of this patient. A comprehensive ED assessment and evaluation of the patient, analysis of test results and completion of the medical decision making process will be conducted by additional ED providers. TRAVEL OUTSIDE OF THE [place] IN LAST 30 DAYS: No - Related Data Allergies/Adverse Reactions: diphenhydramine HCl [From Benadryl] Allergy (Severe, Verified 11/03/18 09:41) trouble breathing, redness of skin cortisone [Cortisone] Allergy (Unknown, Verified 11/03/18 09:41) oxcarbazepine [From Trileptal] Allergy (Verified 11/03/18 09:41) WEIGHT LOSS erythromycin base [Erythromycin Base] Adverse Reaction (Mild, Verified 11/03/18 09:41) upset stomach Sulfa (Sulfonamide Antibiotics) Adverse Reaction (Mild, Verified 11/03/18 09:41) itchy eyes IVP dye Allergy (Mild, Uncoded 11/03/18 09:41) splotches Past Medical History - Social History Chew tobacco use (# tins/day): No Frequency of alcohol use: Occasional Drug Abuse: None Family history: None - Past Medical History Cardiac Medical History: Reports: Hx Hypercholesterolemia, Hx Hypertension Denies: Hx Coronary Artery Disease - Neg cath 11/16, Hx Heart Attack - catherization Pulmonary Medical History: Reports: Hx Bronchitis Denies: Hx Asthma, Hx COPD, Hx Pneumonia, Hx Tuberculosis Neurological Medical History: Denies: Hx Cerebrovascular Accident, Hx Seizures Endocrine Medical History: Reports: Hx Diabetes Mellitus Type 2 Renal/ Medical History: Denies: Hx Peritoneal Dialysis GI Medical History: Reports: Hx Gastroesophageal Reflux Disease, Hx Hiatal Hernia, Hx Ulcer - years ago, Hx Colonoscopy, Hx Endoscopy. Denies: Hx Hepatitis Musculoskeltal Medical History: Reports Hx Arthritis Psychiatric Medical History: Reports: Hx Anxiety, Hx Bipolar Disorder, Hx Depression Infectious Medical History: Denies: Hx Hepatitis Past Surgical History: Reports: Hx Cardiac Catheterization - 11/2011, Hx Cholecystectomy, Hx Hysterectomy, Hx Orthopedic Surgery - cyst removed right wrist and right shoulder, Other - cyst removed from right shoulder and hand, 8 eye surgeries. Denies: Hx Mastectomy, Hx Open Heart Surgery, Hx Pacemaker - Immunizations Immunizations up to date: No Hx Diphtheria, Pertussis, Tetanus Vaccination: No - unk Physical Exam - General General appearance: Appears well, Alert - Respiratory Respiratory status: No respiratory distress Breath sounds: Nonproductive cough Doctor's Discharge - Discharge Referrals: MAXIMINO JAIN MD [Primary Care Provider] - Follow up as needed
[2018-11-17 12:02] LABS: ABSOLUTE BASOPHILS # (AUTO) 0.1 10^3/uL (0.0-0.2); ABSOLUTE EOSINOPHILS # (AUTO) 0.4 10^3/uL (0.0-0.6); ABSOLUTE LYMPHOCYTES (AUTO) 1.2 10^3/uL (0.5-4.7); ABSOLUTE MONOCYTES (AUTO) 0.5 10^3/uL (0.1-1.4); ABSOLUTE NEUT (AUTO) 4.5 10^3/uL (1.7-8.2); BASOPHILS % (AUTO) 1.3 % (0-2); EOSINOPHILS % (AUTO) 5.3 % (0-6); HEMATOCRIT 46.1 % (36.0-47.0); HEMOGLOBIN 15.3 g/dL (12.0-15.5); MEAN CORPUSCULAR HEMOGLOBIN 28.2 pg (27.0-33.4); MEAN CORPUSCULAR HGB CONC 33.1 g/dL (32.0-36.0); MEAN CORPUSCULAR VOLUME 85 fl (80-97); PLATELET COUNT 209 10^3/uL (150-450); RED BLOOD COUNT 5.41 10^6/uL (3.72-5.28); RED CELL DISTRIBUTION WIDTH 13.7 % (11.5-14.0); SEGMENTED NEUTROPHILS % (AUTO) 67.4 % (42-78); TOTAL CELLS COUNTED % (AUTO) 100 %; WHITE BLOOD COUNT 6.7 10^3/uL (4.0-10.5)
[2018-11-17 12:16] LABS: APPEARANCE,URINE CLEAR; BILIRUBIN,URINE NEGATIVE (NEGATIVE); COLOR,URINE YELLOW; GLUCOSE, URINE >=500 mg/dL (NEGATIVE); KETONES,URINE NEGATIVE (NEGATIVE); LEUKOCYTE ESTERASE,URINE NEGATIVE (NEGATIVE); NITRITE,URINE NEGATIVE (NEGATIVE); PROTEIN,URINE NEGATIVE (NEGATIVE); URINE SPECIFIC GRAVITY 1.018; UROBILINOGEN,URINE NEGATIVE mg/dL (<2.0)
[2018-11-17 12:17] LABS: ALBUMIN 4.2 g/dL (3.5-5.0); ALKALINE PHOSPHATASE 89 U/L (38-126); ANION GAP 9 (5-19); ASPARTATE AMINO TRANSFERASE 32 U/L (14-36); BILIRUBIN,DIRECT 0.1 mg/dL (0.0-0.4); BILIRUBIN,TOTAL 0.8 mg/dL (0.2-1.3); BLOOD UREA NITROGEN 12 mg/dL (7-20); CALCIUM 9.2 mg/dL (8.4-10.2); CARBON DIOXIDE 28 mmol/L (22-30); CHLORIDE 101 mmol/L (98-107); GLUCOSE 289 mg/dL (75-110); POTASSIUM 4.3 mmol/L (3.6-5.0)
--- NOTE | 2018-11-17 12:17 | RADIOLOGY REPORT (SQ) ---
EXAM DESCRIPTION: CHEST 2 VIEWS COMPLETED DATE/TIME: 11/17/2018 12:04 pm REASON FOR STUDY: DIFF BREATHING COMPARISON: 11/14/2018 NUMBER OF VIEWS: Two view. TECHNIQUE: Frontal and lateral radiographic views of the chest acquired. LIMITATIONS: None. FINDINGS: LUNGS AND PLEURA: No opacities, masses or pneumothorax. No pleural effusion. Attenuated bl ood vessels and flattened adrianna-diaphragms. MEDIASTINUM AND HILAR STRUCTURES: No masses. No contour abnormalities. HEART AND VASCULAR STRUCTURES: Cardiomegaly. No evidence for failure. BONES: No acute findings. HARDWARE: None in the chest. OTHER: No other significant finding. IMPRESSION: COPD. NO ACUTE RADIOGRAPHIC FINDING IN THE CHEST. TECHNICAL DOCUMENTATION: JOB ID: [id number] [email or web address]- All Rights Reserved Reading location - IP/workstation name: [email or web address]
[2018-11-17 12:29] LABS: NT PRO BNP 253 pg/mL (<450)
[2018-11-17 12:39] LABS: TROPONIN I < 0.012 ng/mL
[2018-11-17] MEDS ORDERED: METHOCARBAMOL 750 MG TABLET PO ONE (13:27)
--- NOTE | 2018-11-17 13:29 | ER Document Report ---
ED General - General Chief Complaint: Flank Pain Stated Complaint: BACK PAIN Time Seen by Provider: 11/17/18 11:14 Primary Care Provider: MAXIMINO JAIN MD [Primary Care Provider] - Follow up as needed TRAVEL OUTSIDE OF THE [place] IN LAST 30 DAYS: No - HPI Notes: Patient is an 78-year-old female who presents to the emergency department for evaluation. She states she has a cough, that is been ongoing for all of October. She is currently on her second antibiotic. She states she feels slightly short of breath still. She is been having "soaking sweats" for the entire time this is been happening as well. She is currently taking doxycycline. Patient also states that this morning she noticed pain in her lower back. It does not hurt when she is not moving. When she moves it hurts. It sharp and stabbing. She has not really tried any medications to make it feel better. She denies any bowel or bladder incontinence, no saddle anesthesia, no focal numbness or weakness. - Related Data Allergies/Adverse Reactions: diphenhydramine HCl [From Benadryl] Allergy (Severe, Verified 11/17/18 11:22) trouble breathing, redness of skin cortisone [Cortisone] Allergy (Unknown, Verified 11/17/18 11:22) oxcarbazepine [From Trileptal] Allergy (Verified 11/17/18 11:22) WEIGHT LOSS erythromycin base [Erythromycin Base] Adverse Reaction (Mild, Verified 11/17/18 11:22) upset stomach Sulfa (Sulfonamide Antibiotics) Adverse Reaction (Mild, Verified 11/17/18 11:22) itchy eyes IVP dye Allergy (Mild, Uncoded 11/17/18 11:22) splotches Past Medical History - General Information source: Patient - Social History Smoking Status: Never Smoker Chew tobacco use (# tins/day): No Frequency of alcohol use: Occasional Drug Abuse: None Family History: Reviewed & Not Pertinent Patient has suicidal ideation: No Patient has homicidal ideation: No - Past Medical History Cardiac Medical History: Reports: Hx Hypercholesterolemia, Hx Hypertension Denies: Hx Coronary Artery Disease - Neg cath 11/16 Comment Only: Hx Heart Attack - catherization Pulmonary Medical History: Reports: Hx Bronchitis Denies: Hx Asthma, Hx COPD, Hx Pneumonia, Hx Tuberculosis Neurological Medical History: Denies: Hx Cerebrovascular Accident, Hx Seizures Endocrine Medical History: Reports: Hx Diabetes Mellitus Type 2 Renal/ Medical History: Denies: Hx Peritoneal Dialysis GI Medical History: Reports: Hx Gastroesophageal Reflux Disease, Hx Hiatal Hernia, Hx Ulcer - years ago, Hx Colonoscopy, Hx Endoscopy. Denies: Hx Hepatitis Musculoskeletal Medical History: Reports Hx Arthritis Psychiatric Medical History: Reports: Hx Anxiety, Hx Bipolar Disorder, Hx Depression Infectious Medical History: Denies: Hx Hepatitis Past Surgical History: Reports: Hx Cardiac Catheterization - 11/2011, Hx Cholecystectomy, Hx Hysterectomy, Hx Orthopedic Surgery - cyst removed right wrist and right shoulder, Other - cyst removed from right shoulder and hand, 8 eye surgeries. Denies: Hx Mastectomy, Hx Open Heart Surgery, Hx Pacemaker - Immunizations Immunizations up to date: No Hx Diphtheria, Pertussis, Tetanus Vaccination: No - unk Hx Pneumococcal Vaccination: 11/06/11 Review of Systems - Review of Systems Constitutional: See HPI EENT: No symptoms reported Cardiovascular: No symptoms reported Respiratory: See HPI Gastrointestinal: No symptoms reported Genitourinary: No symptoms reported Musculoskeletal: See HPI Skin: No symptoms reported Neurological/Psychological: No symptoms reported Physical Exam - Vital signs Vitals: Temp Pulse Resp BP Pulse Ox 98.5 F 111 H 18 159/89 H 97 11/17/18 11:19 11/17/18 11:19 11/17/18 11:19 11/17/18 11:19 11/17/18 11:19 - Notes Notes: Vital signs reviewed, please refer to chart. Head is normocephalic, atraumatic. Pupils equal round, reactive to light. Neck is supple without meningismus. Heart is regular rate and rhythm. Lungs are clear to auscultation bilaterally. Abdomen is soft, nontender, normoactive bowel sounds throughout. Extremities without cyanosis, clubbing. Posterior calves are nontender. Peripheral pulses are equal. Skin is warm and dry. She does have multiple actinic keratoses noted on the back. Patient is awake, alert, neurological exam is nonfocal. Semination of the spine is no midline tenderness or step-off. She has no paraspinal musculature tenderness appreciated. She has some tenderness to palpation over the right SI joint, none over the piriformis. Negative straight leg raise bilaterally. Strength is 4+ out of 5 bilateral lower extremities. Reflexes are symmetrical. Sensation is intact. Course - Re-evaluation Re-evalutation: 11/17/18 13:26 Patient presents emergency department for evaluation of ongoing cough and low back pain. Laboratory investigations and imaging were obtained through triage. Patient is 98 to 100% on room air. Her lungs are clear. Her chest x-ray is normal. She is already being treated with antibiotics for potential pneumonia, appropriately with doxycycline. In regards to her back pain, it seems to be mechanical. It only hurts when she moves or when she is having the area palpated. She has no red flag symptoms. I will send her home with some muscle relaxers. Her laboratory investigations revealed only mild hyperglycemia, she is reminded to watch her diet. She is to follow-up with her primary care physician this week, return to the emergency department with worsening or new concerning symptoms of any sort. - Vital Signs Vital signs: Temp Pulse Resp BP Pulse Ox 98.5 F 111 H 23 H 116/54 L 94 11/17/18 11:19 11/17/18 11:19 11/17/18 13:02 11/17/18 12:01 11/17/18 13:02 - Laboratory Result Diagrams: 11/17/18 11:39 11/17/18 11:39 Laboratory results interpreted by me: 11/17/18 11/17/18 11/17/18 11:39 11:39 11:55 RBC 5.41 H Glucose 289 H Urine Glucose (UA) >=500 H - Diagnostic Test Radiology reviewed: Reports reviewed Radiology results interpreted by me: 11/17/18 13:27 Chest X-Ray 11/17/18 00:00 IMPRESSION: COPD. NO ACUTE RADIOGRAPHIC FINDING IN THE CHEST. - EKG Interpretation by Me Additional EKG results interpreted by me: 11/17/18 13:27 Sinus mechanism with a rate of 72 bpm. First-degree AV block. Left bundle branch block. No significant change in compared to prior study. 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 Continue your antibiotics until gone. Follow-up with your doctor this week. Watch your diet closely to aid in controlling of your blood sugar. Return to the ED with worsening or new concerning symptoms of any sort. Referrals: MAXIMINO JAIN MD [Primary Care Provider] - Follow up as needed
[2018-11-17 13:51] VITALS: BP 162/51
--- NOTE | 2018-11-17 15:42 | EKG REPORT ---
SEVERITY:- ABNORMAL ECG - SINUS RHYTHM PROBABLE LEFT ATRIAL ABNORMALITY LEFT BUNDLE BRANCH BLOCK : Confirmed by: Jose Bell MD 17-Nov-2018 15:41:50
== END 2018-11-17 14:13 | disposition home or self-care (01) ==
LOC: ER 11:11
DX: J40 Bronchitis, not specified as acute or chronic (principal); J44.9 Chronic obstructive pulmonary disease, unspecified; M54.5 Low back pain; E11.65 Type 2 diabetes mellitus with hyperglycemia; I44.0 Atrioventricular block, first degree; I44.7 Left bundle-branch block, unspecified; L57.0 Actinic keratosis; R05 Cough; R06.02 Shortness of breath; R61 Generalized hyperhidrosis; I10 Essential (primary) hypertension; Z88.8 Allergy status to other drugs, medicaments and biological substances; Z91.041 Radiographic dye allergy status
CPT/HCPCS: 93005; 99284; 36415; 85025; 80053; 81001; 84484; 83880; 71046; 93010; A9270; J3490

== ENCOUNTER → 2019-01-06 | Outpatient (CLI) | payer MEDICARE, OTHER | LOC: OD 16:16 | PROVIDERS: ATTEND Family Medicine | DX: E11.9 Type 2 diabetes mellitus without complications (principal); Z79.899 Other long term (current) drug therapy | CPT/HCPCS: 36415; 83036 ==

== ENCOUNTER 2019-03-16 00:31 | Emergency (ER) | payer MEDICARE, OTHER ==
[2019-03-16 00:40] VITALS: BP 135/71
--- NOTE | 2019-03-16 01:00 | ER Document Report ---
ED Medical Screen (RME) - General Chief Complaint: Leg Pain Stated Complaint: RIGHT LEG PAIN Time Seen by Provider: 03/16/19 00:49 Primary Care Provider: YON WILLETT MD [Primary Care Provider] - Follow up as needed Mode of Arrival: Ambulatory Information source: Patient Notes: This 79-year-old female with history of diabetes presents emergency department with complaints of knee pain and hand pain. Patient gives history of a couple days ago she was in the store and all of a sudden her right knee started hurting. She denies falling. She denies twisting her knee. She also reports that today she was bringing her garbage can in when the wind blew the garbage can and she fell almost putting her head in the garbage can. She reports she landed on her knees and her hands. Did not hit her head. She is not on anticoagulants. No change in LOC. She now complains of left hand pain and her right knee hurting. Patient declines any type of medication at this time reports she has her own medication. Patient drove herself here. I have greeted and performed a rapid initial assessment of this patient. A comprehensive ED assessment and evaluation of the patient, analysis of test results and completion of the medical decision making process will be conducted by additional ED providers. TRAVEL OUTSIDE OF THE [place] IN LAST 30 DAYS: No - Related Data Allergies/Adverse Reactions: diphenhydramine HCl [From Benadryl] Allergy (Severe, Verified 11/17/18 11:22) trouble breathing, redness of skin cortisone [Cortisone] Allergy (Unknown, Verified 11/17/18 11:22) oxcarbazepine [From Trileptal] Allergy (Verified 11/17/18 11:22) WEIGHT LOSS erythromycin base [Erythromycin Base] Adverse Reaction (Mild, Verified 11/17/18 11:22) upset stomach Sulfa (Sulfonamide Antibiotics) Adverse Reaction (Mild, Verified 11/17/18 11:22) itchy eyes IVP dye Allergy (Mild, Uncoded 11/17/18 11:22) splotches Past Medical History - Social History Family history: None - Past Medical History Cardiac Medical History: Reports: Hx Atrial Fibrillation, Hx Hypercholesterolemia, Hx Hypertension Denies: Hx Coronary Artery Disease - Neg cath 11/16 Comment Only: Hx Heart Attack - catherization Pulmonary Medical History: Reports: Hx Bronchitis Denies: Hx Asthma, Hx COPD, Hx Pneumonia, Hx Tuberculosis Neurological Medical History: Denies: Hx Cerebrovascular Accident, Hx Seizures Endocrine Medical History: Reports: Hx Diabetes Mellitus Type 2 Renal/ Medical History: Denies: Hx Peritoneal Dialysis GI Medical History: Reports: Hx Gastroesophageal Reflux Disease, Hx Hiatal Hernia, Hx Ulcer - years ago, Hx Colonoscopy, Hx Endoscopy. Denies: Hx Hepatitis Musculoskeltal Medical History: Reports Hx Arthritis Psychiatric Medical History: Reports: Hx Anxiety, Hx Bipolar Disorder, Hx Depression Infectious Medical History: Denies: Hx Hepatitis Past Surgical History: Reports: Hx Cardiac Catheterization - 11/2011, Hx Cholecystectomy, Hx Hysterectomy, Hx Orthopedic Surgery - cyst removed right wrist and right shoulder, Other - cyst removed from right shoulder and hand, 8 eye surgeries. Denies: Hx Mastectomy, Hx Open Heart Surgery, Hx Pacemaker - Immunizations Immunizations up to date: No Hx Diphtheria, Pertussis, Tetanus Vaccination: No - unk Physical Exam - Vital signs Vitals: Temp Pulse Resp BP Pulse Ox 98.2 F 72 16 135/71 H 97 03/16/19 00:38 03/16/19 00:38 03/16/19 00:38 03/16/19 00:38 03/16/19 00:38 Course - Vital Signs Vital signs: Temp Pulse Resp BP Pulse Ox 98.2 F 72 16 135/71 H 97 03/16/19 00:38 03/16/19 00:38 03/16/19 00:38 03/16/19 00:38 03/16/19 00:38 Doctor's Discharge - Discharge Referrals: YON WILLETT MD [Primary Care Provider] - Follow up as needed
--- NOTE | 2019-03-16 01:32 | RADIOLOGY REPORT (SQ) ---
EXAM DESCRIPTION: XR HAND 3 OR MORE VIEWS COMPLETED DATE/TME: 03/16/2019 00:58 CLINICAL HISTORY: 79 years, Female, HAND PAIN, FALL COMPARISON: None. NUMBER OF VIEWS: 3 TECHNIQUE: 3 views left hand LIMITATIONS: None. FINDINGS: Osteopenia. Degenerative changes of the first CMC joint. Mild degenerative change of the wrist. Negative for acute fracture or dislocation. Well-corticated ossific density near the ulnar styloid likely reflect sequelae of old trauma or loose body. Degenerative change of the distal radial ulnar joint. IMPRESSION: Osteopenia with degenerative change. No acute osseous abnormality copyright 2010 [employer]- All Rights Reserved
--- NOTE | 2019-03-16 01:38 | RADIOLOGY REPORT (SQ) ---
EXAM DESCRIPTION: XR KNEE 4 OR MORE VIEWS COMPLETED DATE/TME: 03/16/2019 00:58 CLINICAL HISTORY: 79 years, Female, KNEE PAIN, FALL COMPARISON: None. NUMBER OF VIEWS: 4 TECHNIQUE: 4 views right knee LIMITATIONS: None. FINDINGS: Negative for acute fracture or dislocation. Osteopenia. Mild tricompartmental degenerative change. No evidence for joint effusion IMPRESSION: Osteopenia with mild degenerative change copyright 2010 [email or web address]- All Rights Reserved
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
== END 2019-03-16 02:34 | disposition home or self-care (01) ==
LOC: ER 00:31
DX: M79.642 Pain in left hand (principal); M25.561 Pain in right knee; M25.532 Pain in left wrist; W10.2XXA Fall (on)(from) incline, initial encounter; Y93.89 Activity, other specified; I10 Essential (primary) hypertension; E11.9 Type 2 diabetes mellitus without complications
CPT/HCPCS: 99283

== ENCOUNTER → 2019-05-01 | Outpatient (CLI) | payer MEDICARE, OTHER | LOC: OD 12:33 | PROVIDERS: ATTEND Family Medicine | DX: R14.0 Abdominal distension (gaseous) (principal); R10.9 Unspecified abdominal pain; E11.65 Type 2 diabetes mellitus with hyperglycemia | CPT/HCPCS: 36415; 82150; 83690; 87338 ==

== ENCOUNTER → 2019-12-09 | Outpatient (CLI) | payer MEDICARE, OTHER ==
[2019-12-09 11:31] LABS: ANION GAP 7 (5-19); BLOOD UREA NITROGEN 17 mg/dL (7-20); CALCIUM 9.7 mg/dL (8.4-10.2); CARBON DIOXIDE 31 mmol/L (22-30); CHLORIDE 100 mmol/L (98-107); GLUCOSE 187 mg/dL (75-110); POTASSIUM 5.2 mmol/L (3.6-5.0); TRIGLYCERIDES 128 mg/dL (<150)
[2019-12-09 11:42] LABS: DIRECT LDL 197 mg/dL (<100)
== END ==
LOC: OD 09:42
PROVIDERS: ATTEND Family Medicine
DX: E11.65 Type 2 diabetes mellitus with hyperglycemia (principal); E11.40 Type 2 diabetes mellitus with diabetic neuropathy, unspecified; E78.2 Mixed hyperlipidemia
CPT/HCPCS: 36415; 80048; 80061; 82043; 82570; 83036; 84443

== ENCOUNTER 2019-12-12 15:48 | Emergency (ER) | payer OTHER, MEDICARE ==
[2019-12-12] MEDS ORDERED: OXYCODONE HCL IR 5 MG TABLET PO ONE (16:43)
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
[2019-12-12 18:52] LABS: ABSOLUTE BASOPHILS # (AUTO) 0.1 10^3/uL (0.0-0.2); ABSOLUTE EOSINOPHILS # (AUTO) 0.1 10^3/uL (0.0-0.6); ABSOLUTE LYMPHOCYTES (AUTO) 1.4 10^3/uL (0.5-4.7); ABSOLUTE MONOCYTES (AUTO) 0.8 10^3/uL (0.1-1.4); ABSOLUTE NEUT (AUTO) 11.8 10^3/uL (1.7-8.2); BASOPHILS % (AUTO) 0.6 % (0-2); EOSINOPHILS % (AUTO) 0.9 % (0-6); HEMATOCRIT 48.3 % (36.0-47.0); HEMOGLOBIN 16.5 g/dL (12.0-15.5); LYMPHOCYTES % (AUTO) 9.6 % (13-45); MEAN CORPUSCULAR HEMOGLOBIN 28.8 pg (27.0-33.4); MEAN CORPUSCULAR HGB CONC 34.3 g/dL (32.0-36.0); MEAN CORPUSCULAR VOLUME 84 fl (80-97); MONOCYTES % (AUTO) 5.9 % (3-13); PLATELET COUNT 227 10^3/uL (150-450); RED BLOOD COUNT 5.75 10^6/uL (3.72-5.28); RED CELL DISTRIBUTION WIDTH 13.3 % (11.5-14.0); TOTAL CELLS COUNTED % (AUTO) 100 %; WHITE BLOOD COUNT 14.3 10^3/uL (4.0-10.5)
[2019-12-12 19:23] LABS: APPEARANCE,URINE CLEAR; BILIRUBIN,URINE NEGATIVE (NEGATIVE); COLOR,URINE YELLOW; GLUCOSE, URINE 50 mg/dL (NEGATIVE); KETONES,URINE NEGATIVE (NEGATIVE); PROTEIN,URINE 30 mg/dL (NEGATIVE); URINE SPECIFIC GRAVITY 1.009; UROBILINOGEN,URINE NEGATIVE mg/dL (<2.0)
[2019-12-12 19:27] LABS: ALBUMIN 4.8 g/dL (3.5-5.0); ALKALINE PHOSPHATASE 100 U/L (38-126); ANION GAP 13 (5-19); ASPARTATE AMINO TRANSFERASE 24 U/L (14-36); BILIRUBIN,TOTAL 0.8 mg/dL (0.2-1.3); BLOOD UREA NITROGEN 15 mg/dL (7-20); CALCIUM 9.9 mg/dL (8.4-10.2); CARBON DIOXIDE 24 mmol/L (22-30); CHLORIDE 100 mmol/L (98-107); GLUCOSE 196 mg/dL (75-110); POTASSIUM 4.2 mmol/L (3.6-5.0)
[2019-12-12] MEDS ORDERED: DIPH/PERTUSS(ACELL)/TETANUS VAC/PF 0.5 ML SYR (>=10YO) IM ONE (20:57)
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
--- NOTE | 2019-12-12 21:51 | RADIOLOGY REPORT (SQ) ---
CT CERVICAL SPINE WITHOUT IV CONTRAST HISTORY: Neck pain. COMPARISON: None. TECHNIQUE: CT scan of the cervical spine was performed without IV contrast. This exam was performed according to our departmental dose-optimization program, which includes automated exposure control, adjustment of the mA and/or kV according to patient size and/or use of iterative reconstruction technique. FINDINGS: No acute cervical fracture or prevertebral soft tissue swelling is seen. There is straightening of the normal cervical lordosis, which may be due to cervical collar, muscle spasm, or patient positioning. There is multilevel degenerative disc disease as well as facet DJD throughout the cervical spine. The spinal canal is not well-visualized due to artifact. IMPRESSION: No acute fracture or subluxation of the cervical spine.
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
[2019-12-13] MEDS ORDERED: FENTANYL CITRATE INJ/PF 100 MCG/2 ML AMPUL IV ONE (01:23)
[2019-12-13 01:34] VITALS: BP 179/61
--- NOTE | 2019-12-13 06:57 | EKG REPORT ---
SEVERITY:- ABNORMAL ECG - SINUS TACHYCARDIA JAYNE, CONSIDER BIATRIAL ABNORMALITIES LEFT BUNDLE BRANCH BLOCK : Confirmed by: Dandy Arambula MD 13-Dec-2019 06:56:40
== END 2019-12-13 02:37 | disposition short-term general hospital (02) ==
LOC: ER 15:48
DX: S52.24 Spiral fracture of shaft of ulna (principal); S22.20XA Unspecified fracture of sternum, initial encounter for closed fracture; S20.01XA Contusion of right breast, initial encounter; S80.212A Abrasion, left knee, initial encounter; S30.1XXA Contusion of abdominal wall, initial encounter; M25.512 Pain in left shoulder; V89.2XXA Person injured in unspecified motor-vehicle accident, traffic, initial encounter; I48.91 Unspecified atrial fibrillation; E78.00 Pure hypercholesterolemia, unspecified; I10 Essential (primary) hypertension; E11.9 Type 2 diabetes mellitus without complications; Z88.2 Allergy status to sulfonamides; Z88.3 Allergy status to other anti-infective agents; Z23 Encounter for immunization
CPT/HCPCS: 93005; 99285; 90471; 96374; 36415; 85025; 80053; 81001; 84484; 71045; 73090; 73630; 73564; 72110; 73030; 71250; 72125; 74176; 90715; 93010; J3010